=== PATIENT | male | born 1960 | race Caucasian/White ===

== ENCOUNTER → 2022-08-29 10:26 | Outpatient (BNVA) | payer BC, SELFPAY | PROVIDERS: Family Provider Family Medicine; PCP Family Medicine; Visit Provider Family Medicine | DX: R05.3 Chronic cough (principal) | CPT/HCPCS: 71046 ==

== ENCOUNTER → 2022-10-19 13:24 | Outpatient (BNVA) | payer BC, MEDICAID, SELFPAY | PROVIDERS: Family Provider Family Medicine; PCP Family Medicine; Visit Provider Internal Medicine | DX: R07.9 Chest pain, unspecified (principal) | CPT/HCPCS: 36415; 80048; 83880; 93005 ==

== ENCOUNTER 2022-11-07 12:11 | Outpatient (CLI) | payer BC, MEDICAID, SELFPAY ==
--- NOTE | 2022-11-07 12:30 | USCV_ITS ---
Syd Gibbs Age: 61 Gender: M : 1960 Exam Date: 11/07/2022 12:29 Ordering Phys: Jakob Foy M.D ([email or web address]) Technologist: Gilles Ball Exam Location: [facility] [place] Indication: sob BP: 180 / 90 HR: 96 Rhythm: Sinus Technical Quality: Adequate MEASUREMENTS (Male / Female) Normal Values 2D ECHO LV Diastolic Diameter PLAX 3.3 cm 4.2 - 5.9 / 3.9 - 5.3 cm LV Systolic Diameter PLAX 1.9 cm IVS Diastolic Thickness 1.1 cm 0.6 - 1.0 / 0.6 - 0.9 cm IVS Systolic Thickness 2.3 cm LVPW Diastolic Thickness 1.6 cm 0.6 - 1.0 / 0.6 - 0.9 cm LVPW Systolic Thickness 1.9 cm LVOT Diameter 2.1 cm LV Ejection Fraction 2D Teich 74.0 % LV Ejection Fraction MOD 2C 61.5 % LV Ejection Fraction 2C AL 61.3 % LA Diameter 4.2 cm Aorta at Sinotubular Diameter 2.9 cm M-MODE Aortic Annulus Diameter 3.3 cm LA Ao Ratio MM 1.4 MV E Point Septal Separation 0.6 cm DOPPLER AV Peak Velocity 147.0 cm/s LVOT Peak Velocity 105.0 cm/s AV Area Cont Eq vti 2.7 cm squared AV Area Cont Eq pk 2.5 cm squared MV E' Velocity 10.0 cm/s TR Peak Velocity 120.0 cm/s TR Peak Gradient 5.8 mmHg TV Peak E Velocity 74.0 cm/s Right Atrial Pressure 3.0 mmHg Pulmonary Artery Systolic Pressu 8.8 mmHg PV Peak Velocity 127.0 cm/s FINDINGS Left Ventricle Left ventricle is normal in size. LV systolic function is normal with EF of 55 to 60%. No regional wall motion abnormalities are seen. Right Ventricle Normal in size and function Right Atrium Normal in size Left Atrium Normal in size Mitral Valve Structurally normal mitral valve. Aortic Valve Structurally normal aortic valve. No significant stenosis or regurgitation. Tricuspid Valve Mild tricuspid regurgitation. Insufficient TR jet to calculate RVSP. Pulmonic Valve Not well visualized Pericardium Normal Aorta Normal in size IVC Appears to be normal CONCLUSIONS LV systolic function is normal with EF of 55 to 60%. Mild tricuspid regurgitation No comparison studies are available. Jakob Foy MD (Electronically Signed) Final Date: 07 November 2022 17:15 S
[2022-11-07] MEDS: perflutren protein-a microsphr 0.22 mg/mL SDV 3 mL IV (15:52)
== END 2022-11-07 12:12 | disposition home or self-care (01) ==
PROVIDERS: Visit Provider Internal Medicine
DX: R06.02 Shortness of breath (principal); I07.1 Rheumatic tricuspid insufficiency
CPT/HCPCS: 93306; C8929; Q9956

== ENCOUNTER 2022-11-18 15:19 | Outpatient (CLI) | payer BC, MEDICAID, SELFPAY ==
--- NOTE | 2022-11-18 15:38 | CTR_ITS ---
PROCEDURE INFORMATION: Exam: CT Chest Without and With Contrast; Diagnostic Exam date and time: 11/18/2022 3:48 PM Age: 62 years old Clinical indication: Cough; Prior surgery; Surgery date: 6+ months; Surgery type: Appy; Patient HX: Chronic bronchitis, bilateral legs and feet swelling. TECHNIQUE: Imaging protocol: Diagnostic computed tomography of the chest without and with contrast. Radiation optimization: All CT scans at this facility use at least one of these dose optimization techniques: automated exposure control; mA and/or kV adjustment per patient size (includes targeted exams where dose is matched to clinical indication); or iterative reconstruction. Contrast material: OMNI 350; Contrast volume: 100 ml; Contrast route: INTRAVENOUS (IV); REPORTING DATA: Count of CT and Cardiac NM exams in prior 12 months: This patient has received 0 known CTs and 0 known cardiac nuclear medicine studies in the 12 months prior to the current study. COMPARISON: CR XR chest 2V* [id number] 08/29/2022 10:40 AM RADIATION DOSE METRICS: Total DLP (mGy-cm): 1312.79 FINDINGS: Lungs: Small calcified granuloma is seen upper right lung. A large area of pulmonary parenchymal density or consolidation is seen within the posterior lateral lower right lung and lung base with pleural-based appearance. This measures approximally 8 x 5 cm in size. Some scattered air bronchograms are seen, though with significant component without air bronchograms. Given the rounded and lobular appearance mass is not excluded. No other infiltrate or focal abnormality. Pleural spaces: No pleural effusion or pneumothorax. Heart: Unremarkable. Mild cardiomegaly. No pericardial effusion. No coronary artery calcification. Lymph nodes: Several lymph nodes are seen within the anterior and mid mediastinum, though measuring 1.2 cm or less in size. This could indicate mild reactive lymph nodes. Vasculature: Unremarkable. No aortic aneurysm. Bones/joints: No acute findings. Soft tissues: Unremarkable. Other findings: Images through the upper-most abdomen show no significant abnormality. CT/CT chest wo/w con [id number] IMPRESSION: 1. Large area of pulmonary parenchymal density/consolidation within the posterolateral lower right lung and lung base with pleural-based appearance. Some scattered air bronchograms, though demonstrating significant portion without air bronchograms. Given the rounded and lobular appearance, mass not excluded. 2. Mildly reactive lymph nodes in the anterior and mid mediastinum.
[2022-11-18] MEDS: iohexol 350 mg/mL 500 mL Btl (per mL) IV (15:58)
[2022-11-18 16:06] LABS: Anion Gap 14.3 (5-19); Blood Urea Nitrogen 9 mg/dL (8-23); Calcium 8.4 mg/dL (8.5-10.5); Carbon Dioxide 27 mmol/L (22-29); Chloride 101 mmol/L (98-107); Glomerular Filtration Rate 86.1 mL/min (90-130); Glucose 126 mg/dL (65-115); NT Pro B Type Natriuretic Pept 273 pg/mL (0-125); Osmolality Calculated 288 mOsm/kg (285-295); Potassium 3.3 mmol/L (3.5-5.1); Sodium 139 mmol/L (136-145)
== END 2022-11-18 15:20 | disposition home or self-care (01) ==
LOC: RAD 15:22
PROVIDERS: Internal Medicine; Visit Provider Family Medicine
DX: J42 Unspecified chronic bronchitis (principal); I10 Essential (primary) hypertension; R06.09 Other forms of dyspnea; R59.0 Localized enlarged lymph nodes; J98.4 Other disorders of lung
CPT/HCPCS: 36415; 71270; 80048; 83880; Q9967

== ENCOUNTER → 2022-12-01 15:45 | Outpatient (BNVA) | payer BC, MEDICAID, SELFPAY | PROVIDERS: Visit Provider Internal Medicine | DX: I10 Essential (primary) hypertension (principal); R06.09 Other forms of dyspnea; E11.9 Type 2 diabetes mellitus without complications | CPT/HCPCS: 80048; 83880 ==

== ENCOUNTER → 2022-12-15 15:12 | Outpatient (BNVA) | payer BC, MEDICAID, SELFPAY | PROVIDERS: Visit Provider Internal Medicine Pulmonary Disease | DX: J30.2 Other seasonal allergic rhinitis (principal); R06.09 Other forms of dyspnea; R05.8 Other specified cough; R91.8 Other nonspecific abnormal finding of lung field | CPT/HCPCS: 36415; 82785; 85025; 86003; 87070; 87205 ==

== ENCOUNTER 2022-12-24 05:32 | Outpatient (CLI) | payer BC, MEDICAID, SELFPAY ==
--- NOTE | 2022-12-24 12:00 | PETR_ITS ---
PROCEDURE INFORMATION: Exam: PET/CT Skull Base to Mid-thigh Exam date and time: 12/24/2022 12:54 PM Age: 62 years old Clinical indication: Abnormal findings; Lung mass; Prior surgery; Surgery date: 6+ months; Surgery type: Appy LABS AND CLINICAL REPORTS: Glucose: 79 mg/dl Treatment strategy for malignancy (PET staging): Initial Staging (PI) TECHNIQUE: Imaging protocol: Following at least four-hour fasting and following the injection of radiopharmaceutical, low dose CT images were obtained. Then, PET images were obtained. Attenuation corrected images were constructed using the CT scan. Fused images of PET and CT were reviewed. The standardized uptake values (SUV) reported below are maximum values within a region of interest, expressed in gm/ml. Exam includes orbital meatal line to mid-thigh. Radiopharmaceutical: 11.76 mCi F-18 FDG (Fluorodeoxyglucose), IV. Time of imaging post radiopharmaceutical administration: 1 hour Injection site: Right hand COMPARISON: CT chest wo/w con [id number] 11/18/2022 3:48 PM FINDINGS: Brain: Visualized brain has normal physiologic uptake. Pharynx: No abnormal uptake. Larynx: No abnormal uptake. Thyroid: A non radiotracer avid low-density left thyroid nodule measures 7 mm on series 3, image 36 compatible with a benign finding. Lungs, pleura and trachea: A right upper lobe calcified granuloma is noted. A large region of pleural based masslike consolidation in the posterior right lower lobe is noted in a region measuring 8.9 x 5.8 cm in the axial plane (previously 8.0 x 5.6 cm), SUV max 7.6. Heart: Normal physiologic uptake. Mediastinal space: No abnormal uptake. Diaphragm: Small hiatal hernia. Liver: No abnormal uptake. Gallbladder and bile ducts: No abnormal uptake. Pancreas: No abnormal uptake. Spleen: No abnormal uptake. Adrenal glands: No abnormal uptake. Kidneys and ureters: Normal physiologic uptake. Stomach and bowel: An approximately 1 cm focus of abnormal uptake in the mid sigmoid colon is present, SUV max 8.4 on PET series 5, image 131 without a definite correlating lesion on the CT images. Assessment of the bowel wall is limited without intraluminal contrast. There are scattered colonic diverticula. Vasculature: No abnormal uptake. Lymph nodes: Mildly elevated uptake within right hilar lymph nodes is noted, SUV max 3.9 on series 3, image 53 and SUV max 3.4 on image 58. Assessment of the size of lymph nodes in these regions is limited without intravenous contrast. A subcarinal lymph node measuring 1.8 x 1.0 cm on series 3, image 55 is present, SUV max 3.9. Bones/joints: There is abnormal uptake in the anterior left 3rd rib, SUV max 4.4 without a well-defined lesion on the CT images. There is mild diffuse vertebral body spondylosis. Soft tissues: There is benign-appearing likely physiologic or inflammatory uptake in the right gluteus medius muscle, SUV max 4.6, without a definite correlating lesion on the CT images. Mild prominence of bilateral breast tissue is greatest on the left, without significant elevated uptake suggestive of gynecomastia. METRICS: Mediastinal blood pool: SUV max 3.3 [facility] [id number] IMPRESSION: 1. Masslike consolidation in the posteroinferior right lower lobe is slightly increased in size and demonstrates elevated uptake (SUV max 7.6) concerning for malignancy. Atypical infectious involvement cannot be entirely excluded. 2. Mild uptake within right hilar lymph nodes and a subcarinal lymph node is noted which may be inflammatory, infectious or neoplastic in etiology. 3. Focal abnormal uptake in the anterior left 3rd rib. Although no definitive correlating lesion is noted on the CT images, the asymmetric appearance and degree of uptake is concerning for possible underlying metastatic lesion and/or minimally displaced fracture. MRI of the chest with and without contrast may be useful for further evaluation. 4. A small focal region of elevated uptake in the sigmoid colon is noted which may be physiologic in nature. An inflammatory or malignant etiology cannot be excluded. Assessment of the bowel wall is limited without intraluminal contrast. 5. Additional nonurgent findings as detailed above.
== END 2022-12-24 05:33 | disposition home or self-care (01) ==
LOC: RAD 12-26 05:32
PROVIDERS: Visit Provider Internal Medicine Pulmonary Disease
DX: R91.8 Other nonspecific abnormal finding of lung field (principal)
CPT/HCPCS: 78815; A9552

== ENCOUNTER 2023-01-03 08:23 | Day surgery (SDC) | payer BC, MEDICAID, SELFPAY ==
[2022-12-30 12:33] VITALS: BMI 43.4
[2023-01-03] VITALS (11 sets, daily range): BP systolic 112–165; BP diastolic 64–105; PULSE 70–88; RESP 16–24; TEMP 36.2–36.6; O2SAT 92–99
--- NOTE | 2023-01-03 08:38 | CT_ITS ---
WS: [id number] CT CHEST TECHNIQUE: Noncontrast CT of the chest with coronal and sagittal reformatted images. CLINICAL INFORMATION: FOR ION ROBOTIC ASSISTED BIOPSIES COMPARISON: PET/CT 12/24/[address] chest 11/18/2022 DLP: [address] scans at [facility] use at least one of these dose optimization techniques: automated e xposure control; mA and/or kV adjustment per patient size (includes targeted exams where dose is matc hed to clinical indication); or iterative reconstruction. FINDINGS: No significant changes since the recent PET/CT. Stable masslike consolidation in the posterior inferi or RIGHT lower lobe with increased FDG activity on the recent PET/CT suspicious for neoplasm. Small esophageal hiatal hernia. Adrenal glands are normal. Cardiomegaly. IMPRESSION: Images obtained for preoperative planning and bronchoscopy purposes
--- NOTE | 2023-01-03 09:09 | P.HPUD_ITS ---
Surgery/Procedure H&P Update DATE OF PROCEDURE: January 03, 2023 DATE H&P PERFORMED: 01/03/23 H&P UPDATE INFORMATION: I have reviewed H&P completed within last 30 days, I have examined patient prior to procedure, No changes to prior documentation and Changes to prior documentation as noted here CHANGES TO PREVIOUS DOCUMENTATION: Patient sendy CT 12/24/2022-which showed masslike consolidation in posterior inferior right lower lobe slightly increased in size and demonstrates elevated uptake SUV 7.6. Concerning for malignancy. Mild uptake within right hilar lymph nodes and subcarinal lymph node is noted with may be inflammatory, infec tious or neoplastic in etiology. Focal abnormal uptake in anterior left third rib PREOP DIAGNOSIS: suspected malignancy PRIMARY INDICATION FOR PROCEDURE: PETactive posterior right lower lobe mass - rule out malignancy PLANNED PROCEDURE: Operation Date: 01/03/23 09:30 Proposed Procedures p ION robotic bronch with EBUS [id number],[id number],[id number],[id number],22102,71 250, R91.8(Not Applicable) - Jeff Nelson MD s Ebus(Not Applicable) - Jeff Nelson MD
[2023-01-03] MEDS: sodium chloride 0.9% 1,000 ML 30 ML IV (09:31)
[2023-01-03] MEDS: ipratropium 0.5 mg/2.5 mL Neb INHALATION (10:18)
--- NOTE | 2023-01-03 10:34 | SC_ITS ---
WS: [id number] EXAMINATION: C-arm FL for Bronchoscopy ORDER DATE: 01/03/2023 10:34 AM : FINDINGS/IMPRESSION: C ARM imaging and fluoroscopy assistance was provided for bronchoscopic biopsy. Bronchoscopy time 56 seconds
[2023-01-03] MEDS: lidocaine 1% INJ 10 mL (per mL) XX (10:41)
[2023-01-03 11:12] LABS: Anion Gap 11.9 (5-19); Blood Urea Nitrogen 11 mg/dL (8-23); Calcium 8.6 mg/dL (8.5-10.5); Carbon Dioxide 28 mmol/L (22-29); Chloride 104 mmol/L (98-107); Glucose 94 mg/dL (65-115); Osmolality Calculated 289 mOsm/kg (285-295); Potassium 3.9 mmol/L (3.5-5.1); Sodium 140 mmol/L (136-145)
[2023-01-03 11:49] LABS: Cyto Order Verification Order Verified
[2023-01-03 11:50] LABS: Apprearance, Bronch Wash Bloody (CLEAR); Bronch Source Right Lower Lobe; Color, Bronc Wash Red; PATH Referral Yes
--- NOTE | 2023-01-03 12:34 | XR_ITS ---
WS: [id number] CHEST XRAY TECHNIQUE: Portable chest. CLINICAL INFORMATION: post bronchoscopy biopsies of right lower lobe mass COMPARISON: CT earlier today FINDINGS: Status post ION robotic assisted biopsy Heart: Cardiomegaly. Lungs: Stable known wedge-shaped masslike consolidation in the RIGHT lower lobe laterally appears unc hanged. No pneumothorax. Bones: Normal visualized bony structures. IMPRESSION: Normal for postoperative purposes. No pneumothorax
--- NOTE | 2023-01-03 12:35 | P.OP_ITS ---
Operative Report Date of procedure: January 03, 2023 Pre-op diagnosis: Preop Diagnosis suspected malignancy Post-op diagnosis: same Surgeon: Jeff Nelson MD [facility] Brief History: Mr. Syd Gibbs is a 62-year-old male with past medical history of diabetes, hypertension referred for eval and treat SOB and chronic cough per Dr. Smith, pt states that he never smoked. He has significant second hand smoke exposure to parents and spouse smoking He complained of chronic productive cough X 11 months, brings up a lot of phlegm most of the time it is whitish sputum and sometimes green. Has been treated with several courses of antibiotics. Chest x-ray 08/29/2022 showed minimal bilateral lower lobe pulmonary opacities, no suspicious nodules or masses.? Due to ongoing chronic cough-a CT chest was performed on 11/18/2022 which showed large area of pulmonary parenchymal density/consolidation 8 x 5 cm in size within posterior lateral lower right lung and lung base with pleural-based appearance with some scattered air bronchograms-this looks suspicious for neoplasm.? There were mildly reactive lymph nodes in the anterior and mid mediastinum. Patient came to see me in clinic 12/15/2022-we went over all the CT scan images and I have expressed my concern about this mass is suspicious for being malignant and needs biopsies to either rule in or rule out biopsies. At that point patient and his were concerned about their insurance being but they said they will sorted out. I have briefly went about the plan of action to obtain PET CT scan and if there is increased activity-robotic bronchoscopic biopsies of right lower lobe mass as well as endobronchial ultrasound biopsies of hilar/mediastinal lymph nodes. Also explained about possible complications of bleeding as well as pneumothorax. They verbalized understanding and agreed to proceed with the procedure once the insurance situation is sorted out. Accordingly, he underwent PET/CT 12/24/2022-showed masslike consolidation posterior inferior right lower lobe slightly increased in size and demonstrated elevated uptake SUV 7.6 concerning for malignancy. Mild uptake within right hilar lymph nodes and subcarinal lymph node noted which may be inflammatory, in fectious or neoplastic in etiology. I have called patient and updated the PET/CT findings to the patient on phone. 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 Today comes for bronchoscopic evaluation and to obtain biopsies. Procedure: Procedure: 65361 Dx Bronchoscope w/Washings or airway inspection 00702 Dx Bronchoscope w/BAL 09807 Bronch with computer image guided Navigational Bronchoscopy 78001 Bronchoscopy w/Transbronchial lung biopsy(s), single lobe 04207 Bronchoscopy w/Transbronchial needle aspiration biopsy(s), tracheal, main stem, and/or lobar bronchus 42859 Bronchoscopy w/ therapeutic aspiration of the tracheobronchial tree (clearance of airway secretions, removal of mucus plugs) 72950 EBUS Sampling >=3 nodes 01449 EBUS Diag or Interven Peripheral lesion (radial EBUS) Indication: Description of the procedure: The procedure was explained to the patient and the consent was obtained.? The patient was brought to the OR. Anesthesia: The patient underwent endotracheal intubation for general anesthesia. Local anesthesia: The distal trachea-Rossana, right and left mainstem bronchi were anesthetized with 1% lidocaine, 3 mL. Following induction of general anesthesia, the flexible bronchoscope was advanced through the? ET tube.? The? lower trachea mucosa appeared normal, no endotracheal lesion was seen.? The rossana was sharp.? The rossana, the right and left mainstem bronchi are anesthetized with 1% lidocaine.? In a systematic manner bilateral bronchial tree was then examined. ? The bronchoscope was then introduced into the right mainstem bronchus.? The right upper lobe, right middle lobe and right lower lobe bronchi were examined up to the third subsegmental level and no abnormalities were identified.some of the subsegments of right lower lobe were narrow with possible extrinsic compression. Mucosa also appeared edematous in both lower lobe segments with no definite endobronchial lesion, or active bleeding or mucous plug.There were significant clear secretions which were suctioned right away.(27107). The bronchoscope was advanced into the left mainstem bronchus.? The mucosa appeared normal with no endobronchial lesions.? The left upper lobe, lingula and left lower lobe bronchi were examined up to the third subsegmental level and no abnormalities were identified.? Mucosa appeared normal with no endobronchial lesion, active bleeding or mucous plug.??There were significant clear secretions-which were suctioned right away.(12679) After initial inspection as well as airway clearance with flexible bronchoscope(27696),?ION robotic assisted navigational bronchoscope (32310)?was introduced-and right lower lobe lesion was accessed.? After?confirming the location with radial EBUS (19611), under the fluoroscopy guidance? -we were able to obtain biopsies using fine-needle, forceps.There was some evidence of grade 2 bleeding-cold saline was instilled.? Bronchoalveolar lavage was also taken from posterior segment of right lower lobe After making sure there is no active bleeding navigational bronchoscope was retracted and introduced?Endobronchial ultrasound EBUS (78611). ? With the help of EBUS, identified a lymph node at station 4L, station 11 L, station 4R and station 7.??Fine-needle aspiration biopsies? were taken from station 4L, station 11 L, station 4R and station 7.? (35330) After taking the biopsies EBUS retracted-diagnostic bronchoscope was introduced to check for any evidence of active bleeding. There was some evidence of bleeding-controlled with instillation of cold saline. After making sure there is no active bleeding bronchoscope was retracted and procedure terminated. ? Samples: A.? Left lower lobe lesion 1.? Total of 4 passes were made using?needle aspiration(98925); we do not have onsite pathology and hence all the material was placed in formalin and sent for histopathology 2.? Targeting the same area 5 passes were made using?forceps (10966);?we do not have onsite pathology and hence all the material was placed in formalin and sent for histopathology 3.?Bronchoscope was wedged at the entrance of the posterior segment of right lower lobe, 20 mL of saline was instilled and returned 14 mL of bronchoalveolar lavage (82883).? The fluid was mixed with blood and specks of tissue. Samples for cell count, cytology, microbiology cultures, fungal cultures B.?EBUS guided? Fine-needle aspiration biopsies? were taken from station 4L, station 11 L, station 4R and station 7.? (26374) 1.? Total of 3 passes were made using needle aspiration(73301) from station 4L; all the material was placed in formalin and sent for histopathology 2.? Total of 3 passes were made using needle aspiration(85445) from station 11 L; all the material was placed in formalin and sent for histopathology 3.? Total of 3 passes were made using needle aspiration(07137) from station 4R; all the material was placed in formalin and sent for histopathology 4.? Total of 3 passes were made using needle aspiration(54429) from station 7: all the material was placed in formalin and sent for histopathology ? Complications: None.The patient was extubated and brought to the PACU in stable condition. Postprocedure chest x-ray: There is no evidence of pneumothorax Disposition: Patient can be discharged home in stable condition. ? Pt?and aware that I am going to call him? to update final biopsy results once available.
[2023-01-03 13:02] LABS: Total Cells Counted Bronch 200
[2023-01-03 13:03] LABS: WBC Within 10% 11
[2023-01-03 13:05] LABS: Other Cells, Bronch Wash 13 %
[2023-01-03] MEDS: ondansetron 2 mg/ML SDV 2 mL 4 MG IVP (13:20)
--- NOTE | 2023-01-03 13:55 | ANE.PACU2 ---
Inpatient post-anesthesia follow up: Airway intact: Yes Vital signs: Temperature 97.2 F Pulse Rate 78 Respiratory Rate 16 Blood Pressure 161/83 Pulse Oximetry 95 Oxygen Delivery Me thod Room Air Oxygen Flow Rate 3 Fraction of Inspir ed Oxygen Hydration adequate: Yes Nausea and vomiting: No Pain level: 2 Mental status: Baseline
[2023-01-11 06:32] LABS: PD-L1 (Clone 22C3) by IHC BBPL See Report
== END 2023-01-03 14:05 | disposition home or self-care (01) ==
PROVIDERS: PCP Family Medicine; Visit Provider Internal Medicine Pulmonary Disease
PROC: 0BJ08ZZ Inspection of Tracheobronchial Tree, Via Natural or Artificial Opening Endoscopic (ICD-10-PCS; CPT 31622; principal; 2023-01-03 09:30)
PROC: BB4BZZZ Ultrasonography of Pleura (ICD-10-PCS; 2023-01-03 09:30)
DX: C34.31 Malignant neoplasm of lower lobe, right bronchus or lung (principal); E11.9 Type 2 diabetes mellitus without complications; I10 Essential (primary) hypertension; R06.02 Shortness of breath; R05.9 Cough, unspecified
CPT/HCPCS: 31623; 31624; 31627; 31628; 31629; 31645; 31653; 31654; 71045; 71250; 76000; 80048; 80503; 87070; 87102; 87205; 87206; 88112; 88305; 88341; 88342; 89050; 94640; J2405; J2704; J2710; J3010; J3490; J7030; J7644

== ENCOUNTER 2023-01-12 09:39 | Oncology outpatient (recurring) (ONCR) | payer BC, MEDICAID, SELFPAY | END 2023-01-12 23:59 | disposition home or self-care (01) | PROVIDERS: PCP Family Medicine; Visit Provider Internal Medicine Medical Oncology | DX: Z53.9 Procedure and treatment not carried out, unspecified reason (principal) ==

== ENCOUNTER 2023-01-27 08:08 | Outpatient (CLI) | payer BC, MEDICAID, SELFPAY ==
[2023-01-27 08:28] VITALS: PULSE 81; RESP 18; O2SAT 97
[2023-01-27] MEDS: albuterol 2.5 mg/3 mL Neb INHALATION (08:29)
== END 2023-01-27 08:09 | disposition home or self-care (01) ==
LOC: RT 08:10
PROVIDERS: PCP Family Medicine; Visit Provider Internal Medicine Medical Oncology
DX: C34.90 Malignant neoplasm of unspecified part of unspecified bronchus or lung (principal); R94.2 Abnormal results of pulmonary function studies
CPT/HCPCS: 94060; 94726; 94729; J7613

== ENCOUNTER 2023-02-01 06:40 | Day surgery (SDC) | payer BC, MEDICAID, SELFPAY ==
[2023-01-31 12:59] VITALS: BMI 41.5
[2023-02-01] VITALS (9 sets, daily range): BP systolic 140–178; BP diastolic 73–119; PULSE 70–101; RESP 16–20; TEMP 36.2–36.8; O2SAT 94–96; BMI 41.5
--- NOTE | 2023-02-01 06:00 | W.PM.OPSUD ---
Surgery/Procedure H&P Update DATE OF PROCEDURE: February 01, 2023 DATE H&P PERFORMED: 01/03/23 H&P UPDATE INFORMATION: I have reviewed H&P completed within last 30 days, I have examined patient prior to procedure, No changes to prior documentation and H&P is in [facility] on date indicated PLANNED PROCEDURE: Operation Date: 02/01/23 08:15 Proposed Procedures p [id number] port [id number](Not Applicable) - Ashutosh Mcintyre MD
--- NOTE | 2023-02-01 07:21 | SC_ITS ---
WS: [id number] C-arm FL for CVA [id number] REASON FOR EXAM: intraop FINDINGS: Chemotherapy infusion port placement over the right chest with trans right internal jugular infusion catheter the tip of the catheter appears to be at the cavoatrial junction. IMPRESSION: Right chemotherapy infusion port and transjugular catheter in proper position and without abnormality .
[2023-02-01] MEDS: ceFAZolin 2,000 MG in sodium chloride 0.9% (plus) 50 ML 100 MG IV (07:23)
[2023-02-01] MEDS: sodium chloride 0.9% 1,000 ML 30 ML IV (07:23)
[2023-02-01] MEDS: lidocaine-epi 2% 20 mL INJ INJECTION (08:16)
[2023-02-01] MEDS: heparin, porcine 1,000 unit/mL INJ 10 mL 6000 UNIT IRRIGATION (08:16)
--- NOTE | 2023-02-01 08:20 | ANES.PREANE2 ---
Pre-Anesthetic Assessment Height/Weight: Height 1.78 m Weight 131.542 kg Temp Pulse Resp BP Pulse Ox O2 Del Method 98.3 F 101 H 17 154/82 96 Room Air 02/01/23 07:06 02/01/23 07:06 02/01/23 07:06 02/01/23 07:10 02/01/23 07:06 02/01/23 07:06 Operation Date: 02/01/23 08:15 Proposed Procedures p [id number] port [id number](Not Applicable) - Ashutosh Mcintyre MD Was Beta Jenn taken within 24 hours: Yes Was Clonidine taken within 24 hours: N/A Last intake: Intake Last Liquid Date 01/31/23 Last Liquid Time 19:00 Last Solid Date 01/31/23 Last Solid Time 18:45 Exam alert, oriented x 3, clear to auscultation bilaterally and regular rate & rhythm Airway Submandibular: within normal limits Cervical ROM: within normal limits Mallampati: Class II Dentition: chipped Comments: Comments: Poor dentition History/ROS No significant history except as noted and No significant complaints Pulmonary Cough CV/HEM Hypertension Metabolic Diabetes Mellitus, Hyperlipidemia and Morbid Obesity Anesthetic Plan ASA status: 3 Anesthesia: Choice Risk of > 500 ml blood loss (7ml/kg in children): No Medications/Allergies Home Medications Medication Instructions Recorded Confirmed Last Taken Type metoprolol tartrate 50 mg tablet 50 mg PO BID 06/19/19 01/31/23 02/01/23 History potassium chloride 10 mEq 10 meq PO DAILY #90 tabs 11/23/22 01/31/23 01/31/23 Rx tablet,extended release telmisartan 80 mg tablet 80 mg PO DAILY #90 tabs 11/23/22 01/31/23 01/31/23 Rx cetirizine 10 mg capsule (Zyrtec) 10 mg PO TID 12/15/22 02/01/23 01/31/23 History furosemide 20 mg tablet (Lasix) 20 mg PO TID 12/15/22 01/31/23 01/31/23 History amlodipine 5 mg tablet 5 mg PO DAILY #90 tabs 12/16/22 02/01/23 02/01/23 Rx atorvastatin 10 mg tablet 20 mg PO DAILY 01/12/23 02/01/23 02/01/23 History codeine 6.3 mg-guaifenesin 100 8 ml PO PRN Cough 01/31/23 01/31/23 History mg/5 mL oral liquid (M-Clear WC) Allergies Allergy/AdvReac Type Severity Reaction Status Date / Time No Known Allergies Allergy Verified 02/01/23 07:00 Current Medications Generic Name Dose Route Start Last Admin Trade Name Freq PRN Reason Stop Dose Admin Sodium Chloride 1,000 mls @ 30 mls/hr 02/01/23 07:00 02/01/23 07:23 Sodium Chloride 0.9% IV 02/02/23 06:59 30 mls/hr .Q24H BABAK Administration PFSH Anesthesia Medical History Diabetes Hypertension Family History Mother Anesthesia complication Cancer Sister Anesthesia complication Cancer Father Cancer Hypertension Denies family history of Diabetes CAD (coronary artery disease) Clotting disorder Dementia Hyperlipidemia Psychiatric illness Chronic kidney disease (CKD) Suicide Bleeding disorder Family history of premature coronary artery disease Lung disease Stroke Social History Smoking and tobacco status: never smoked Second hand smoke exposure: No Alcohol intake: current Data Anesthesia Cardiac Studies: Echocardiogram 11/07/22
--- NOTE | 2023-02-01 08:28 | PM.OP ---
Operative Report Date of procedure: February 01, 2023 Pre-op diagnosis: Lung Cancer Procedure done: Insertion of right internal jugular port-a-cath Surgeon: Ashutosh Mcintyre MD Complications: none Findings: normal vascular anatomy, adequate catheter position at the end of the case. Brief History: 62 y/o M with history of lung cancer requiring chemotherapy, who presents for port-a-cath placement after discussion of risk and benefits as documented on my clinic note Procedure: Patient was brought into the OR, he was placed in the supine position. Moderate anesthesia sedation was given. The right neck was prepped and draped in the usual sterile fashion as well as the right chest. Timeout was conducted. The right internal jugular vein was identified with ultrasound, local anesthesia was infiltrated in the tissue. I then cannulated the right internal jugular vein under direct ultrasound guidance, watching the needle tip entered the vein. A wire was advanced, wire position was verified with ultrasound and fluoroscopy. The needle was removed. The wire was clamped to the drapes. I then made a 2.5 cm incision on the right upper chest and a 0.5 cm incision surrounding the wire in the neck. The chest incision was deepened to the subcutaneous tissue and a pocket was created for the Port-A-Cath. A hemostat was used to create a tunnel from the chest wound to the neck wound. The Port-A-Cath was placed into the created pocket and the catheter tunneled to the neck using the tunneler. The catheter was measure under fluoroscopic guidance and cut to length. A peel-off sheath and introducer was advanced over the wire under direct fluoroscopic guidance and the position was verified, with I subsequently remove the wire and then the introducer leaving just a peel-off sheath. The catheter was advanced through the peel-off sheath and the peel-away sheath was removed leaving the catheter in place. Fluoroscopy show adequate position of the catheter. The catheter was flushed and show evidence of blood return as well as for flushing. The neck wound was closed with 4-0 Monocryl and Dermabond was applied on top. The chest wound was closed with #3-0 Vicryl for the subcutaneous tissue and 4-0 Monocryl for the skin. I then accessed the Port-A-Cath using a straight needle and Hep-Lock with strong flush. Dermabond was applied. At the end of the procedure all counts were correct, patient tolerated well the procedure and was transferred to the PACU in stable condition.
--- NOTE | 2023-02-01 18:20 | ANE.PACU2 ---
Inpatient post-anesthesia follow up: Airway intact: Yes Vital signs: Temperature 97.2 F Pulse Rate 70 Respiratory Rate 16 Blood Pressure 148/89 Pulse Oximetry 94 Oxygen Delivery Me thod Room Air Oxygen Flow Rate Fraction of Inspir ed Oxygen Hydration adequate: Yes Nausea and vomiting: No Pain level: 1 Mental status: Baseline
== END 2023-02-01 09:37 | disposition home or self-care (01) ==
PROVIDERS: PCP Family Medicine; Visit Provider Surgery
PROC: (CPT 36561; principal; 2023-02-01 08:15)
DX: C34.90 Malignant neoplasm of unspecified part of unspecified bronchus or lung (principal); I10 Essential (primary) hypertension; E11.9 Type 2 diabetes mellitus without complications; E78.5 Hyperlipidemia, unspecified; E66.01 Morbid (severe) obesity due to excess calories; Z68.41 Body mass index [BMI] 40.0-44.9, adult
CPT/HCPCS: 36561; 76000; 77001; C1788; J0690; J1100; J1644; J2250; J2371; J2405; J2704; J3010; J7030

== ENCOUNTER 2023-02-10 09:18 | Oncology outpatient (recurring) (ONCR) | payer BC, MEDICAID, SELFPAY ==
--- NOTE | 2023-01-20 12:57 | N.ONRAD NP_ITS ---
Radiation Oncology New Patient Visit Patient: Syd Gibbs MR#: [id number] : 1960> Age: 62> Sex: Male> Dictated by: Leandro Parkinson Date of Service: 01/20/2023 Referring Physician(s) : Gerald Montoya MD; Jeff Nelson MD Diagnosis: Lung, right, lower lobe, moderately differentiated adenocarcinoma, Stage T4 N0 M0 Radiotherapy to date: Summary > No prior radiation therapy. Chief Complaint / History of Present Illness: Mr. Gibbs is a 62-year-old man who developed a cough in January of last year which never resolved. It was productive of mucus without purulence or hemoptysis. The cough continued through the winter and in August he had a chest x-ray which did not show any major abnormality of concern. The cough continued with minimal other symptoms and a CT scan was obtained in November 2022. This study revealed an approximately 8 x 5 cm area of consolidation in the lateral, posterior right lower lobe. The findings were consistent with either a mass or infection. A PET scan was performed 12/24/2022. The study showed the mass to measure approximately 9 x 6 cm. The max SUV was 7.6. The finding was of concern for malignancy with an atypical infectious process not entirely excluded. Mild uptake was noted in right hilar nodes and a subcarinal lymph node, inflammatory versus infectious versus neoplastic. Other findings were focal area of uptake in the anterior left third rib and a focal region of uptake in the sigmoid colon. Mr. Gibbs underwent a navigational bronchoscopy on 01/03/2023. Tissue obtained by both forceps and needle biopsy from the right lower lobe showed moderately differentiated adenocarcinoma. Ultrasound-guided biopsies of station 4R, 4L, 7, and 11 R were negative for malignancy. Mr. Gibbs recently saw Dr. Montoya who offered referral to a thoracic surgeon, as imaging does not conclusively rule out surgery as an option. A referral was not made. Mr. Gibbs comes in to discuss radiation as a component of concomitant chemoradiation therapy for cure. He and his are questioning whether the chemotherapy and radiation can be used in conjunction with surgery. He still has the cough productive of clear to white frothy sputum. No purulent sputum. No hemoptysis other than a small amount after his bronchoscopy and biopsies. He does have shortness of breath with exertion. It a very varies according to the heat and humidity. He has had not had pulmonary function studies. He has been evaluated by Dr. Foy for his heart. He had an echocardiogram which was normal. Medications have been adjusted. At this time the patient still has dyspnea with exertion and has 1-2+ lower extremity edema. Current Medications: Medications listed 1 week ago were amlodipine 5 mg daily, atorvastatin 10 mg daily, benzonatate 200 mg twice daily Zyrtec 10 mg, codeine-guaifenesin 6.3-100 mg per 5 cc, furosemide 20 mg 3 times daily, metoprolol 50 mg twice daily potassium chloride ER 10 mEq daily, telmisartan 80 mg daily and Anoro Ellipta 1 inhalation daily. He says the inhaler does not help. Allergies: Lisinopril-cough Medical History: No history of collagen vascular disease. No previous radiation therapy. 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 He has been sedentary since that time. In his medical history diabetes and hypertension are listed. He did not mention anything about diabetes and it does not appear that he is on any medication for blood sugar. Surgical History: He did not mention any past surgery and none is listed in his chart. Family History: Father, mother, and sister had cancer. Social History: , present. He is a never smoker though he has been exposed to fumes in his occupation and to secondhand smoke with family. No excessive alcohol intake. Current Complaints / Review of Systems: . No headaches, blackouts, vision disturbance, lightheadedness, loss of strength in extremities. No chest pain, though he has had dyspnea with exertion and peripheral edema over the past year. Cough related to the present illness with clear and white frothy sputum production. No purulent sputum, hemoptysis, or wheezing. No digestion disturbance or change in bowel habits. He has stiffness and aches in his hips and knees. No other joint or bone complaints. Vital Signs: Performed on 01/20/2023 9:23 AM BMI - 42.013 kg/m2 (high), Height - 70 in, Weight - 292.8 lbs, Temperature - 97.8 f, Pulse - 72 /min, Respiration - 18 /min, O2 Sat - 95 % (low), Pain - 0, Fatigue - 0 and BP - 126/ 74 mm(hg). Physical Exam: Alert, oriented, no acute distress. No cervical or supraclavicular lymphadenopathy. Lungs clear to percussion. On auscultation no wheezes or rhonchi. He does have localized rales over most of the right lower lobe. Heart rhythm regular. No murmur or gallop or rub. Abdomen - no distention. No organomegaly or mass or tenderness. Musculoskeletal - He has notable noticeable stiffness in his knees and hips when he arises from a sitting position. The stiffness improves with ambulation. He has no bone tenderness. Neuro exam is intact with no cranial nerve deficits. Strength is excellent and symmetrical in all 4 extremities. Finger-nose exam and rnqr-tn-[id number] exam are normal. Gait is normal without assistance. Performance Status: ECOG 1 Pathology: Moderately differentiated adenocarcinoma Lab: Pulse ox 95% on room air at rest. PFTs were ordered today. Imaging: See HPI. Large area of right lower lobe consolidation that is located posterior and lateral adjacent to the chest wall. Impression: Adenocarcinoma confirmed by biopsy. In reviewing his studies, we are uncertain if his cancer is resectable. I spoke with [facility] about Mr. Gibbs seeing Dr. Martinez. It is requested that we send a disc of his chest x-ray, chest CT, PET scan, and PFTs. The disc of his imaging will be sent. I ordered PFTs today and those results will be sent as soon as they are available. and Mrs. Gibbs are understandably concerned about the length of time it has taken to diagnose the malignancy and get the appropriate work-up done for treatment. Even if he has resectable disease, I think the resection could be aided by preoperative chemotherapy and radiation. I discussed that with and Mrs. Gibbs. I discussed a typical course of radiation given for approximately 5-1/2 weeks with weekly chemotherapy. I discussed the side effects and the possible complications. If he is judged not to have resectable disease or is inoperable, then a boost would be given in conjunction with chemotherapy to finish out a course of curative treatment. Plan: Simulation performed today. We will get radiation and chemotherapy arranged. We will send the above-mentioned documentation to [facility] to have him seen by Dr. Martinez or one of the other thoracic surgeons. Signed by: 01/20/2023 12:56:29 PM <<Signature on File>> Time spent with patient: CPT Code: CPT Code:
[2023-02-07 08:31] VITALS: BP 125/85; PULSE 81; RESP 16; TEMP 36.9; O2SAT 98
[2023-02-07 08:44] LABS: Basophils # 0.1 10^3/uL (0.0-0.1); Basophils % 0.4 %; Eosinophils # 0.3 10^3/uL (0.0-0.8); Hematocrit 42.4 % (37-53); Lymphocytes # 1.5 10^3/uL (0.8-4.8); Lymphocytes % 11.6 %; Mean Corpuscular HGB Conc 31.1 g/dL (30-55); Mean Corpuscular Hemoglobin 26.3 pg (27-33); Mean Corpuscular Volume 84.5 fl (82-101); Mean Platelet Volume 8.5 fL (7.4-10.4); Monocytes # 1.3 10^3/uL (0.2-0.9); Neutrophils # 9.88 10^3/uL (1.8-7.7); Neutrophils % 75.6 %; Nucleated Red Blood Cells % 0 %; Platelet Count 458 10^3/cmm (157-399); Red Blood Count 5.02 10^6/uL (3.85-5.65); Red Cell Distribution Width 13.8 % (12.1-15.1); White Blood Count 13.06 10^3/uL (3.29-11.43)
[2023-02-07 09:33] LABS: Alanine Aminotransferase 14 U/L (0-41); Albumin Level 3.4 g/dL (3.5-5.2); Alkaline Phosphatase 130 U/L (40-130); Anion Gap 11.4 (5-19); Aspartate Amino Transferase 15 U/L (0-40); Blood Urea Nitrogen 12 mg/dL (8-23); Calcium 8.4 mg/dL (8.5-10.5); Carbon Dioxide 30 mmol/L (22-29); Chloride 100 mmol/L (98-107); Globulin 3.9 g/dL (1.3-4.6); Glomerular Filtration Rate 86.1 mL/min (90-130); Glucose 130 mg/dL (65-115); Osmolality Calculated 288 mOsm/kg (285-295); Potassium 3.4 mmol/L (3.5-5.1); Sodium 138 mmol/L (136-145); Total Protein 7.3 g/dL (6.6-8.7)
[2023-02-07] MEDS: sodium chloride 0.9% 250 ML 75 ML IV (11:59)
[2023-02-07] MEDS: acetaminophen 325 mg Tablet 650 MG PO (11:59)
[2023-02-07] MEDS: diphenhydrAMINE 50 mg/mL SDV 1mL 25 MG IVP (12:00)
[2023-02-07] MEDS: famotidine 20 mg/2 mL INJ IVP (12:02)
[2023-02-07] MEDS: palonosetron 0.25 mg/5 mL SDV IVP (12:04)
[2023-02-07] MEDS: dexamethasone 20 MG in sodium chloride 0.9% 50 ML 188 MG IV (12:07)
--- NOTE | 2023-02-07 13:50 | ONCRAD TMN_ITS ---
Radiation Oncology Weekly Treatment Management Patient: Sai Mendoza MR#: [id number] : 1960> Attending Physician: Carlton Serra Date of Service: 02/07/2023 Referring Physician(s) : Diagnosis: C34.90 - Malignant neoplasm of unspecified part of unspecified bronchus or lung, Diagnosed 01/03/2023 (Active) Radiotherapy to date: Course: Lung 2022, Treatment Site: RT Lung50.4Gy, Ref. ID: [id number], Energy: 6X, Dose/Fx (cGy): 180, #Fx: , Dose Correction (cGy): 0, Total Dose (cGy): 180, Start Date: 02/07/2023, End Date: 02/07/2023, Elapsed Days: 0 Reason for visit: The patient is being seen today as part of their regularly scheduled weekly on treatment visits to assess for acute toxicities from radiotherapy. Review of Systems: Just began combined treatment today. Eating less with some weight loss. Lifelong non-smoker. Some cough which did improve after bronch when mucous plug was removed. Vital Signs: Performed on 02/07/2023 9:12 AM BMI - 41.037 kg/m2 (high), Height - 70 in, Weight - 286 lbs, Temperature - 98.5 f, Pulse - 81 /min, Respiration - 16 /min, O2 Sat - 99 %, Pain - 0, Fatigue - 0 and BP - 125/ 85 mm(hg). Physical Exam: Imaging: Radiation therapy imaging related to accurate target localization (i.e. KV, MV and CBCT) was reviewed. Appropriate changes, if any, were made to ensure treatment accuracy. Plan: Good tolerance of treatment. Continue as planned. Telemedicine Consent Patient seen today via Telemedicine by agreement and consent of patient. Telemedicine technology used during the visit include audio and, as available, review of images. This patient encounter is appropriate and reasonable under the circumstances given the patient???s particular presentation at this time. The patient has been advised of the potential risks and limitations of this mode of treatment (including but not limited to the absence of in-person examination) and has agreed to be treated in a remote fashion in spite of them. Any and all of the patient???s/patient???s family???s questions on this issue have been answered and I have made no promises or guarantees to the patient. The patient has also been advised to contact this office for worsening conditions or problems, and seek emergency medical treatment and/or call 911 if the patient deems either necessary. Signed by: Carlton Serra 02/07/2023 1:49:49 PM
[2023-02-07] MEDS: CARBOplatin 300 MG in sodium chloride 0.9% 500 ML 530 MG IV (13:57)
[2023-02-07 15:20] VITALS: BP 127/85; PULSE 78; RESP 18; TEMP 36.6; O2SAT 98
== END 2023-02-11 23:59 | disposition home or self-care (01) ==
PROVIDERS: Internal Medicine Medical Oncology; PCP Family Medicine; Visit Provider Radiology Radiation Oncology
DX: Z51.0 Encounter for antineoplastic radiation therapy (principal); C34.31 Malignant neoplasm of lower lobe, right bronchus or lung
CPT/HCPCS: 77300; 77301; 77334; 77338; 77386; 80053; 85025; 96367; 96375; 96413; 96417; J1100; J1200; J1642; J2469; J3490; J7040; J7050; J9045; J9267

== ENCOUNTER 2023-02-28 10:00 | Oncology outpatient (recurring) (ONCR) | payer BC, MEDICAID, SELFPAY ==
[2023-02-14 07:40] VITALS: BP 118/75; PULSE 96; RESP 16; TEMP 37.3; O2SAT 95
[2023-02-14 08:02] LABS: Basophils % 0.4 %; Eosinophils # 0.1 10^3/uL (0.0-0.8); Eosinophils % 1.2 %; Hematocrit 38.2 % (37-53); Lymphocytes # 1.1 10^3/uL (0.8-4.8); Lymphocytes % 9.8 %; Mean Corpuscular HGB Conc 31.4 g/dL (30-55); Mean Corpuscular Hemoglobin 26.8 pg (27-33); Mean Corpuscular Volume 85.3 fl (82-101); Mean Platelet Volume 8.7 fL (7.4-10.4); Monocytes % 8.9 %; Neutrophils # 8.82 10^3/uL (1.8-7.7); Neutrophils % 79.2 %; Nucleated Red Blood Cells % 0 %; Platelet Count 386 10^3/cmm (157-399); Red Blood Count 4.48 10^6/uL (3.85-5.65); Red Cell Distribution Width 14.3 % (12.1-15.1); White Blood Count 11.13 10^3/uL (3.29-11.43)
[2023-02-14 08:20] LABS: Alanine Aminotransferase 11 U/L (0-41); Albumin Level 3.1 g/dL (3.5-5.2); Alkaline Phosphatase 122 U/L (40-130); Anion Gap 13.5 (5-19); Aspartate Amino Transferase 13 U/L (0-40); Blood Urea Nitrogen 9 mg/dL (8-23); Calcium 8.3 mg/dL (8.5-10.5); Carbon Dioxide 28 mmol/L (22-29); Chloride 97 mmol/L (98-107); Creatinine Clr Calc Pharmacy 151.3143; Globulin 3.4 g/dL (1.3-4.6); Glucose 156 mg/dL (65-115); Osmolality Calculated 282 mOsm/kg (285-295); Potassium 3.5 mmol/L (3.5-5.1); Sodium 135 mmol/L (136-145); Total Bilirubin 1.4 mg/dL (0.15-1.2); Total Protein 6.5 g/dL (6.6-8.7)
[2023-02-14] MEDS: sodium chloride 0.9% 250 ML 75 ML IV (09:47)
[2023-02-14] MEDS: acetaminophen 325 mg Tablet 650 MG PO (09:48)
[2023-02-14] MEDS: diphenhydrAMINE 50 mg/mL SDV 1mL 25 MG IVP (09:49)
[2023-02-14] MEDS: famotidine 20 mg/2 mL INJ IVP (09:54)
[2023-02-14] MEDS: palonosetron 0.25 mg/5 mL SDV IVP (09:56)
[2023-02-14] MEDS: dexamethasone 20 MG in sodium chloride 0.9% 50 ML 210 MG IV (10:01)
[2023-02-14] MEDS: CARBOplatin 300 MG in sodium chloride 0.9% 500 ML 530 MG IV (12:26)
[2023-02-14 13:56] VITALS: BP 127/69; PULSE 85; RESP 18; TEMP 36.7; O2SAT 96
--- NOTE | 2023-02-14 14:12 | ONCRAD TMN_ITS ---
Radiation Oncology Weekly Treatment Management Patient: Sai Velarde MR#: [id number] : 1960 Attending Physician: Carlton Serra Date of Service: 02/14/2023 Referring Physician(s) : Diagnosis: C34.90 - Malignant neoplasm of unspecified part of unspecified bronchus or lung, Diagnosed 01/03/2023 (Active) Radiotherapy to date: Course: Lung 2022, Treatment Site: RT Lung50.4Gy, Ref. ID: [id number], Energy: 6X, Dose/Fx (cGy): 180, #Fx: , Dose Correction (cGy): 0, Total Dose (cGy): 1,080, Start Date: 02/07/2023, Elapsed Days: 7 Reason for visit: The patient is being seen today as part of their regularly scheduled weekly on treatment visits to assess for acute toxicities from radiotherapy. Review of Systems: Ongoing unrelenting cough. No improvement with any therapies. No sore throat. Some loss of appetite but eating ok. He has retained fluids and on Lasix. Fluid seems to be most apparent and tight around knees. Vital Signs: Performed on 02/14/2023 9:40 AM BMI - 40.75 kg/m2 (high), Height - 70 in, Weight - 284 lbs, Temperature - 99.1 f, Pulse - 96 /min, Respiration - 16 /min, O2 Sat - 95 % (low), Pain - 0, Fatigue - 0 and BP - 118/ 75 mm(hg). Physical Exam: Imaging: Radiation therapy imaging related to accurate target localization (i.e. KV, MV and CBCT) was reviewed. Appropriate changes, if any, were made to ensure treatment accuracy. Plan: Good tolerance of treatment. Continue as planned. Signed by: Carlton Serra 02/14/2023 2:11:16 PM
[2023-02-21 07:36] VITALS: BP 101/69; PULSE 97; RESP 16; TEMP 36.6; O2SAT 96
[2023-02-21 07:53] LABS: Basophils % 0.4 %; Eosinophils # 0.1 10^3/uL (0.0-0.8); Eosinophils % 1.3 %; Lymphocytes # 1.3 10^3/uL (0.8-4.8); Mean Corpuscular HGB Conc 31.7 g/dL (30-55); Mean Corpuscular Hemoglobin 26.8 pg (27-33); Mean Corpuscular Volume 84.5 fl (82-101); Mean Platelet Volume 8.8 fL (7.4-10.4); Monocytes # 0.6 10^3/uL (0.2-0.9); Monocytes % 7.1 %; Neutrophils # 6.94 10^3/uL (1.8-7.7); Neutrophils % 76.5 %; Nucleated Red Blood Cells % 0 %; Platelet Count 255 10^3/cmm (157-399); Red Blood Count 4.85 10^6/uL (3.85-5.65); Red Cell Distribution Width 15.6 % (12.1-15.1); White Blood Count 9.07 10^3/uL (3.29-11.43)
[2023-02-21 08:10] LABS: Alanine Aminotransferase 10 U/L (0-41); Albumin Level 3.3 g/dL (3.5-5.2); Alkaline Phosphatase 119 U/L (40-130); Anion Gap 14.2 (5-19); Aspartate Amino Transferase 17 U/L (0-40); Blood Urea Nitrogen 15 mg/dL (8-23); Calcium 7.9 mg/dL (8.5-10.5); Carbon Dioxide 28 mmol/L (22-29); Chloride 99 mmol/L (98-107); Globulin 3.1 g/dL (1.3-4.6); Glomerular Filtration Rate 86.1 mL/min (90-130); Glucose 131 mg/dL (65-115); Osmolality Calculated 289 mOsm/kg (285-295); Potassium 3.2 mmol/L (3.5-5.1); Sodium 138 mmol/L (136-145); Total Bilirubin 1.1 mg/dL (0.15-1.2); Total Protein 6.4 g/dL (6.6-8.7)
[2023-02-21] MEDS: sodium chloride 0.9% 250 ML 75 ML IV (09:49)
[2023-02-21] MEDS: acetaminophen 325 mg Tablet 650 MG PO (09:51)
[2023-02-21] MEDS: diphenhydrAMINE 50 mg/mL SDV 1mL 25 MG IVP (09:52)
[2023-02-21] MEDS: famotidine 20 mg/2 mL INJ IVP (09:56)
[2023-02-21] MEDS: palonosetron 0.25 mg/5 mL SDV IVP (10:00)
[2023-02-21] MEDS: dexamethasone 20 MG in sodium chloride 0.9% 50 ML 188 MG IV (10:06)
[2023-02-21] MEDS: CARBOplatin 300 MG in sodium chloride 0.9% 500 ML 530 MG IV (11:40)
--- NOTE | 2023-02-21 12:31 | ONCRAD TMN_ITS ---
Radiation Oncology Weekly Treatment Management Patient: Syd Gibbs> MR#: [id number] : 1960> Attending Physician: Carlton Serra Date of Service: 02/21/2023 Referring Physician(s) : Diagnosis: C34.90 - Malignant neoplasm of unspecified part of unspecified bronchus or lung, Diagnosed 01/03/2023 (Active) Radiotherapy to date: Course: Lung 2022, Treatment Site: RT Lung50.4Gy, Ref. ID: [id number], Energy: 6X, Dose/Fx (cGy): 180, #Fx: , Dose Correction (cGy): 0, Total Dose (cGy): 1,800, Start Date: 02/07/2023, Elapsed Days: 14 Reason for visit: The patient is being seen today as part of their regularly scheduled weekly on treatment visits to assess for acute toxicities from radiotherapy. Review of Systems: Persistent unproductive cough now present for 13 months. No sore throat. Not eating as much as usual. Some stable exertional SOB. Vital Signs: Performed on 02/21/2023 9:25 AM BMI - 40.75 kg/m2 (high), Height - 70 in, Weight - 284 lbs, Temperature - 97.9 f, Pulse - 97 /min, Respiration - 16 /min, O2 Sat - 96 %, Pain - 3, Fatigue - 0 and BP - 101/ 69 mm(hg). Physical Exam: Imaging: Radiation therapy imaging related to accurate target localization (i.e. KV, MV and CBCT) was reviewed. Appropriate changes, if any, were made to ensure treatment accuracy. Plan: Good tolerance of treatment. Continue as planned. Signed by: Carlton Serra 02/21/2023 12:30:50 PM Telemedicine Consent Patient seen today via Telemedicine by agreement and consent of patient. Telemedicine technology used during the visit include audio and, as available, review of images. This patient encounter is appropriate and reasonable under the circumstances given the patient???s particular presentation at this time. The patient has been advised of the potential risks and limitations of this mode of treatment (including but not limited to the absence of in-person examination) and has agreed to be treated in a remote fashion in spite of them. Any and all of the patient???s/patient???s family???s questions on this issue have been answered and I have made no promises or guarantees to the patient. The patient has also been advised to contact this office for worsening conditions or problems, and seek emergency medical treatment and/or call 911 if the patient deems either necessary.
[2023-02-21 13:05] VITALS: BP 107/69; PULSE 81; RESP 17; TEMP 36.8; O2SAT 94
[2023-02-28 07:33] VITALS: BP 126/82; PULSE 96; RESP 16; TEMP 36.8; O2SAT 97
[2023-02-28 07:48] LABS: Basophils % 0.4 %; Eosinophils % 0.7 %; Hematocrit 39.3 % (37-53); Lymphocytes # 0.7 10^3/uL (0.8-4.8); Lymphocytes % 13.4 %; Mean Corpuscular HGB Conc 31.8 g/dL (30-55); Mean Corpuscular Hemoglobin 27.1 pg (27-33); Mean Corpuscular Volume 85.1 fl (82-101); Mean Platelet Volume 8.5 fL (7.4-10.4); Monocytes # 0.6 10^3/uL (0.2-0.9); Monocytes % 11.3 %; Neutrophils # 3.98 10^3/uL (1.8-7.7); Neutrophils % 73.8 %; Nucleated Red Blood Cells % 0 %; Platelet Count 194 10^3/cmm (157-399); Red Blood Count 4.62 10^6/uL (3.85-5.65); Red Cell Distribution Width 16.8 % (12.1-15.1); White Blood Count 5.39 10^3/uL (3.29-11.43)
[2023-02-28 09:11] LABS: Alanine Aminotransferase 13 U/L (0-41); Albumin Level 3.1 g/dL (3.5-5.2); Alkaline Phosphatase 103 U/L (40-130); Anion Gap 12.5 (5-19); Aspartate Amino Transferase 20 U/L (0-40); Blood Urea Nitrogen 7 mg/dL (8-23); Calcium 8.2 mg/dL (8.5-10.5); Carbon Dioxide 28 mmol/L (22-29); Chloride 99 mmol/L (98-107); Creatinine Clr Calc Pharmacy 149.5867; Globulin 3.4 g/dL (1.3-4.6); Glucose 161 mg/dL (65-115); Osmolality Calculated 283 mOsm/kg (285-295); Potassium 3.5 mmol/L (3.5-5.1); Sodium 136 mmol/L (136-145); Total Bilirubin 0.8 mg/dL (0.15-1.2); Total Protein 6.5 g/dL (6.6-8.7)
[2023-02-28] MEDS: sodium chloride 0.9% 250 ML 75 ML IV (11:32)
[2023-02-28] MEDS: palonosetron 0.25 mg/5 mL SDV IVP (11:32)
[2023-02-28] MEDS: famotidine 20 mg/2 mL INJ IVP (11:33)
[2023-02-28] MEDS: diphenhydrAMINE 50 mg/mL SDV 1mL 25 MG IVP (11:34)
[2023-02-28] MEDS: acetaminophen 325 mg Tablet 650 MG PO (11:36)
[2023-02-28] MEDS: dexamethasone 20 MG in sodium chloride 0.9% 50 ML 188 MG IV (12:12)
[2023-02-28] MEDS: CARBOplatin 300 MG in sodium chloride 0.9% 500 ML 530 MG IV (13:41)
[2023-02-28 14:59] VITALS: BP 132/79; PULSE 92; RESP 16; TEMP 36.6; O2SAT 95
--- NOTE | 2023-03-01 09:15 | ONCRAD TMN_ITS ---
Radiation Oncology Weekly Treatment Management Patient: Syd Gibbs#: [id number] : 1960 Attending Physician: Carlton Serra Date of Service: 02/28/2023 Referring Physician(s) : Diagnosis: C34.90 - Malignant neoplasm of unspecified part of unspecified bronchus or lung, Diagnosed 01/03/2023 (Active) Radiotherapy to date: Course: Lung 2022, Treatment Site: RT Lung50.4Gy, Ref. ID: [id number], Energy: 6X, Dose/Fx (cGy): 180, #Fx: , Dose Correction (cGy): 0,, Total Dose (cGy): 2,700, Start Date: 02/07/2023, Elapsed Days: Reason for visit: The patient is being seen today as part of their regularly scheduled weekly on treatment visits to assess for acute toxicities from radiotherapy. Review of Systems: Some cough. Cough and fever began last week. Now on antibiotics ( levofloxacin) Now back to baseline. Some sinus drainage. Swallowing ok. Eating ok. Energy improved. Vital Signs: Performed on 02/28/2023 8:03 AM BMI - 42.902 kg/m2 (high), Height - 70 in, Weight - 299 lbs, Temperature - 98.3 f, Pulse - 96 /min, Respiration - 16 /min, O2 Sat - 97 %, Pain - 0, Fatigue - 4 and BP - 126/ 82 mm(hg). Physical Exam: Imaging: Radiation therapy imaging related to accurate target localization (i.e. KV, MV and CBCT) was reviewed. Appropriate changes, if any, were made to ensure treatment accuracy. Plan: Good tolerance of treatment. Continue as planned. Signed by: Carlton Serra 03/01/2023 9:13:59 AM Telemedicine Consent Patient seen today via Telemedicine by agreement and consent of patient. Telemedicine technology used during the visit include audio and, as available, review of images. This patient encounter is appropriate and reasonable under the circumstances given the patient???s particular presentation at this time. The patient has been advised of the potential risks and limitations of this mode of treatment (including but not limited to the absence of in-person examination) and has agreed to be treated in a remote fashion in spite of them. Any and all of the patient???s/patient???s family???s questions on this issue have been answered and I have made no promises or guarantees to the patient. The patient has also been advised to contact this office for worsening conditions or problems, and seek emergency medical treatment and/or call 911 if the patient deems either necessary.
== END 2023-02-28 23:59 | disposition home or self-care (01) ==
PROVIDERS: Internal Medicine Medical Oncology; Nurse Practitioner Family; PCP Family Medicine; Visit Provider Radiology Radiation Oncology
DX: Z51.0 Encounter for antineoplastic radiation therapy (principal); Z51.11 Encounter for antineoplastic chemotherapy; C34.31 Malignant neoplasm of lower lobe, right bronchus or lung; Z79.899 Other long term (current) drug therapy; Z79.52 Long term (current) use of systemic steroids
CPT/HCPCS: 77336; 77386; 80053; 85025; 96367; 96368; 96374; 96375; 96413; 96417; 99024; J1100; J1200; J1642; J2469; J3490; J7040; J7050; J9045; J9267

== ENCOUNTER 2023-03-14 08:30 | Oncology outpatient (recurring) (ONCR) | payer BC, MEDICAID, SELFPAY ==
[2023-03-06 09:30] VITALS: BP 130/85; PULSE 106; RESP 16; TEMP 36.9; O2SAT 98
[2023-03-06 09:42] LABS: Basophils % 0.2 %; Eosinophils % 0.6 %; Hematocrit 38.6 % (37-53); Lymphocytes # 0.4 10^3/uL (0.8-4.8); Mean Corpuscular HGB Conc 31.9 g/dL (30-55); Mean Corpuscular Hemoglobin 26.8 pg (27-33); Mean Corpuscular Volume 84.1 fl (82-101); Mean Platelet Volume 8.6 fL (7.4-10.4); Monocytes # 0.5 10^3/uL (0.2-0.9); Monocytes % 8.6 %; Neutrophils # 5.13 10^3/uL (1.8-7.7); Neutrophils % 83.1 %; Nucleated Red Blood Cells % 0 %; Platelet Count 146 10^3/cmm (157-399); Red Blood Count 4.59 10^6/uL (3.85-5.65); Red Cell Distribution Width 17.2 % (12.1-15.1); White Blood Count 6.17 10^3/uL (3.29-11.43)
[2023-03-06 10:04] LABS: Alanine Aminotransferase 11 U/L (0-41); Albumin Level 3.5 g/dL (3.5-5.2); Alkaline Phosphatase 105 U/L (40-130); Anion Gap 11.6 (5-19); Aspartate Amino Transferase 19 U/L (0-40); Blood Urea Nitrogen 10 mg/dL (8-23); Calcium 8.6 mg/dL (8.5-10.5); Carbon Dioxide 29 mmol/L (22-29); Chloride 97 mmol/L (98-107); Creatinine Clr Calc Pharmacy 149.1543; Globulin 3.1 g/dL (1.3-4.6); Glucose 139 mg/dL (65-115); Osmolality Calculated 279 mOsm/kg (285-295); Potassium 3.6 mmol/L (3.5-5.1); Sodium 134 mmol/L (136-145); Total Bilirubin 0.7 mg/dL (0.15-1.2); Total Protein 6.6 g/dL (6.6-8.7)
[2023-03-06] MEDS: sodium chloride 0.9% 250 ML 75 ML IV (12:07)
[2023-03-06] MEDS: acetaminophen 325 mg Tablet 650 MG PO (12:09)
[2023-03-06] MEDS: diphenhydrAMINE 50 mg/mL SDV 1mL 25 MG IVP (12:10)
[2023-03-06] MEDS: famotidine 20 mg/2 mL INJ IVP (12:13)
[2023-03-06] MEDS: dexamethasone 20 MG in sodium chloride 0.9% 50 ML 188 MG IV (12:17)
[2023-03-06] MEDS: CARBOplatin 300 MG in sodium chloride 0.9% 500 ML 530 MG IV (13:54)
[2023-03-06 15:00] VITALS: BP 134/84; PULSE 84; RESP 16; TEMP 36.7; O2SAT 96
[2023-03-06] MEDS: palonosetron 0.25 mg/5 mL SDV IVP (15:14)
--- NOTE | 2023-03-08 12:11 | ONCRAD TMN_ITS ---
Radiation Oncology Weekly Treatment Management Patient: Syd Gibbs MR#: [id number] : 1960 Attending Physician: Kimo Philip Date of Service: 03/08/2023 Referring Physician(s) : Diagnosis: C34.90 - Malignant neoplasm of unspecified part of unspecified bronchus or lung, Diagnosed 01/03/2023 (Active) Radiotherapy to date: Course: Lung 2022, Treatment Site: RT Lung50.4Gy, Ref. ID: [id number], Energy: 6X, Dose/Fx (cGy): 180, #Fx: , Dose Correction (cGy): 0, Total Dose (cGy): 3,600, Start Date: 02/07/2023, Elapsed Days: Reason for visit: The patient is being seen today as part of their regularly scheduled weekly on treatment visits to assess for acute toxicities from radiotherapy. Review of Systems: Patient is present today with his . He has been seen by Dr. Martinez, the thoracic surgeon at [facility] in [place] and is being considered for possible surgery. He and his had questions regarding the surgical options versus continuing radiation therapy. Patient indicates that his breathing symptoms have improved slightly with the radiation given thus far. He denies hemoptysis, fever or chills. He denies any difficulty with swallowing and reports that his appetite remains good. Vital Signs: Performed on 03/08/2023 9:22 AM BMI - 39.746 kg/m2 (high), Height - 70 in, Weight - 277 lbs, Temperature - 97.7 f, Pulse - 97 /min, Respiration - 18 /min, O2 Sat - 98 %, Pain - 0, Fatigue - 2 and BP - 119/ 80 mm(hg). Physical Exam: Alert and oriented male appearing his stated age. He has slight inspiratory wheezes however there are no rales or rhonchi. Patient ambulatory without assistance. Imaging: Radiation therapy imaging related to accurate target localization (i.e. KV, MV and CBCT) was reviewed. Appropriate changes, if any, were made to ensure treatment accuracy. Plan: I have encouraged Mr. Gbibs to contact Dr. Martinez's office and request that the PET/CT and cardiac stress test be obtained as soon as possible in order that they have the most current information available to make the decision regarding radiation therapy boost versus surgery. Plan to continue the initial prescribed radiation therapy. Continuation of the boost will depend upon the decision regarding surgery. Signed by: Kimo Phiilp 03/08/2023 12:09:18 PM
[2023-03-14 08:43] LABS: Basophils % 0.4 %; Eosinophils % 0.4 %; Hematocrit 37.3 % (37-53); Lymphocytes # 0.4 10^3/uL (0.8-4.8); Lymphocytes % 13.6 %; Mean Corpuscular HGB Conc 32.2 g/dL (30-55); Mean Corpuscular Hemoglobin 27.1 pg (27-33); Mean Corpuscular Volume 84.2 fl (82-101); Mean Platelet Volume 8.5 fL (7.4-10.4); Monocytes # 0.4 10^3/uL (0.2-0.9); Neutrophils # 1.88 10^3/uL (1.8-7.7); Neutrophils % 70.8 %; Nucleated Red Blood Cells % 0 %; Platelet Count 236 10^3/cmm (157-399); Red Blood Count 4.43 10^6/uL (3.85-5.65); Red Cell Distribution Width 18.6 % (12.1-15.1); White Blood Count 2.65 10^3/uL (3.29-11.43)
[2023-03-14 09:12] LABS: Alanine Aminotransferase 16 U/L (0-41); Albumin Level 3.5 g/dL (3.5-5.2); Alkaline Phosphatase 114 U/L (40-130); Anion Gap 12.7 (5-19); Aspartate Amino Transferase 19 U/L (0-40); Blood Urea Nitrogen 10 mg/dL (8-23); Calcium 8.8 mg/dL (8.5-10.5); Carbon Dioxide 29 mmol/L (22-29); Chloride 95 mmol/L (98-107); Creatinine Clr Calc Pharmacy 149.1543; Globulin 3.4 g/dL (1.3-4.6); Glucose 160 mg/dL (65-115); Osmolality Calculated 278 mOsm/kg (285-295); Potassium 3.7 mmol/L (3.5-5.1); Sodium 133 mmol/L (136-145); Total Bilirubin 0.7 mg/dL (0.15-1.2); Total Protein 6.9 g/dL (6.6-8.7)
--- NOTE | 2023-03-14 09:46 | ONCRAD TMN_ITS ---
Radiation Oncology Weekly Treatment Management Patient: Sai Velarde> MR#: [id number] : 1960> Attending Physician: Dr. Collette Sung Date of Service: 03/14/2023 Fractions: 24 out of 28 Referring Physician(s) : Diagnosis: C34.90 - Malignant neoplasm of unspecified part of unspecified bronchus or lung, Diagnosed 01/03/2023 (Active) Radiotherapy to date: Course: Lung 2022, Treatment Site: RT Lung50.4Gy, Ref. ID: [id number], Energy: 6X, Dose/Fx (cGy): 180, #Fx: , Dose Correction (cGy): 0, Total Dose (cGy): 4,320, Start Date: 02/07/2023, Elapsed Days: 35 Reason for visit: The patient is being seen today as part of their regularly scheduled weekly on treatment visits to assess for acute toxicities from radiotherapy. Review of Systems: Patient continues to have a cough which has had for 14 months. He uses Robitussin with codeine for this. He has also developed a rash over his arms legs and back from the chemotherapy. His respiratory status is remained stable. He has difficulty walking across the yard secondary to shortness of breath and cough. Vital Signs: Performed on 03/14/2023 9:15 AM BMI - 39.631 kg/m2 (high), Height - 70 in, Weight - 276.2 lbs, Temperature - 98.5 f, Pulse - 106 /min (high), Respiration - 18 /min, O2 Sat - 98 %, Pain - 0, Fatigue - 7 and BP - 120/ 85 mm(hg). Physical Exam: On examination he has a erythematous rash that extends across his arms and upper back. His color is otherwise pink without evidence of cyanosis. He does cough during our encounter. His respiratory status is regular and nonlabored. Gait and speech intact, alert and oriented x3. Imaging: Radiation therapy imaging related to accurate target localization (i.e. KV, MV and CBCT) was reviewed. Appropriate changes, if any, were made to ensure treatment accuracy. Plan: Patient has 4 treatments remaining. He is waiting to hear from Dr. Martinez in [place] about surgery. He was told he needed a stress test and a PET scan prior to surgery. At this point it did not appear that there is anything for us to do here other than to wait to hear from them if he should not be a candidate for surgery. We will otherwise complete his treatments by next Monday. Signed by: Dr. Collette Sung 03/14/2023 9:45:18 AM
[2023-03-14] MEDS: sodium chloride 0.9% 250 ML 75 ML IV (11:19)
[2023-03-14] MEDS: diphenhydrAMINE 50 mg/mL SDV 1mL IVP (11:19)
[2023-03-14] MEDS: acetaminophen 325 mg Tablet 650 MG PO (11:23)
[2023-03-14] MEDS: famotidine 20 mg/2 mL INJ IVP (11:23)
[2023-03-14] MEDS: palonosetron 0.25 mg/5 mL SDV IVP (11:27)
[2023-03-14] MEDS: dexamethasone 20 MG in sodium chloride 0.9% 50 ML 188 MG IV (11:32)
[2023-03-14] MEDS: PACLitaxeL 80 MG in sodium chloride 0.9%(non-DEHP) 250 ML 263.33 MG IV (11:57)
[2023-03-14] MEDS: CARBOplatin 300 MG in sodium chloride 0.9% 500 ML 530 MG IV (13:07)
[2023-03-14] MEDS: dexamethasone 4 mg/mL INJ IVP (13:29)
[2023-03-14 14:40] VITALS: BP 134/78; PULSE 96; O2SAT 97
== END 2023-03-14 23:59 | disposition home or self-care (01) ==
PROVIDERS: Internal Medicine Medical Oncology; PCP Family Medicine; Visit Provider Radiology Radiation Oncology
DX: Z51.0 Encounter for antineoplastic radiation therapy (principal); C34.31 Malignant neoplasm of lower lobe, right bronchus or lung; Z51.11 Encounter for antineoplastic chemotherapy; R21 Rash and other nonspecific skin eruption; Z79.899 Other long term (current) drug therapy
CPT/HCPCS: 77014; 77336; 77386; 80053; 85025; 96367; 96375; 96413; 96417; 99024; J1100; J1200; J1642; J2469; J3490; J7040; J7050; J9045; J9267

== ENCOUNTER 2023-03-20 08:30 | Oncology outpatient (recurring) (ONCR) | payer BC, MEDICAID, SELFPAY ==
[2023-03-20 09:13] VITALS: BP 128/93; PULSE 103; RESP 16; TEMP 36.2; O2SAT 96
[2023-03-20 09:51] LABS: Basophils % 0.2 %; Eosinophils % 0.7 %; Hematocrit 38.9 % (37-53); Lymphocytes % 23.7 %; Mean Corpuscular HGB Conc 31.6 g/dL (30-55); Mean Corpuscular Hemoglobin 27.2 pg (27-33); Mean Corpuscular Volume 86.1 fl (82-101); Mean Platelet Volume 8.5 fL (7.4-10.4); Monocytes # 0.8 10^3/uL (0.2-0.9); Monocytes % 18.7 %; Neutrophils # 2.32 10^3/uL (1.8-7.7); Neutrophils % 55.5 %; Nucleated Red Blood Cells % 0 %; Platelet Count 258 10^3/cmm (157-399); Red Blood Count 4.52 10^6/uL (3.85-5.65); Red Cell Distribution Width 20.7 % (12.1-15.1); White Blood Count 4.18 10^3/uL (3.29-11.43)
[2023-03-20 10:44] LABS: Alanine Aminotransferase 19 U/L (0-41); Albumin Level 3.6 g/dL (3.5-5.2); Alkaline Phosphatase 106 U/L (40-130); Anion Gap 13.9 (5-19); Aspartate Amino Transferase 30 U/L (0-40); Blood Urea Nitrogen 11 mg/dL (8-23); Calcium 8.6 mg/dL (8.5-10.5); Carbon Dioxide 28 mmol/L (22-29); Chloride 99 mmol/L (98-107); Glucose 140 mg/dL (65-115); Osmolality Calculated 286 mOsm/kg (285-295); Potassium 3.9 mmol/L (3.5-5.1); Sodium 137 mmol/L (136-145); Total Bilirubin 0.6 mg/dL (0.15-1.2); Total Protein 6.6 g/dL (6.6-8.7)
--- NOTE | 2023-03-20 10:51 | N.ONRD TS_ITS ---
Radiation Oncology Treatment Summary Patient: Syd Gibbs MR#: [id number] : 1960 Age: 62 Sex: Male Dictated by: Dr. Collette Sung Date of Service: 03/20/2023 Referring Physician(s) : Diagnosis: C34.90 - Malignant neoplasm of unspecified part of unspecified bronchus or lung, Diagnosed 01/03/2023 (Active) Radiotherapy to Date: Course: Lung 2022, Treatment Site: RT Lung50.4Gy, Ref. ID: [id number], Energy: 6X, Dose/Fx (cGy): 180, #Fx: 28 / 28, Dose Correction (cGy): 0, Total Dose (cGy): 5,040, Start Date: 02/07/2023, End Date: 03/20/2023, Elapsed Days: 41 Clinical Summary: The patient tolerated RT well. Plan: End of treatment today. Continue on the above medication until the skin reaction resolves. Follow up in one month. Signed by: Dr. Collette Sung>03/20/2023 10:51:13 AM <<Signature on File>>
== END 2023-04-13 23:59 | disposition home or self-care (01) ==
PROVIDERS: Internal Medicine; PCP Family Medicine; Visit Provider Radiology Radiation Oncology
DX: Z51.0 Encounter for antineoplastic radiation therapy (principal); C34.31 Malignant neoplasm of lower lobe, right bronchus or lung; Z51.11 Encounter for antineoplastic chemotherapy; Z95.828 Presence of other vascular implants and grafts; Z79.899 Other long term (current) drug therapy; Z51.81 Encounter for therapeutic drug level monitoring; Z79.52 Long term (current) use of systemic steroids
CPT/HCPCS: 36591; 77014; 77336; 77386; 77427; 80053; 85025; 99024; J1642

== ENCOUNTER 2023-04-25 05:51 | Day surgery (SDC) | payer BC, MEDICAID, SELFPAY ==
[2023-04-25] VITALS (10 sets, daily range): BP systolic 108–177; BP diastolic 62–129; PULSE 64–88; RESP 14–18; TEMP 36.3–36.4; O2SAT 93–100; BMI 40.0
[2023-04-25] MEDS: sodium chloride 0.9% 1,000 ML 30 ML IV ×2 (06:17→08:08)
--- NOTE | 2023-04-25 07:04 | P.HP_ITS ---
Providers/Chief Complaint Admitting Physician: Jeff Nelson MD, [facility] Referring Physican: Dr. 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 He had presented with persistent cough. Chest CT on 11/18/2022 showed a large area of pulmonary parenchymal density/consolidation within the posterior lateral lower right lung, mass not excluded. Several mediastinal lymph nodes were borderline enlarged, likely reactive. PET/CT on 12/24/2022 showed masslike consolidation in the posterior inferior right lower lobe, SUV max 7.6, concerning for malignancy. Uptake within right hilar lymph nodes and a subcarinal lymph node were felt to be consistent with inflammatory, infectious, or neoplastic etiology. Focal uptake was noted in the anterior left third rib. On 01/03/2023 he underwent navigational bronchoscopy/EBUS. Biopsies of the right lower lobe lesion showed moderately differentiated adenocarcinoma. FNA biopsies of station 4R, station 4L, station 7, and station 11R were negative for malignancy. The tumor was reported to be P-L1 negative, TPS <1%. With those findings, he was recommended to undergo chemoradiation utilizing weekly carboplatin/paclitaxel for chemosensitization. He began chemoradiation on 02/07/2023. He completed radiation on 03/20/2023 to a total dose of 5040 cGy administered in 28 fractions. During that time he completed a total of 6 and regions of carboplatin/paclitaxel at the weekly dosing. Overall, he tolerated treatment well. Patient was following up with thoracic surgery for possible resection given stage IIIA. However restaging PET/CT on 03/28/2023 showed an area of abnormal activity in the posterior lateral right lower lobe with maximum SUV 9.71. Activity was noted to be relatively diffuse throughout the area, with no focal nodule identified. There was increased uptake involving right hilar lymph nodes with SUV max 7.49 and in right paratracheal lymph node, both of which appeared larger compared to the prior study. It was noted that at least some of the activity in the lung was likely to be radiation related. Increasing activity in the hilar and paratracheal lymph nodes was felt to be consistent with either neoplastic involvement or reactive lymph nodes due to chemoradiation. With those findings, he was deemed to be ineligible for surgical resection. He followed up with oncology. Dr. Lewis recommended endobronchial ultrasound- guided biopsy of lymph nodes to rule out neoplastic involvement. Accordingly, today scheduled for endobronchial ultrasound-guided biopsy of hilar/paratracheal lymph nodes. I have seen patient and his in preop today. He reported for last 2 weeks he was able to have conversations without having to cough. Overall he said he is doing good. Review of Systems General: Reports: 10 or more systems reviewed and unremarkable except in HPI and below Medications/Allergies Home Medications Medication Instructions Recorded Confirmed Last Taken Type metoprolol tartrate 50 mg tablet 50 mg PO BID 06/19/19 04/25/23 04/25/23 History telmisartan 80 mg tablet 80 mg PO DAILY #90 tabs 11/23/22 04/25/23 04/24/23 Rx furosemide 20 mg tablet (Lasix) 20 mg PO BID 12/15/22 04/25/23 04/24/23 History amlodipine 5 mg tablet 5 mg PO DAILY #90 tabs 12/16/22 04/25/23 04/25/23 Rx atorvastatin 10 mg tablet 10 mg PO DAILY 01/12/23 04/25/23 04/24/23 History lorazepam 1 mg tablet 0.5 - 1 mg (0.5 - 1 x 1 mg) PO Q6H 02/08/23 04/25/23 04/24/23 Rx PRN Severe Nausea #30 tabs multivitamin 1 tab PO DAILY 02/14/23 04/25/23 04/24/23 History cetirizine 10 mg capsule (Zyrtec) 10 mg PO TID PRN allergy symptoms 02/21/23 04/25/23 04/24/23 History triamcinolone acetonide 0.1 % 1 applic topical BID #15 grams 03/14/23 04/25/23 Unknown Rx topical cream potassium chloride 10 mEq 10 meq PO BID 04/20/23 04/25/23 04/24/23 History tablet,extended release prochlorperazine maleate 10 mg 10 mg PO Q6H PRN nausea and 04/25/23 04/25/23 Unknown History tablet (Compazine) vomiting Allergies Allergy/AdvReac Type Severity Reaction Status Date / Time paclitaxel Allergy Severe ALGY-Hives Verified 04/25/23 06:09 PFSH PFSH: Medical History (Updated 04/25/23 @ 07:15 by Jeff Nelson MD) GERD (gastroesophageal reflux disease) Non-small cell lung cancer Diabetes Hypertension Surgical History (Updated 04/14/23 @ 12:41 by Dalton Lewis MD) Port-A-Cath in place History of bronchoscopy (01/03/23) History of appendectomy Family History Mother Anesthesia complication Cancer Sister Anesthesia complication Cancer Father Cancer Hypertension Denies family history of Diabetes CAD (coronary artery disease) Clotting disorder Dementia Hyperlipidemia Psychiatric illness Chronic kidney disease (CKD) Suicide Bleeding disorder Family history of premature coronary artery disease Lung disease Stroke Social History Smoking and tobacco/nicotine status: tobacco/nicotine user, details unknown smokeless tobacco Smokeless tobacco user: chewing tobacco Smokeless tobacco details: quit 10 years prior Second hand smoke exposure: No Alcohol intake: current Dietary Habits: Caffeine: Yes Vital Signs Vitals Signs: Last Vital Signs Temp 97.3 F L 04/25/23 06:11 Pulse 85 04/25/23 06:11 Resp 18 04/25/23 06:11 BP 177/129 04/25/23 06:11 Pulse Ox 97 04/25/23 06:11 O2 Del Method Room Air 04/25/23 06:11 Weight: Weight last 48 hrs Weight 279 lb Physical Exam Narrative: EXAM NARRATIVE: General: alert, NAD HEENT: conj clear, EOMI, PERRL, mmm, Neck: supple, no meningismus Heme: no cervical LAP Respiratory: Inspection: No visible deformity of the chest wall Palpation: Trachea is mildly deviated to the right, bilateral symmetric expansion Percussion: Bilateral tympanic percussion note both anterior and posteriorly Auscultation: Bilateral clear to auscultation both anterior and posteriorly, no crackles wheezing or rhonchi Cardiovascular: rrr, nl s1s2, no mrg Abdomen: soft, nt, nd, no r/g, bs+ Extremities: pulses +, no edema, no c/c : no CVA tenderness Skin: intact, no rash MSK: no back or neck pain Neurologic: grossly intact A&P Assessment and plan (1) Non-small cell lung cancer: This is a 62-year-old man with 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 He completed radiation on 03/20/2023. Overall, he tolerated treatment well. -Patient was following up with thoracic surgery for possible resection given stage IIIA. -Restaging PET/CT on 03/28/2023 showed an area of abnormal activity in the posterior lateral right lower lobe with maximum SUV 9.71. Activity was noted to be relatively diffuse throughout the area, with no focal nodule identified. There was increased uptake involving right hilar lymph nodes with SUV max 7.49 and in right paratracheal lymph node, both of which appeared larger compared to the prior study. It was noted that at least some of the activity in the lung was likely to be radiation related. Increasing activity in the hilar and paratracheal lymph nodes was felt to be consistent with either neoplastic involvement or reactive lymph nodes due to chemoradiation. With those findings, he was deemed to be ineligible for surgical resection. -He followed up with oncology. Dr. Lewis recommended endobronchial ultrasound- guided biopsy of lymph nodes to rule out neoplastic involvement. Accordingly, today scheduled for endobronchial ultrasound-guided biopsy of hilar/paratracheal lymph nodes. I have discussed with patient and his about the complications like pneumothorax given her significant background emphysema which may require chest tube placement. Bleeding is another possibility, majority of times the bleeding is controlled with instillation of cold saline or diluted epinephrine but extremely rarely to bleeding may not be well controlled, which may result in prolonged intubation and possibly bronchial ness placement to protect nonbleeding airway, convalescence in ICU, may even need IR embolization. There is also a very small chance of missing the lesion due to technical factors which may result in repeating the procedure. These are rare possibilities with current software combined with using live radial ultrasound. Patient verbalized understanding for the indication of the procedure, nature of the procedure, alternatives, complications, benefits and wishes to proceed. Qualifiers: Laterality: right Qualified Code(s): C34.91 - Malignant neoplasm of unspecified part of right bronchus or lung (2) Hilar lymphadenopathy: Coding Level of Care Code Acute Code for [facility] Fwd Diagnoses Non-small cell cancer of right lung C34.91 Laterality: right Hilar lymphadenopathy R59.0 Time Spent (min) 21
--- NOTE | 2023-04-25 07:30 | P.ANESASSM_ITS ---
Pre-Anesthetic Assessment Height/Weight: Height 1.78 m Weight 126.552 kg Temp Pulse Resp BP Pulse Ox O2 Del Method 97.3 F L 85 18 177/129 97 Room Air 04/25/23 06:11 04/25/23 06:11 04/25/23 06:11 04/25/23 06:11 04/25/23 06:11 04/25/23 06:11 Preop Diagnosis: lung CA Operation Date: 04/25/23 07:00 Proposed Procedures p EBUS, 43565, 41817, 06128, 92954, 36440 R91.8(Not Applicable) - Jeff Hagan DatarMD Was Beta Jenn taken within 24 hours: Yes Was Clonidine taken within 24 hours: N/A Last intake: Intake Last Liquid Date 04/25/23 Last Liquid Time 05:30 Last Solid Date 04/24/23 Last Solid Time 15:00 Last Intake: 05:30 Social No alcohol and No tobacco Exam alert, oriented x 3, clear to auscultation bilaterally and regular rate & rhythm Airway Submandibular: within normal limits Cervical ROM: within normal limits Mallampati: Class I Comments: Comments: very poor dentition. patient understands risk History/ROS No significant history except as noted and No significant complaints Pulmonary lung CA - active treatment CV/HEM Hypertension echo 10/2022 reviewed None reported Hepatic None reported GI Gastroesophageal Reflux Disease Metabolic Diabetes Mellitus and Morbid Obesity [facility] [place] Lower Back Pain Neuropsych Anxiety Anesthetic Plan ASA status: 3 Anesthesia: Anesthesia Evaluation and General Risk of > 500 ml blood loss (7ml/kg in children): Yes, adequate IV access and fluids planned Medications/Allergies Home Medications Medication Instructions Recorded Confirmed Last Taken Type metoprolol tartrate 50 mg tablet 50 mg PO BID 06/19/19 04/25/23 04/25/23 History telmisartan 80 mg tablet 80 mg PO DAILY #90 tabs 11/23/22 04/25/23 04/24/23 Rx furosemide 20 mg tablet (Lasix) 20 mg PO BID 12/15/22 04/25/23 04/24/23 History amlodipine 5 mg tablet 5 mg PO DAILY #90 tabs 12/16/22 04/25/23 04/25/23 Rx atorvastatin 10 mg tablet 10 mg PO DAILY 01/12/23 04/25/23 04/24/23 History lorazepam 1 mg tablet 0.5 - 1 mg (0.5 - 1 x 1 mg) PO Q6H 02/08/23 04/25/23 04/24/23 Rx PRN Severe Nausea #30 tabs multivitamin 1 tab PO DAILY 02/14/23 04/25/23 04/24/23 History cetirizine 10 mg capsule (Zyrtec) 10 mg PO TID PRN allergy symptoms 02/21/23 04/25/23 04/24/23 History triamcinolone acetonide 0.1 % 1 applic topical BID #15 grams 03/14/23 04/25/23 Unknown Rx topical cream potassium chloride 10 mEq 10 meq PO BID 04/20/23 04/25/23 04/24/23 History tablet,extended release prochlorperazine maleate 10 mg 10 mg PO Q6H PRN nausea and 04/25/23 04/25/23 Unknown History tablet (Compazine) vomiting Allergies Allergy/AdvReac Type Severity Reaction Status Date / Time paclitaxel Allergy Severe ALGY-Hives Verified 04/25/23 06:09 Current Medications Generic Name Dose Route Start Last Admin Trade Name Freq PRN Reason Stop Dose Admin Sodium Chloride 1,000 mls @ 30 mls/hr 04/25/23 06:00 04/25/23 06:17 Sodium Chloride 0.9% IV 04/26/23 05:59 30 mls/hr .Q24H BABAK Administration PFSH Anesthesia Medical History (Updated 04/25/23 @ 07:15 by Jeff Nelson MD) GERD (gastroesophageal reflux disease) Non-small cell lung cancer Diabetes Hypertension Surgical History (Updated 04/14/23 @ 12:41 by Dalton Lewis MD) Port-A-Cath in place History of bronchoscopy (01/03/23) History of appendectomy Family History Mother Anesthesia complication Cancer Sister Anesthesia complication Cancer Father Cancer Hypertension Denies family history of Diabetes CAD (coronary artery disease) Clotting disorder Dementia Hyperlipidemia Psychiatric illness Chronic kidney disease (CKD) Suicide Bleeding disorder Family history of premature coronary artery disease Lung disease Stroke Social History Smoking and tobacco/nicotine status: tobacco/nicotine user, details unknown smokeless tobacco Smokeless tobacco user: chewing tobacco Smokeless tobacco details: quit 10 years prior Second hand smoke exposure: No Alcohol intake: current Data Anesthesia Cardiac Studies: Echocardiogram 11/07/22
[2023-04-25] MEDS: lidocaine 1% INJ 10 mL (per mL) XX (08:29)
[2023-04-25 09:16] LABS: Apprearance, Bronch Wash Cloudy (CLEAR); Bronch Source Right Lower Lobe; Color, Bronc Wash Red; PATH Referral Yes
--- NOTE | 2023-04-25 09:30 | P.OP_ITS ---
Operative Report Date of procedure: April 25, 2023 Pre-op diagnosis: PET active hilar/perihilar lymph node suspicious for malignancy Procedure done: Dx Bronchoscope w/BAL Bronchoscopy w/ therapeutic aspiration of the tracheobronchial tree (clearance of airway secretions, removal of mucus plugs) EBUS Sampling >=3 nodes Surgeon: Jeff Nelson MD Brief History: Mr. 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 He completed radiation on 03/20/2023. Overall, he tolerated treatment well. -Patient was following up with thoracic surgery for possible resection given stage IIIA. -Restaging PET/CT on 03/28/2023 showed an area of abnormal activity in the posterior lateral right lower lobe with maximum SUV 9.71. Activity was noted to be relatively diffuse throughout the area, with no focal nodule identified. There was increased uptake involving right hilar lymph nodes with SUV max 7.49 and in right paratracheal lymph node, both of which appeared larger compared to the prior study. It was noted that at least some of the activity in the lung was likely to be radiation related. Increasing activity in the hilar and paratracheal lymph nodes was felt to be consistent with either neoplastic involvement or reactive lymph nodes due to chemoradiation. With those findings, he was deemed to be ineligible for surgical resection. -He followed up with oncology. Dr. Lewis recommended endobronchial ultrasound- guided biopsy of lymph nodes to rule out neoplastic involvement. Accordingly, today scheduled for endobronchial ultrasound-guided biopsy of hilar/paratracheal lymph nodes. I have discussed with patient and his about the complications like pneumothorax and bleeding.Majority of times the bleeding is controlled with instillation of cold saline or diluted epinephrine but extremely rarely to bleeding may not be well controlled, which may result in prolonged intubation and possibly bronchial ness placement to protect nonbleeding airway, convalescence in ICU, may even need IR embolization. There is also a very small chance of missing the lesion due to technical factors which may result in repeating the procedure. These are rare possibilities with current software combined with using live ultrasound. Patient verbalized understanding for the indication of the procedure, nature of the procedure, alternatives, complications, benefits and wishes to proceed. Procedure: Dx Bronchoscope w/BAL Bronchoscopy w/ therapeutic aspiration of the tracheobronchial tree (clearance of airway secretions, removal of mucus plugs) EBUS Sampling >=3 nodes Indication: PET active mediastinal/hilar lymph nodes-rule out Malignancy Anesthesia: General anesthesia was used. Please see anesthesiology documentation for full details. Time-Out: Prior to the start of the procedure, the patient's identification, proposed procedure, accurate signed consent, correctly labeled images and records, and need for prophylactic antibiotics were verified by the physician, the nurse, the anesthesiologist and the addiction social worker in the procedure room. Procedural Details: After obtaining informed consent, The procedure was accomplished without difficulty. The patient tolerated the procedure well. Patient preparation: Patient was placed under general anesthesia. An 8.5 ETT was placed for bronchoscopy. Local anesthesia: The stacey in the right and left mainstem bronchi were anesthetized with 1% lidocaine, 3 mL. The larynx and vocal cords were not visualized. The trachea was anatomically normal. The right sided airway was anatomically normal without endobronchial lesions. Copious clear secretions, particularly in right lower lobe, noted which were suctioned right away. The left sided airway was anatomically normal without endobronchial lesions. Scant clear secretions. Therapeutic aspiration of the airways, initial encounter, was performed at the right lower lobe subsegments. The therapeutic bronchoscope was then removed. We communicated with the anesthesia team to ensure proper ventilator settings for endobronchial ultrasound bronchoscope. Next, we turned our attention to linear EBUS staging. An EBUS exam was performed: Station 4R, station 7, station 11 R were enlarged > 5mm and sampled in that order. Other stations were also scanned but there are no > 5 mm visible lymph nodes and thus did not meet criteria for sampling. Level 4R station was identified with the EBUS scope at the lateral RMSB and 3 passes were made using a 19 G Olympus TBNA needle. Level 7 station was identified with the EBUS scope at the medial LMSB/RMSB and 3 passes were made using a 19 G Olympus TBNA needle. Level 11R station was identified with the EBUS scope at the RBI/R hilum and 3 passes were made using a 19 G Olympus TBNA needle Additional samples were taken from lymph node station 7 and collected into RPMI media as ?mediastinal lymph nodes? for consideration of sarcoidosis and lymphoma. Bronchoalveolar lavage was performed after wedging the bronchoscope at the entrance of posterior subsegment of right lower lobe. 30 mL of saline was instilled, fluid return was 10 mL blood-tinged. Bronchoalveolar lavage specimen was sent for cell count and differential, gram stain and culture, cytology. Rapid onsite path evaluation (EDWIN) was not utilized for this case. Following completion of all diagnostic and therapeutic procedures, hemostasis was verified. The scope was removed and procedure concluded. Complications: None.The patient was extubated and brought to the PACU in stable condition. Disposition: Patient can be discharged home in stable condition. Pt and his are aware that I am going to call them to update final biopsy results once available. Related Problem List Diagnoses (1) Hilar lymphadenopathy: (2) Non-small cell lung cancer:
[2023-04-25 10:10] LABS: Total Cells Counted Bronch 200
[2023-04-25 10:12] LABS: Cyto Order Verification Order Verified
--- NOTE | 2023-04-25 10:28 | P.ANESPOST_ITS ---
Inpatient post-anesthesia follow up: Airway intact: Yes Vital signs: Temperature 97.6 F Pulse Rate 64 Respiratory Rate 16 Blood Pressure 148/81 Pulse Oximetry 95 Oxygen Delivery Me thod Room Air Oxygen Flow Rate 0.5 Fraction of Inspir ed Oxygen Hydration adequate: Yes Nausea and vomiting: No Pain level: 0 Mental status: Baseline Additional Comments: Patient reported small area of midline numbness to the top of the tongue. Full motor movement and range of motion in tact. Patient states he is not having difficulty with unintentionally biting the tongue like he has in the past after receiving numbing injections at the dentist. Examined by PROPERTY FIELD ADJUSTER and MDA. Patient advised of likely resolution with time, and to followup with anesthesia if not resolved.
--- NOTE | 2023-04-26 08:49 | ANE.PACU2 ---
Inpatient post-anesthesia follow up: Vital signs: Temperature 97.6 F Pulse Rate 64 Respiratory Rate 16 Blood Pressure 148/81 Pulse Oximetry 95 Oxygen Delivery Me thod Room Air Oxygen Flow Rate 0.5 Fraction of Inspir ed Oxygen Additional Comments: Spoke with patient by phone who states that the numbness in his tongue has resolved and he is feeling well.
[2023-04-26 12:25] LABS: Lymphoma Profile (BBPL) See Report
== END 2023-04-25 10:04 | disposition home or self-care (01) ==
PROVIDERS: Absent Provider Internal Medicine Medical Oncology; Family Provider Surgery; PCP Family Medicine; Visit Provider Internal Medicine Pulmonary Disease
PROC: BB4BZZZ Ultrasonography of Pleura (ICD-10-PCS; principal; 2023-04-25 07:00)
DX: C34.31 Malignant neoplasm of lower lobe, right bronchus or lung (principal); R59.0 Localized enlarged lymph nodes; K21.9 Gastro-esophageal reflux disease without esophagitis; E11.9 Type 2 diabetes mellitus without complications; I10 Essential (primary) hypertension; F17.220 Nicotine dependence, chewing tobacco, uncomplicated; E66.01 Morbid (severe) obesity due to excess calories; Z68.41 Body mass index [BMI] 40.0-44.9, adult
CPT/HCPCS: 31624; 31645; 31653; 80503; 87070; 87205; 88112; 88184; 88185; 88305; 88342; 89050; J1100; J2405; J2704; J2710; J3010; J3490; J7030

== ENCOUNTER 2023-05-11 10:10 | Emergency (ER) | payer BC, MEDICAID, SELFPAY ==
[2023-05-11 10:16] VITALS: BP 157/104; PULSE 90; TEMP 36.9; O2SAT 97; BMI 41.5
--- NOTE | 2023-05-11 10:44 | XRR_ITS ---
PROCEDURE INFORMATION: Exam: XR Chest Exam date and time: 05/11/2023 10:50 AM Age: 62 years old Clinical indication: Other: Dysarthria; Additional info: Dysarthria, worsening lisp, cancer TECHNIQUE: Imaging protocol: Radiologic exam of the chest. Views: 1 view. COMPARISON: CT chest w con* [id number] 03/28/2023 1:52 PM FINDINGS: Tubes, catheters and devices: A Port-A-Cath is noted on the right with the catheter tip projected over the superior vena cava. Lungs: Unremarkable. No consolidation. Pleural spaces: Unremarkable. No pleural effusion. No pneumothorax. Heart/Mediastinum: Unremarkable. No cardiomegaly. Bones/joints: Unremarkable. XR/XR chest 1V portable [id number] IMPRESSION: No acute cardiopulmonary disease.
--- NOTE | 2023-05-11 10:45 | CTR_ITS ---
PROCEDURE INFORMATION: Exam: CT Head Without And With Contrast Exam date and time: 05/11/2023 11:14 AM Age: 62 years old Clinical indication: Altered mental status/memory loss; Patient HX: HX of lung cancer with mets; Additional info: Symptoms of acute stroke, per Dr francisco and randy ulloa TECHNIQUE: Imaging protocol: Computed tomography of the head without and with contrast. Radiation optimization: All CT scans at this facility use at least one of these dose optimization techniques: automated exposure control; mA and/or kV adjustment per patient size (includes targeted exams where dose is matched to clinical indication); or iterative reconstruction. Contrast material: OMNI 350; Contrast volume: 95 ml; Contrast route: INTRAVENOUS (IV); REPORTING DATA: Count of CT and Cardiac NM exams in prior 12 months: This patient has received 7 known CTs and 0 known cardiac nuclear medicine studies in the 12 months prior to the current study. COMPARISON: No relevant prior studies available. RADIATION DOSE METRICS: Total DLP (mGy-cm): 2327 FINDINGS: Brain: There is a tiny enhancing focus in the subcortical region of the right superior frontal gyrus. Suggest MRI of the brain with and without intravenous contrast to further assess. There is no mass effect, midline shift, acute hemorrhage, extra-axial fluid collection or acute lobar infarct. A small area of deep white matter hypodensity in the left frontal lobe is noted, most likely representing chronic ischemia. In the medial aspect of the right middle cranial fossa there is a 25 x 24 x 37 mm extra-axial fluid density collection likely representing an arachnoid cyst. Along the posterior left tentorium there is a 3 x 5 x 5 mm apparent enhancing nodule. Cerebral ventricles: No ventriculomegaly. Paranasal sinuses: Visualized sinuses are unremarkable. No fluid levels. Mastoid air cells: Visualized mastoid air cells are well aerated. Bones/joints: Unremarkable. No acute fracture. Soft tissues: Unremarkable. Other findings: There is frontal volume loss for age, more on the right than on the left. CT/CT head wo/w con [id number] IMPRESSION: Tiny enhancing foci within the right frontal lobe and along the left tentorium. Recommend MRI of the brain with and without intravenous contrast to further assess.
--- NOTE | 2023-05-11 10:47 | ED_ITS ---
HPI - Neuro Symptoms/Deficit 2 General: Chief Complaint: Neuro Symptoms/Deficit Stated Complaint: stroke symptoms Time Seen by Provider: 05/11/23 10:23 History of Present Illness: Patient sober from oncology for worsening lisp. Upon talking the patient last night before he went to bed he noticed possible some left facial droop and a worsening of his list. When he woke up this morning he still had it. When he went to radiation therapy the left facial droop was gone but the worsening lisp was still there. Patient is never had a history of CVA but does have cancer. At the current time patient has no obvious facial droop. And no other complaints. Review of Systems 2 General: Reports: 10 or more systems reviewed and unremarkable except in HPI and below PFSH ED 2 PFSH: Medical History GERD (gastroesophageal reflux disease) Non-small cell lung cancer Diabetes Hypertension Surgical History Port-A-Cath in place History of bronchoscopy (01/03/23) History of appendectomy Family History Mother Anesthesia complication Cancer Sister Anesthesia complication Cancer Father Cancer Hypertension Denies family history of Diabetes CAD (coronary artery disease) Clotting disorder Dementia Hyperlipidemia Psychiatric illness Chronic kidney disease (CKD) Suicide Bleeding disorder Family history of premature coronary artery disease Lung disease Stroke Social History Smoking and tobacco/nicotine status: tobacco/nicotine user, details unknown smokeless tobacco Smokeless tobacco user: chewing tobacco Smokeless tobacco details: quit 10 years prior Second hand smoke exposure: No Alcohol intake: current Physical Exam 2 Const: COMMON NORMALS: no acute distress, average body habitus, patient oriented x3, no limitations, healthy appearing, alert and well nourished HENMT: COMMON NORMALS: normocephalic, atraumatic, hearing grossly normal bilaterally, external ears normal, Normal external nose present, moist oral mucous membranes and oropharynx normal HEAD & SCALP: normocephalic and atraumatic NOSE: Normal external nose present EXTERNAL EAR: Yes external ears normal Eye: COMMON NORMALS: Equal, round and reactive pupils present, EOMs intact bilaterally, conjunctivae normal and no scleral icterus CONJUNCTIVA: Yes conjunctivae normal PUPIL: Yes Equal, round and reactive pupils present Neck/C-Spine: COMMON NORMALS: full ROM, no lymphadenopathy, supple, no meningeal signs, no JVD and Thyroid normal THYROID: Thyroid normal Chest: COMMONS NORMALS: normal inspection of the chest and normal palpation of entire chest wall Resp: COMMON NORMALS: normal respiratory effort, No retractions, No use of accessory muscles and clear to auscultation bilaterally AUSCULTATION: clear to auscultation bilaterally Cardio: COMMON NORMALS: no JVD, regular rate, regular rhythm, S1 normal heart sound present, S2 normal heart sound present, No gallops present (Cardio), No clicks present (Cardio), No murmurs present (Cardio) and No rub (Cardio) R ATE: regular rate RHYTHM: regular rhythm HEART SOUNDS: S1 normal heart sound present and S2 normal heart sound present GI: COMMON NORMALS: Normal to inspection, nondistended, normoactive bowel sounds present, Soft to palpation, non-tender, No hepatosplenomegaly present and no masses PALPATION: Yes Soft to palpation and Yes No hepatosplenomegaly present Neuro: COMMON NORMALS: patient oriented x3 SENSORIUM/ORIENTATION: Yes alert MENINGEAL SIGNS: Yes no meningeal signs OTHER: No focal localizing lateralizing neurodeficits. Course 2 Vital Signs: Vital signs: Vital Signs Temperature 98.4 F 05/11/23 10:16 Pulse Rate 90 05/11/23 10:16 Respiratory Rate 18 05/11/23 11:00 Blood Pressure 157/104 05/11/23 10:16 Pulse Oximetry 98 05/11/23 11:00 Oxygen Delivery Me thod Room Air 05/11/23 10:16 MDM - Neuro Symptoms/Deficit Medical Decision Making Patient presents to the ER because of intermittent left facial droop and slurring of his words. Patient is a cance patient. The patient's facial droop is not there anymore but him and his do say that he is still slurring his words a little more normal. Patient was worked up with CT scans of his head with and without contrast, chest x-ray, and lab work, lab work was essentially benign as well as chest x-ray. CT scan did show possible foci within the right frontal lobe along the left tentorium they did recommend an MRI with and without IV contrast. Patient will be discharged from the ER we will try to arrange this on an outpatient basis through case management. Differential Diagnosis Unlikely carpal tunnel syndrome, convulsions, delirium, subarachnoid hemorrhage, peripheral neuropathy, cerebrovascular accident, multiple sclerosis or transient cerebral ischemia Medical Records I reviewed the patient's medical records. Lab Data I reviewed the patient's lab results. 05/11/23 11:00 05/11/23 11:00 Radiology Impressions Chest X-Ray 05/11/23 10:44 IMPRESSION: No acute cardiopulmonary disease. Head CT 05/11/23 10:45 IMPRESSION: Tiny enhancing foci within the right frontal lobe and along the left tentorium. Recommend MRI of the brain with and without intravenous contrast to further assess. Laboratory Results WBC 10.57 10^3/uL (3.29-11.43) 05/11/23 11:00 RBC 4.70 10^6/uL (3.85-5.65) 05/11/23 11:00 Hgb 14.00 g/dL (11.27-16.99) 05/11/23 11:00 Hct 43.5 % (37-53) 05/11/23 11:00 MCV 92.6 fl (82-101) 05/11/23 11:00 MCH 29.8 pg (27-33) 05/11/23 11:00 MCHC 32.2 g/dL (30-55) 05/11/23 11:00 RDW 16.2 % (12.1-15.1) H 05/11/23 11:00 Plt Count 201 10^3/cmm (157-399) 05/11/23 11:00 MPV 8.2 fL (7.4-10.4) 05/11/23 11:00 Neut % (Auto) 70.2 % 05/11/23 11:00 Lymph % (Auto) 16.7 % 05/11/23 11:00 [place] % (Auto) 11.7 % 05/11/23 11:00 Eos % (Auto) 0.9 % 05/11/23 11:00 Baso % (Auto) 0.3 % 05/11/23 11:00 Neut # (Auto) 7.43 10^3/uL (1.8-7.7) 05/11/23 11:00 Lymph # (Auto) 1.8 10^3/uL (0.8-4.8) 05/11/23 11:00 [place] # (Auto) 1.2 10^3/uL (0.2-0.9) H 05/11/23 11:00 Eos # (Auto) 0.1 10^3/uL (0.0-0.8) 05/11/23 11:00 Baso # (Auto) 0.0 10^3/uL (0.0-0.1) 05/11/23 11:00 Nucleated RBC % (auto) 0 % 05/11/23 11:00 Nucleated RBCs # 0.0 /100WBC 05/11/23 11:00 PT 14.60 SECONDS (12.1-14.9) 05/11/23 11:00 INR 1.10 (0.8-1.2) 05/11/23 11:00 Sodium 139 mmol/L (136-145) 05/11/23 11:00 Potassium 3.6 mmol/L (3.5-5.1) 05/11/23 11:00 Chloride 97 mmol/L (98-107) L 05/11/23 11:00 Carbon Dioxide 25 mmol/L (22-29) 05/11/23 11:00 Anion Gap 20.6 (5-19) H 05/11/23 11:00 BUN 10 mg/dL (8-23) 05/11/23 11:00 Creatinine 0.7 mg/dL (0.7-1.2) 05/11/23 11:00 GFR Calculation 115.0 mL/min (90-130) 05/11/23 11:00 Glucose 104 mg/dL (65-115) 05/11/23 11:00 Calculated Osmolality 287 mOsm/kg (285-295) 05/11/23 11:00 Calcium 9.5 mg/dL (8.5-10.5) 05/11/23 11:00 Magnesium 2.0 mg/dL (1.7-2.3) 05/11/23 11:00 Total Bilirubin 0.9 mg/dL (0.15-1.2) 05/11/23 11:00 AST 22 U/L (0-40) 05/11/23 11:00 ALT 14 U/L (0-41) 05/11/23 11:00 Alkaline Phosphatase 127 U/L (40-130) 05/11/23 11:00 C-Reactive Protein 59.7 mg/L (0.0-4.9) H 05/11/23 11:00 Total Protein 8.0 g/dL (6.6-8.7) 05/11/23 11:00 Albumin 4.2 g/dL (3.5-5.2) 05/11/23 11:00 Globulin 3.8 g/dL (1.3-4.6) 05/11/23 11:00 Urine Color Straw (Yellow) 05/11/23 10:58 Urine Appearance Clear (CLEAR) 05/11/23 10:58 Urine pH 7 (5-7) 05/11/23 10:58 Ur Specific [place] 1.000 (1.005-1.030) L 05/11/23 10:58 Urine Protein Neg (Negative) 05/11/23 10:58 Urine Glucose (UA) Norm (Normal) 05/11/23 10:58 Urine Ketones Negative (Negative) 05/11/23 10:58 Urine Blood Neg (Negative) 05/11/23 10:58 Urine Nitrate Negative (Negative) 05/11/23 10:58 Urine Bilirubin Neg (Negative) 05/11/23 10:58 Urine Urobilinogen Neg mg/dL (Negative) 05/11/23 10:58 Ur Leukocyte Esterase Negative (Negative) 05/11/23 10:58 All radiology interpretation(s) finalized by discharge EKG Data EKG 1: I personally reviewed and interpreted this EKG as follows: EKG interpretation date: 05/11/23 EKG interpretation time: 10:58 Prior EKG tracings: not available for review Interpretation: EKG showed ventricular rate 96 bpm, MI interval 194, QRS duration 107, QTc of 407, sinus rhythm, Discharge Plan Discharge Patient Disposition: Home Clinical Impression: Abnormal computed tomography of head, Slurring of speech Condition: Stable Prescriptions: No Action metoprolol tartrate 50 mg tablet 50 mg PO BID atorvastatin 10 mg tablet 10 mg PO DAILY lorazepam 1 mg tablet 0.5 - 1 mg PO Q6H PRN (Reason: Severe Nausea) Qty: 30 3RF multivitamin Tablet 1 tab PO DAILY furosemide [Lasix] 20 mg tablet See Rx Instructions .ROUTE .COMPLEX Rx Instructions: 20 mg orally ;two tablets q am, one tablet in afternoon Zyrtec 10 mg capsule 10 mg PO BID telmisartan 80 mg tablet 80 mg PO DAILY Qty: 90 3RF amlodipine 5 mg tablet 5 mg PO DAILY Qty: 90 1RF potassium chloride 10 mEq tablet extended release 10 meq PO BID Qty: 60 2RF prochlorperazine maleate [Compazine] 10 mg tablet 10 mg PO Q6H PRN (Reason: nausea and vomiting) acetaminophen 325 mg Capsule 325 mg PO QID Discharge Orders: Discharge ED (Routine); Ordered 05/11/23 Ordered By: Manjit Borges Referrals: Solomon Smith MD [Primary Care Provider] - 1 week Activity Restrictions/Additional Instructions: Your workup was essentially normal except for the CT scan which was mildly abnormal and may have showed some abnormal spots in your brain. They recommend an MRI. We did consult case management to try to arrange this on an outpatient basis. That should be calling you today or tomorrow. Please follow-up with Dr. Lewis and/or your family practice doctor to arrange further evaluation and treatment. Coding Level of Care Code ED Board Attendant for Marcella Romero
--- NOTE | 2023-05-11 10:58 | ECG_ITS ---
[facility] Test Date: 2023-05-11 Pat Name: Syd Gibbs Department: Room: Gender: Male [employer]: : 1960 Requested By: Manjit Borges Order Number: [id number] Ezequiel MD: Jakob Foy M.D. Measurements Intervals [place] Rate: 96 P: 23 TN: 194 QRS: -61 QRSD: 107 T: 11 QT: 353 QTc: 447 Interpretive Statements SINUS RHYTHM POSSIBLE LEFT ATRIAL ENLARGEMENT [-0.1mV P-WAVE IN V1/V2] LEFT ANTERIOR FASCICULAR BLOCK [QRS AXIS <= -45, QR IN I, RS IN II] POSSIBLE ANTERIOR MYOCARDIAL INFARCTION , PROBABLY OLD [30 ms Q WAVE IN V3/V4, OR R < 0.2 mV IN V4] Compared to ECG 10/19/2022 13:32:58 Left anterior fascicular block now present Myocardial infarct finding now present Indeterminate axis no longer present Electronically Signed On 05-11-2023 12:36:54 [employer] TEAM LEADER by Jakob Foy M.D. [id number]
[2023-05-11 11:00] VITALS: RESP 18; O2SAT 98
[2023-05-11 11:02] LABS: Add Urine Microscopic? NO; Charge for UA Resulting for Rev
[2023-05-11 11:07] LABS: Bilirubin Urine Neg (Negative); Blood Urine Neg (Negative); Glucose Urine UA Norm (Normal); Ketones Urine Negative (Negative); Leukocyte Esterase Urine Negative (Negative); Nitrate Urine Negative (Negative); Protein Urine Neg (Negative); Urine Appearance Clear (CLEAR); Urine Color Straw (Yellow); Urobilinogen Urine Neg (Negative); pH Urine 7 (5-7)
[2023-05-11 11:10] LABS: Basophils % 0.3 %; Eosinophils # 0.1 10^3/uL (0.0-0.8); Eosinophils % 0.9 %; Hematocrit 43.5 % (37-53); Lymphocytes # 1.8 10^3/uL (0.8-4.8); Lymphocytes % 16.7 %; Mean Corpuscular HGB Conc 32.2 g/dL (30-55); Mean Corpuscular Hemoglobin 29.8 pg (27-33); Mean Corpuscular Volume 92.6 fl (82-101); Mean Platelet Volume 8.2 fL (7.4-10.4); Monocytes # 1.2 10^3/uL (0.2-0.9); Monocytes % 11.7 %; Neutrophils # 7.43 10^3/uL (1.8-7.7); Neutrophils % 70.2 %; Nucleated Red Blood Cells % 0 %; Platelet Count 201 10^3/cmm (157-399); Red Cell Distribution Width 16.2 % (12.1-15.1); White Blood Count 10.57 10^3/uL (3.29-11.43)
[2023-05-11] MEDS: iohexol 350 mg/mL 500 mL Btl (per mL) IV (11:22)
[2023-05-11 11:35] LABS: Alanine Aminotransferase 14 U/L (0-41); Albumin Level 4.2 g/dL (3.5-5.2); Alkaline Phosphatase 127 U/L (40-130); Anion Gap 20.6 (5-19); Aspartate Amino Transferase 22 U/L (0-40); Blood Urea Nitrogen 10 mg/dL (8-23); C Reactive Protein 59.7 mg/L (0.0-4.9); Calcium 9.5 mg/dL (8.5-10.5); Carbon Dioxide 25 mmol/L (22-29); Chloride 97 mmol/L (98-107); Globulin 3.8 g/dL (1.3-4.6); Glucose 104 mg/dL (65-115); Osmolality Calculated 287 mOsm/kg (285-295); Potassium 3.6 mmol/L (3.5-5.1); Sodium 139 mmol/L (136-145); Total Bilirubin 0.9 mg/dL (0.15-1.2)
[2023-05-11 13:25] VITALS: RESP 16; O2SAT 97
== END 2023-05-11 13:29 | disposition home or self-care (01) ==
PROVIDERS: Emergency Provider Emergency Medicine; PCP Family Medicine
DX: R47.81 Slurred speech (principal); R93.0 Abnormal findings on diagnostic imaging of skull and head, not elsewhere classified; F17.220 Nicotine dependence, chewing tobacco, uncomplicated; Z85.118 Personal history of other malignant neoplasm of bronchus and lung; I10 Essential (primary) hypertension; E11.9 Type 2 diabetes mellitus without complications
CPT/HCPCS: 70470; 71045; 80053; 81003; 83735; 85025; 85610; 86140; 93005; 99285; Q9967

== ENCOUNTER 2023-05-12 11:41 | Oncology outpatient (recurring) (ONCR) | payer BC, MEDICAID, SELFPAY ==
[2023-04-14 08:54] LABS: Basophils % 0.3 %; Eosinophils # 0.3 10^3/uL (0.0-0.8); Eosinophils % 3.5 %; Mean Corpuscular HGB Conc 31.7 g/dL (30-55); Mean Corpuscular Hemoglobin 28.9 pg (27-33); Mean Corpuscular Volume 91.3 fl (82-101); Mean Platelet Volume 8.2 fL (7.4-10.4); Monocytes % 12.5 %; Neutrophils # 4.49 10^3/uL (1.8-7.7); Neutrophils % 57.6 %; Nucleated Red Blood Cells % 0 %; Platelet Count 240 10^3/cmm (157-399); Red Cell Distribution Width 22.3 % (12.1-15.1); White Blood Count 7.78 10^3/uL (3.29-11.43)
[2023-04-14 09:36] LABS: Alanine Aminotransferase 18 U/L (0-41); Albumin Level 3.9 g/dL (3.5-5.2); Alkaline Phosphatase 123 U/L (40-130); Anion Gap 11.9 (5-19); Aspartate Amino Transferase 25 U/L (0-40); Blood Urea Nitrogen 12 mg/dL (8-23); Calcium 9.1 mg/dL (8.5-10.5); Carbon Dioxide 30 mmol/L (22-29); Chloride 100 mmol/L (98-107); Globulin 3.7 g/dL (1.3-4.6); Glucose 85 mg/dL (65-115); Osmolality Calculated 285 mOsm/kg (285-295); Potassium 3.9 mmol/L (3.5-5.1); Sodium 138 mmol/L (136-145); Thyroid Stimulating Hormone 2.31 uIU/mL (0.27-4.20); Total Bilirubin 0.7 mg/dL (0.15-1.2); Total Protein 7.6 g/dL (6.6-8.7)
--- NOTE | 2023-05-04 13:33 | ONCRAD EPV_ITS ---
Radiation Oncology Established Patient Visit Patient: Syd Gibbs [id number] : 1960 Age: 62 Sex: Male Dictated by: Carlton Serra Date of Service: 05/03/2023 Referring Physician(s) : Kimo Philip Diagnosis: st IIIA (T4 N0 M0) adenocarcinoma of right lower lobe C34.90 - Malignant neoplasm of unspecified part of unspecified bronchus or lung, Diagnosed 01/03/2023 (Active) S/P 50 Gy to primary lesion completed 03/20/2023. Now with biopsy proven persistent local disease as well as biopsy proven right hilar and mediastinal sinai progression. He underwent bronch and bx 04/25/2023. Radiotherapy to Date: Course: Lung 2022, Treatment Site: RT Lung50.4Gy, Ref. ID: [id number] [employer]: 6X, Dose/Fx (cGy): 180, #Fx: 28 / 28, Dose Correction (cGy): 0, Total Dose (cGy): 5,040, Start Date: 02/07/2023, End Date: 03/20/2023, Elapsed Days: 41 Current History: See previous consult for initial evaluation. He received preoperative radiation to 50 Gy with chemo and was seen for possible surgical resection of his primary lesion. PET/CT 03/28/2023 Diffuse uptake in RLL with SUV 9.71. New abnormal uptake in right hilar LN, Right para tracheal LN and subcarinal LNs. No distant metastatic disease. Navigational bronchoscopy and biopsy 04/25/2023 metastatic adenocarcinoma at 4R, 7 and 11R sinai stations. Bronch wedged into entrance of posterior segment of RLL and broncho-alveolar lavage performed. This revealed malignant cell groups with features c/w mad diff non-small carcinoma favoring adenocarcinoma. His cough is much better. He is now off of antitussive medications. Some DIA with walking. Low level of energy and not active at home. Transient hemoptysis after bronch which has cleared. Appetite is good. Weight has increased. Vital Signs: Performed on 05/03/2023 2:51 PM BMI - 40.98 kg/m2 (high), Height - 70 in, Weight - 285.6 lbs, Temperature - 98.1 f, Pulse - 85 /min, Respiration - 16 /min, O2 Sat - 99 %, Pain - 0, Fatigue - 0 and BP - 154/ 101 mm(hg)(high). Physical Exam: Pleasant obese in NAD. No adenopathy. Lungs clear. Minimal pedal edema. Performance Status: 1 Lab: None pending. Pathology: Primary, c34.90 - malignant neoplasm of unspecified part of unspecified bronchus or lung, Diagnosed 01/03/2023 (active). Imaging: See HPI Impression: St IIIA(T4 N0 M0) adenocarcinoma of RLL s/p 50 Gy and chemo to primary disease. He now has persistent local disease and new progression in right hilar and mediastinal LNS. I favor additional treatment to primary site limited to 40 to 45 Gy and 60 to 66 Gy to the right hilar and mediastinal sites of sinai involvement over 6 to 6 ??? weeks of treatment. Final dose choices will be dependent on DVH analysis. Plan on using IMRT with ???dose painting??? to relevant target doses with some form of concurrent chemo as directed by Dr. Lewis. He was noted to be intolerant of Taxol during his first course of treatment. Signed by: 05/04/2023 1:32:46 PM <<Signature on File>> Time spent with patient: CPT Code: CPT Code:
[2023-05-11 09:34] VITALS: BP 142/100; PULSE 92; RESP 18; TEMP 37; O2SAT 97
[2023-05-11 09:52] LABS: Basophils % 0.2 %; Eosinophils # 0.1 10^3/uL (0.0-0.8); Eosinophils % 0.9 %; Lymphocytes # 1.1 10^3/uL (0.8-4.8); Mean Corpuscular HGB Conc 32.7 g/dL (30-55); Mean Corpuscular Hemoglobin 29.8 pg (27-33); Mean Corpuscular Volume 91.3 fl (82-101); Mean Platelet Volume 8.6 fL (7.4-10.4); Monocytes # 1.2 10^3/uL (0.2-0.9); Monocytes % 12.1 %; Neutrophils # 7.07 10^3/uL (1.8-7.7); Neutrophils % 74.5 %; Nucleated Red Blood Cells % 0 %; Platelet Count 199 10^3/cmm (157-399); Red Blood Count 4.49 10^6/uL (3.85-5.65); Red Cell Distribution Width 16.1 % (12.1-15.1)
[2023-05-11 10:14] LABS: Alanine Aminotransferase 14 U/L (0-41); Albumin Level 4.1 g/dL (3.5-5.2); Alkaline Phosphatase 121 U/L (40-130); Anion Gap 15.8 (5-19); Aspartate Amino Transferase 24 U/L (0-40); Blood Urea Nitrogen 10 mg/dL (8-23); Calcium 9.6 mg/dL (8.5-10.5); Carbon Dioxide 28 mmol/L (22-29); Chloride 96 mmol/L (98-107); Creatinine Clr Calc Pharmacy 150.4502; Globulin 3.5 g/dL (1.3-4.6); Glucose 103 mg/dL (65-115); Osmolality Calculated 281 mOsm/kg (285-295); Potassium 3.8 mmol/L (3.5-5.1); Sodium 136 mmol/L (136-145); Total Bilirubin 0.7 mg/dL (0.15-1.2); Total Protein 7.6 g/dL (6.6-8.7)
== END 2023-05-14 23:59 | disposition home or self-care (01) ==
PROVIDERS: Internal Medicine Medical Oncology; PCP Family Medicine; Visit Provider Specialist
DX: Z51.0 Encounter for antineoplastic radiation therapy (principal); C34.31 Malignant neoplasm of lower lobe, right bronchus or lung; Z53.9 Procedure and treatment not carried out, unspecified reason
CPT/HCPCS: 36591; 77300; 77301; 77334; 77338; 77386; 77470; 80053; 84443; 85025; 99024; J1642

== ENCOUNTER 2023-05-12 11:45 | Outpatient (CLI) | payer BC, MEDICAID, SELFPAY ==
--- NOTE | 2023-05-12 12:30 | MR_ITS ---
WS: [id number] MRI HEAD WITH CONTRAST TECHNIQUE: Sagittal T1, T2 axial, T2 axial FLAIR, axial susceptibility weighted imaging, axial diffus ion weighted images, and coronal T2 images were obtained. Pre and post-T1 axial and post T1 coronal i mages. ADC and FSPGR images. CLINICAL INFORMATION: lung cancer; abnormal CT of head COMPARISON: CT 05/11/2023 FINDINGS: Multiple scattered punctate foci of restricted diffusion involving both cerebral hemispheres and LEFT cerebellum. Largest areas of restricted diffusion involving the LEFT frontoparietal junction and RIG HT posterior frontal lobe measuring 6 to 7 mm. Findings suspicious for multiple small acute to subacu te infarcts. A few of these demonstrate a tiny amount of enhancement. Metastatic disease not entirely excluded and recommend interval follow-up to assess evolution. Mild cortical edema associated with t he larger areas of suspected ischemia. No significant mass effect or midline shift. RIGHT middle cranial fossa arachnoid cyst measuring 3.7 x 2.2 cm. Mild small vessel changes. Moderate parenchymal volume loss. Normal posterior fossa. Normal vascular flow voids at the skull base. Paran keshav sinuses and mastoid air cells are well aerated. Normal posterior nasopharynx. No hemosiderin on susceptibly weighted images. Normal optic chiasm and pituitary infundibulum. Normal dural venous sinu ses. IMPRESSION: 1. Multiple scattered punctate foci of restricted diffusion involving both hemispheres and LEFT cere bellum most compatible with tiny punctate foci of acute to subacute ischemia. A few of these areas de monstrate tiny amount of enhancement and metastatic disease not entirely excluded. Recommend 6 to 8-w [place] interval follow-up to assess evolution 2. Consider central embolic etiology considering multiple vascular territories and posterior fossa i nvolvement. 3. Mild small vessel changes. Mild to moderate parenchymal volume loss. 4. Benign RIGHT middle cranial fossa arachnoid cyst. 5. No significant mass effect or midline shift. 6. Minimal edema associated with the larger suspected areas of ischemia.
[2023-05-12] MEDS: gadobenate dimeglumine 20 mL vial IV (13:03)
== END 2023-05-12 11:46 | disposition home or self-care (01) ==
LOC: RAD 11:45
PROVIDERS: PCP Family Medicine; Visit Provider Internal Medicine Medical Oncology
DX: C34.91 Malignant neoplasm of unspecified part of right bronchus or lung (principal); R94.02 Abnormal brain scan; R93.0 Abnormal findings on diagnostic imaging of skull and head, not elsewhere classified; I67.89 Other cerebrovascular disease; G93.0 Cerebral cysts
CPT/HCPCS: 70553; A9577

== ENCOUNTER 2023-05-25 08:48 | Oncology outpatient (recurring) (ONCR) | payer BC, MEDICAID, SELFPAY ==
[2023-05-16 11:50] VITALS: BP 156/99; PULSE 80; RESP 16; TEMP 37.1
[2023-05-16 12:01] LABS: Basophils % 0.3 %; Eosinophils % 0.5 %; Hematocrit 40.5 % (37-53); Lymphocytes # 0.9 10^3/uL (0.8-4.8); Lymphocytes % 14.9 %; Mean Corpuscular HGB Conc 32.8 g/dL (30-55); Mean Corpuscular Volume 91.4 fl (82-101); Mean Platelet Volume 8.6 fL (7.4-10.4); Monocytes # 1.3 10^3/uL (0.2-0.9); Monocytes % 21.5 %; Neutrophils % 62.5 %; Nucleated Red Blood Cells % 0 %; Platelet Count 161 10^3/cmm (157-399); Red Blood Count 4.43 10^6/uL (3.85-5.65); Red Cell Distribution Width 15.1 % (12.1-15.1); White Blood Count 5.92 10^3/uL (3.29-11.43)
[2023-05-16 12:22] LABS: Alanine Aminotransferase 16 U/L (0-41); Albumin Level 3.7 g/dL (3.5-5.2); Alkaline Phosphatase 105 U/L (40-130); Anion Gap 16.4 (5-19); Aspartate Amino Transferase 32 U/L (0-40); Blood Urea Nitrogen 7 mg/dL (8-23); Calcium 8.6 mg/dL (8.5-10.5); Carbon Dioxide 27 mmol/L (22-29); Chloride 97 mmol/L (98-107); Globulin 3.8 g/dL (1.3-4.6); Glucose 88 mg/dL (65-115); Osmolality Calculated 281 mOsm/kg (285-295); Potassium 3.4 mmol/L (3.5-5.1); Sodium 137 mmol/L (136-145); Total Bilirubin 0.7 mg/dL (0.15-1.2); Total Protein 7.5 g/dL (6.6-8.7)
--- NOTE | 2023-05-16 13:17 | ONCRAD TMN_ITS ---
Radiation Oncology Weekly Treatment Management Patient: Sai Mendoza MR#: [id number] : 1960> Attending Physician: Carlton Serra Date of Service: 05/16/2023 Referring Physician(s) : Kimo Philip Diagnosis: C34.90 - Malignant neoplasm of unspecified part of unspecified bronchus or lung, Diagnosed 01/03/2023 (Active) Radiotherapy to date: Course: [id number], Treatment Site: RT Lung after, Ref. ID: [id number], Energy: 6X, Dose/Fx (cGy): 200, #Fx: , Dose Correction (cGy): 0, Total Dose (cGy): 600, Start Date: 05/11/2023, Elapsed Days: 5 Reason for visit: The patient is being seen today as part of their regularly scheduled weekly on treatment visits to assess for acute toxicities from radiotherapy. Review of Systems: Chemo began last week. Now with some nausea and gassiness. Peristent non-productive cough. He had a lisp and MRI brain just done. Eating ok. Some SOB when gassy. Vital Signs: Performed on 05/16/2023 10:33 AM BMI - 39.545 kg/m2 (high), Height - 70 in, Weight - 275.6 lbs, Temperature - 98 f, Pulse - 89 /min, Respiration - 18 /min, O2 Sat - 95 % (low), Pain - 0, Fatigue - 0 and BP - 146/ 94 mm(hg)(high). Physical Exam: Imaging: Radiation therapy imaging related to accurate target localization (i.e. KV, MV and CBCT) was reviewed. Appropriate changes, if any, were made to ensure treatment accuracy. Plan: Add simethicone containing AA. Add anti emetic from med onc. Add OTC cough suppression. Signed by: Carlton Serra 05/16/2023 1:16:07 PM Telemedicine Consent Patient seen today via Telemedicine by agreement and consent of patient. Telemedicine technology used during the visit include audio and, as available, review of images. This patient encounter is appropriate and reasonable under the circumstances given the patient???s particular presentation at this time. The patient has been advised of the potential risks and limitations of this mode of treatment (including but not limited to the absence of in-person examination) and has agreed to be treated in a remote fashion in spite of them. Any and all of the patient???s/patient???s family???s questions on this issue have been answered and I have made no promises or guarantees to the patient. The patient has also been advised to contact this office for worsening conditions or problems, and seek emergency medical treatment and/or call 911 if the patient deems either necessary.
--- NOTE | 2023-05-23 09:38 | ONCRAD TMN_ITS ---
Radiation Oncology Weekly Treatment Management Patient: Syd Gibbs MR#: [id number] : 1960> Attending Physician: Dr. Collette Sung Date of Service: 05/23/2023 Fractions: 8 of 30 radiation only Referring Physician(s) : Kimo Philip Diagnosis: C34.90 - Malignant neoplasm of unspecified part of unspecified bronchus or lung, Diagnosed 01/03/2023 (Active) Radiotherapy to date: Course: [id number], Treatment Site: RT Lung after, Ref. ID: [id number], Energy: 6X, Dose/Fx (cGy): 200, #Fx: , Dose Correction (cGy): 0, Total Dose (cGy): 1,600, Start Date: 05/11/2023, Elapsed Days: 12 Reason for visit: The patient is being seen today as part of their regularly scheduled weekly on treatment visits to assess for acute toxicities from radiotherapy. Review of Systems: Patient has had some nausea this morning. He has not eaten any breakfast. He is also quite fatigued this morning. Vital Signs: Performed on 05/23/2023 8:58 AM BMI - 38.454 kg/m2 (high), Height - 70 in, Weight - 268 lbs, Temperature - 97.8 f, Pulse - 102 /min (high), Respiration - 16 /min, O2 Sat - 97 %, Pain - 0, Fatigue - 4 and BP - 135/ 82 mm(hg). Physical Exam: On examination cardiovascular was regular in rate and rhythm without murmurs. No skin changes noted Imaging: Radiation therapy imaging related to accurate target localization (i.e. KV, MV and CBCT) was reviewed. Appropriate changes, if any, were made to ensure treatment accuracy. Plan: Will continue with his treatments as planned. I recommend he continue to take his nausea medicine. He will go ahead and get something to eat this morning which she had not done yet this morning. They are going to move to a different hotel as he did not sleep well last night. Signed by: Dr. Collette Sung 05/23/2023 9:37:08 AM
== END 2023-06-05 23:59 | disposition home or self-care (01) ==
PROVIDERS: Internal Medicine; PCP Family Medicine; Visit Provider Radiology Radiation Oncology
DX: Z51.0 Encounter for antineoplastic radiation therapy (principal); C34.31 Malignant neoplasm of lower lobe, right bronchus or lung
CPT/HCPCS: 77336; 77386; 80053; 85025; 99024; J1642

== ENCOUNTER 2023-05-26 14:15 | Inpatient (IN) | payer BC, MEDICAID, SELFPAY ==
[2023-05-26] VITALS (36 sets, daily range): BP systolic 115–177; BP diastolic 78–120; PULSE 95–118; RESP 18–36; TEMP 36.6; O2SAT 87–98
--- NOTE | 2023-05-26 14:44 | PM.HP ---
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 As per the who is at bedside since last Monday which was 9 days ago patient has had slurred speech, drooping of the left side of the face, increasing weakness of left half of his body with episodes of choking on and off while having his meals. As per his meals have gotten slower and usually she has been trying to give him more liquid diet for last 9 days. Patient has been getting slightly more confused and less responsive with less communication for last few days. Patient was able to walk with slower gait while being unsteady on his feet daily yesterday. Today he was not able to get up at all, was not responding hence she called the EMS and patient was taken to [facility] Patient has been transferred from [place] to [facility] as per patient's 's request. Blood work done at [facility] shows a white count 16.6, hemoglobin of 14.1, predominantly left shift, INR 1.3, sodium 140, potassium of 3, creatinine of 1.24, BUN of 13, calcium of 8.8, TSH of 0.54 with T4 of 12.5, ABG showing a pH of 7.5, pCO2 31 with pO2 of 58, negative for alcohol or urine drug screen only positive for opiates, UA negative for nitrite and leukoesterase with CTA head and neck showing low-density consistent with subacute infarctions of lateral frontal lobe and left parietal lobe Review of Systems General: Reports: ROS unobtainable due to medical condition and ROS unobtainable due to mental status Medications/Allergies Home Medications Medication Instructions Recorded Confirmed Last Taken Type metoprolol tartrate 50 mg tablet 50 mg PO BID 06/19/19 05/16/23 05/11/23 History telmisartan 80 mg tablet 80 mg PO DAILY #90 tabs 11/23/22 05/16/23 05/11/23 Rx furosemide 20 mg tablet (Lasix) See Rx Instructions .Route .COMPLEX 12/15/22 05/16/23 05/11/23 History amlodipine 5 mg tablet 5 mg PO DAILY #90 tabs 12/16/22 05/16/23 05/11/23 Rx atorvastatin 10 mg tablet 10 mg PO DAILY 01/12/23 05/16/23 05/11/23 History multivitamin 1 tab PO DAILY 02/14/23 05/16/23 05/11/23 History cetirizine 10 mg capsule (Zyrtec) 10 mg PO BID 02/21/23 05/16/23 05/11/23 History prochlorperazine maleate 10 mg 10 mg PO Q6H PRN nausea and 04/25/23 05/16/23 Unknown History tablet (Compazine) vomiting acetaminophen 325 mg capsule 325 mg PO QID 05/11/23 05/16/23 05/11/23 History apixaban 5 mg (74 tabs) tablets in See Rx Instructions PO PER PKG DIR 05/16/23 05/16/23 Unknown Rx a dose pack (Eliqu72xuan DVT-PE Treat #74 ea 30D Start) benzonatate 200 mg capsule 200 mg PO TID #90 caps 05/16/23 05/16/23 Unknown Rx lorazepam 1 mg tablet 0.5 - 1 mg (0.5 - 1 x 1 mg) PO Q6H 05/17/23 Unknown Rx PRN Severe Nausea #30 tabs potassium chloride 10 mEq 10 meq PO BID #60 tabs 05/17/23 Unknown Rx tablet,extended release codeine 7.5 mg-guaifenesin 225 5 ml PO Q6H PRN allergy symptoms 05/26/23 Unknown Rx mg/5 mL oral liquid #473 mL Allergies Allergy/AdvReac Type Severity Reaction Status Date / Time paclitaxel Allergy Severe ALGY-Hives Verified 05/11/23 10:21 PFSH Acute PFSH: Medical History (Updated 05/26/23 @ 15:41 by Tung Mcbride MD) Acute thromboembolic cerebrovascular accident GERD (gastroesophageal reflux disease) Non-small cell lung cancer Diabetes Hypertension Surgical History Port-A-Cath in place History of bronchoscopy (08/22/23) History of appendectomy Family History Mother Anesthesia complication Cancer Sister Anesthesia complication Cancer Father Cancer Hypertension Denies family history of Diabetes CAD (coronary artery disease) Clotting disorder Dementia Hyperlipidemia Psychiatric illness Chronic kidney disease (CKD) Suicide Bleeding disorder Family history of premature coronary artery disease Lung disease Stroke Social History (Updated 05/16/23 @ 12:45 by Holden Oneil) Smoking and tobacco/nicotine status: former use of tobacco/nicotine Quit status (tobacco/nicotine): has quit using Year quit tobacco: 2007 Former quit date comment: tobaccco use overall 30 years Second hand smoke exposure: No Alcohol intake: current Physical Exam Narrative: General: No acute distress, right preferential gaze, not able to follow commands though it seems he is able to understand words on and off HEENT: PERRLA, pupils bilaterally equal and reactive Chest: Normal vesicular breath sounds, no added sounds, equal good air entry bilaterally CVS: S1-S2 regular, no murmurs, no tachycardia, no gallops, no rubs Abdomen: Soft, nontender, no organomegaly, bowel sounds present Neuro: Facial droop to the left side, left upper limb 1/5, right side upper limb and lower limb along with left lower limb 3/5, plantars bilaterally upgoing A&P Assessment and plan (1) Sepsis: Ruled out on admission because of tachycardia, leukocytosis, end-organ damage with SUDEEP. Source of infection most likely pneumonia though further workup is needed. Check blood culture, MRSA swab, urinalysis, urine culture. Will plan for CT chest. Empirically for now start patient on IV vancomycin, IV Zosyn, IV azithromycin. Keep mean artery pressure 65. Start on D5 NS at 75 cc/h. (2) Acute thromboembolic cerebrovascular accident: As per MRI done on 05/12. Appreciate CTA head and neck done in [place]. Check echocardiogram with bubble study. Keep NPO. Speech therapy/PT/OT evaluation. Advance diet accordingly. Check A1c, lipid panel. Check troponin cycle Switch to full dose Lovenox 1 mg/kg body weight every 12 hourly. (3) Adenocarcinoma of lower lobe of right lung: Follows up with oncology as an outpatient. On radiation therapy. (4) Hypertension: Patient has had a stroke for over 9 days ago. Goal blood pressure less than 140/90 mmHg. IV hydralazine 10 mg every 6 hours as needed for systolic blood pressure of more than 160 mmHg, IV metoprolol 5 mg every 4 hours as needed for heart rate of more than 110 bpm. Withheld with systolic blood pressure of less than 100 mmHg. (5) Diabetes: Check A1c. Not on any antidiabetic medication as an outpatient. Will start on insulin sliding scale as per A1c. Plan CODE STATUS: Discussed in detail with patient's at bedside. is the DPOA. Full code. If needed she will be okay with feeding tube. Full dose Lovenox will suffice for DVT prophylaxis N.p.o. Protonix for PUD prophylaxis Attestations Medical Necessity Statement*: Admission for more than 2 midnights for management of sepsis most likely in setting of aspiration pneumonitis in a patient with thromboembolic stroke, lung cancer on radiation therapy Diagnoses Sepsis A41.9 Acute thromboembolic cerebrovascular accident I63.9 Adenocarcinoma of lower lobe of right lung C34.31 Hypertension I10 Diabetes E11.9
--- NOTE | 2023-05-26 14:50 | ECG_ITS ---
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 Measurements Intervals [place] Rate: 109 P: 15 [place]: 180 QRS: -46 QRSD: 105 T: 1 QT: 370 QTc: 499 Interpretive Statements SINUS TACHYCARDIA POSSIBLE LEFT ATRIAL ENLARGEMENT [-0.1mV P-WAVE IN V1/V2] LOW QRS VOLTAGE IN PRECORDIAL LEADS [QRS DEFLECTION < 1.0 mV IN CHEST LEADS] LEFT ANTERIOR FASCICULAR BLOCK [QRS AXIS <= -45, QR IN I, RS IN II] POSSIBLE ANTERIOR MYOCARDIAL INFARCTION , OF INDETERMINATE AGE [30 ms Q WAVE IN V3/V4, OR R < 0.2 mV IN V4] Compared to ECG 05/11/2023 10:58:09 Low QRS voltage now present Sinus rhythm no longer present Myocardial infarct finding still present Electronically Signed On 05-26-2023 18:13:16 RIDES ATTENDANT by Lizzie Heard M.D. [id number]
--- NOTE | 2023-05-26 15:27 | PC.NURSE ---
Arrived from [place], non verbal left side flaccid, at bedside
[2023-05-26] MEDS: dextrose 5%-sod chloride 0.9% 1,000 ML 75 ML IV (16:09)
[2023-05-26] MEDS: enoxaparin 120 mg/0.8 mL Syringe SUBCUT (16:09)
[2023-05-26] MEDS: pantoprazole 40 mg SDV IVP (16:09)
[2023-05-26 16:12] LABS: Basophils % 0.1 %; Lymphocytes # 0.5 10^3/uL (0.8-4.8); Mean Corpuscular HGB Conc 32.4 g/dL (30-55); Mean Corpuscular Hemoglobin 29.9 pg (27-33); Mean Corpuscular Volume 92.1 fl (82-101); Mean Platelet Volume 9.1 fL (7.4-10.4); Monocytes % 11.9 %; Neutrophils # 14.37 10^3/uL (1.8-7.7); Neutrophils % 84.5 %; Nucleated Red Blood Cells % 0 %; Platelet Count 133 10^3/cmm (157-399); Red Blood Count 4.45 10^6/uL (3.85-5.65); Red Cell Distribution Width 14.6 % (12.1-15.1)
[2023-05-26 16:28] LABS: Lactic Sepsis W/Reflex 1.6 mmol/L (0.5-2.2)
[2023-05-26 16:46] LABS: Troponin(5th) Baseline 410 ng/L (0-15)
[2023-05-26 16:50] LABS: Procalcitonin 0.23 ng/mL (0-0.5); Thyroid Stimulating Hormone 0.34 uIU/mL (0.27-4.20); Vitamin B12 1083 pg/mL (232-1245)
[2023-05-26 17:02] LABS: Alanine Aminotransferase 22 U/L (0-41); Albumin Level 3.6 g/dL (3.5-5.2); Alkaline Phosphatase 89 U/L (40-130); Anion Gap 18.9 (5-19); Aspartate Amino Transferase 51 U/L (0-40); Blood Urea Nitrogen 17 mg/dL (8-23); Calcium 8.5 mg/dL (8.5-10.5); Carbon Dioxide 23 mmol/L (22-29); Chloride 102 mmol/L (98-107); Globulin 3.4 g/dL (1.3-4.6); Glomerular Filtration Rate 61.8 mL/min (90-130); Glucose 106 mg/dL (65-115); Iron 15 ug/dL (59-158); Osmolality Calculated 294 mOsm/kg (285-295); Percent Saturation 8.6 % (20-50); Sodium 141 mmol/L (136-145); Total Bilirubin 1.2 mg/dL (0.15-1.2); Total Iron Binding Capacity 174 mcg/dl; Unsaturated Iron Binding 159 ug/dL (112-347)
[2023-05-26 17:04] LABS: Potassium 2.9 mmol/L (3.5-5.1)
--- NOTE | 2023-05-26 17:27 | CTR_ITS ---
PROCEDURE INFORMATION: Exam: CT Chest Without Contrast; Diagnostic Exam date and time: 05/26/2023 8:16 PM Age: 62 years old Clinical indication: Prior surgery; Surgery date: 6+ months; Surgery type: Chest port; Patient HX: Cough with wbc of 17k and base trop of 410. Patient inpt transfer for acute CVA. Patient has left side deficit with loss of swallowing. Unable to follow breathing instructions. ; Additional info: Pna TECHNIQUE: Imaging protocol: Diagnostic computed tomography of the chest without contrast. Radiation optimization: All CT scans at this facility use at least one of these dose optimization techniques: automated exposure control; mA and/or kV adjustment per patient size (includes targeted exams where dose is matched to clinical indication); or iterative reconstruction. COMPARISON: CT chest w con* [id number] 28/03/2023 13:52 RADIATION DOSE METRICS: Total DLP (mGy-cm): 424.11 FINDINGS: Limitations: Significant streak artifact in the lower chest and upper abdomen due to the patient's arms which were left at the side. Lungs: Right upper lobe calcified granuloma. Mild scattered centrilobular opacities in the peripheral upper and lower lobes. Linear and airspace opacities in the right lung base. Mild dependent atelectasis in both lungs. Pleural spaces: Unremarkable. No pneumothorax. No pleural effusion. Heart: No coronary artery calcifications. No cardiomegaly. No pericardial effusion. Lymph nodes: Prominent mediastinal and hilar lymph nodes are most likely reactive. Vasculature: Right Infusaport with tip in the distal SVC. Bones/joints: Degenerative changes of the thoracic spine. No acute fracture. Soft tissues: Unremarkable. CT/CT chest wo con [id number] IMPRESSION: 1. Mild centrilobular opacities in the peripheral lungs is most likely infectious bronchiolitis. 2. Opacity in the right lung base could represent atelectasis and scarring from previous pneumonia. Active pneumonia is not entirely excluded.
[2023-05-26] MEDS: lidocaine 1% 5 ML in potassium chloride premix 100 ML 26.25 ML IV ×2 (17:53→21:44)
[2023-05-26] MEDS: vancomycin 1,250 MG/250 ML PIGGYBACK 250 MG IV (17:57)
[2023-05-26] MEDS: piperacillin-tazobactam 3.375 GM in sodium chloride 0.9% (plus) 50 ML IV (17:58)
--- NOTE | 2023-05-26 18:01 | ECG_ITS ---
[facility] Test Date: 2023-05-26 Pat Name: Syd Gibbs Department: Room: ICU12 Gender: Male Lathmaker: : 1960 Requested By: Tung Mcbride Order Number: [id number] Ezequiel MD: Lizzie Heard M.D. Measurements Intervals [place] Rate: 110 P: 10 NC: 187 QRS: -49 QRSD: 103 T: 6 QT: 427 QTc: 578 Interpretive Statements SINUS TACHYCARDIA WITH OCCASIONAL SUPRAVENTRICULAR PREMATURE COMPLEXES LOW QRS VOLTAGE IN PRECORDIAL LEADS [QRS DEFLECTION < 1.0 mV IN CHEST LEADS] LEFT ANTERIOR FASCICULAR BLOCK [QRS AXIS <= -45, QR IN I, RS IN II] POSSIBLE ANTERIOR MYOCARDIAL INFARCTION , PROBABLY OLD [30 ms Q WAVE IN V3/V4, OR R < 0.2 mV IN V4] Compared to ECG 05/26/2023 16:50:28 No significant changes Electronically Signed On 05-26-2023 18:14:05 BUILDING WRECKER by Lizzie Heard M.D. [id number]
[2023-05-26 19:25] LABS: Troponin 5 2HR Delta 15.4 ABS# (0-10)
[2023-05-26 19:26] LABS: Troponin 5 2HR 425.4 ng/L (0-15)
[2023-05-26 19:55] LABS: Urine Color Yellow (Yellow)
[2023-05-26 19:56] LABS: Add Urine Microscopic? YES; Bilirubin Urine 1+ (Negative); Blood Urine 3+ (Negative); Glucose Urine UA Norm (Normal); Ketones Urine 1+ (Negative); Leukocyte Esterase Urine Trace (Negative); Nitrate Urine Negative (Negative); Protein Urine 3+ (Negative); RBC Urine 25-40 /hpf (0-2); Specific Gravity, Urine 1.015 (1.005-1.030); Urine Appearance Turbid (CLEAR); Urobilinogen Urine 1 mg/dL (Negative); WBC Urine 55-80 /hpf (0-5); pH Urine 5 (5-7)
[2023-05-26 19:57] LABS: Add Urine Culture? Yes; Amorphous Sediment Urine 1+ /hpf; Bacteria Urine 1+ /hpf; Fine Granular Casts Urine 0-4 /lpf; Hyaline Casts Urine 0-4 /lpf; Mucus Urine 1+ /hpf
[2023-05-26 21:20] LABS: Adenovirus Not Detected (NOT DETECT); Chlamydia Pneumoniae Not Detected (NOT DETECT); Coronavirus 229E,HKU1,NL63,OC4 Not Detected (NOT DETECT); Human Metapneumovirus Not Detected (NOT DETECT); Human Rhinovirus/Enterovirus Not Detected (NOT DETECT); Influenza A Not Detected (NOT DETECT); Influenza A H1 Not Detected (NOT DETECT); Influenza A H1-2009 Not Detected (NOT DETECT); Influenza A H3 Not Detected (NOT DETECT); Influenza B Not Detected (NOT DETECT); Mycoplasma Pneumoniae Not Detected (NOT DETECT); Parainfluenza Virus Type 1 Not Detected (NOT DETECT); Parainfluenza Virus Type 2 Not Detected (NOT DETECT); Parainfluenza Virus Type 3 Not Detected (NOT DETECT); Parainfluenza Virus Type 4 Not Detected (NOT DETECT); Respiratory Syncytial Virus A Not Detected (NOT DETECT); Respiratory Syncytial Virus B Not Detected (NOT DETECT); SARS-COV-2 Not Detected (NOT DETECT)
[2023-05-26 22:32] LABS: Troponin 5 6HR 571.8 ng/L (0-15); Troponin 5 6HR Delta 161.8 ng/L (0-12)
[2023-05-27] VITALS (35 sets, daily range): BP systolic 122–178; BP diastolic 79–121; PULSE 93–113; RESP 20–36; TEMP 36.6–38.4; O2SAT 92–100; BMI 38.1
[2023-05-27] MEDS: piperacillin-tazobactam 3.375 GM in sodium chloride 0.9% (plus) 50 ML IV ×3 (01:34→22:59)
[2023-05-27 04:35] LABS: Basophils % 0.2 %; Hematocrit 37.3 % (37-53); Lymphocytes # 0.4 10^3/uL (0.8-4.8); Lymphocytes % 2.9 %; Mean Corpuscular HGB Conc 32.7 g/dL (30-55); Mean Corpuscular Hemoglobin 29.9 pg (27-33); Mean Corpuscular Volume 91.4 fl (82-101); Monocytes # 1.7 10^3/uL (0.2-0.9); Neutrophils # 10.85 10^3/uL (1.8-7.7); Neutrophils % 83.5 %; Nucleated Red Blood Cells % 0 %; Platelet Count 100 10^3/cmm (157-399); Red Blood Count 4.08 10^6/uL (3.85-5.65); Red Cell Distribution Width 14.4 % (12.1-15.1); White Blood Count 12.99 10^3/uL (3.29-11.43)
[2023-05-27] MEDS: enoxaparin 120 mg/0.8 mL Syringe SUBCUT ×2 (04:49→17:24)
[2023-05-27 04:59] LABS: Estmated Average Glucose 97
[2023-05-27 05:01] LABS: Chol HDL Ratio 3.29 mg/dL (1.0-5.00); Cholesterol 135 mg/dL (0-200); HDL Cholesterol 41 mg/dL (60-100); LDL Cholesterol Calculated 73 mg/dL (50-129); LDL HDL Ratio 1.78 RATIO (0.00-3.22); Triglycerides 104 mg/dL (0-150)
[2023-05-27 05:05] LABS: Alanine Aminotransferase 25 U/L (0-41); Albumin Level 3.2 g/dL (3.5-5.2); Alkaline Phosphatase 79 U/L (40-130); Anion Gap 14.2 (5-19); Aspartate Amino Transferase 59 U/L (0-40); Blood Urea Nitrogen 17 mg/dL (8-23); Calcium 8.5 mg/dL (8.5-10.5); Carbon Dioxide 25 mmol/L (22-29); Chloride 108 mmol/L (98-107); Globulin 3.5 g/dL (1.3-4.6); Glomerular Filtration Rate 76.2 mL/min (90-130); Glucose 120 mg/dL (65-115); Magnesium 1.9 mg/dL (1.7-2.3); Osmolality Calculated 301 mOsm/kg (285-295); Potassium 3.2 mmol/L (3.5-5.1); Sodium 144 mmol/L (136-145); Total Bilirubin 1.1 mg/dL (0.15-1.2); Total Protein 6.7 g/dL (6.6-8.7)
[2023-05-27] MEDS: dextrose 5%-sod chloride 0.9% 1,000 ML 75 ML IV ×2 (05:21→20:41)
--- NOTE | 2023-05-27 06:00 | USCV_ITS ---
Syd Gibbs Age: 62 Gender: M : 1960 Exam Date: 05/27/2023 11:30 Ordering Phys: Tung Mcbride MD Technologist: Jordon Mullen [place] [facility] [place]: stroke BP: 147 / 107 HR: 104 Rhythm: Sinus Technical Quality: Adequate MEASUREMENTS (Male / Female) Normal Values 2D ECHO LVOT Diameter 2.1 cm LV Ejection Fraction MOD 2C 51.0 % LV Ejection Fraction 2C AL 52.2 % LA Diameter 4.0 cm LA Width 4.1 cm LA Height 4.4 cm RA Width 3.7 cm RA Height 4.7 cm Aorta at Sinotubular Diameter 3.0 cm M-MODE Aortic Annulus Diameter 2.4 cm LA Ao Ratio MM 1.8 DOPPLER AV Peak Velocity 150.0 cm/s LVOT Peak Velocity 105.0 cm/s AV Area Cont Eq vti 2.9 cm squared AV Area Cont Eq pk 2.5 cm squared MV Peak Velocity 122.0 cm/s MV Area PHT 13.8 cm squared Mitral E to A Ratio 0.5 MV E' Velocity 33.0 cm/s Mitral E to MV E' Ratio 4.9 Mitral E to LV E' Lateral Ratio 4.2 Mitral E to LV E' Septal Ratio 6.0 Right Atrial Pressure 8.0 mmHg PV Peak Velocity 125.7 cm/s RV Acceleration Time 0.1 s RV Ejection Time 0.2 s RV AcT/ET 0.6 FINDINGS Left Ventricle Normal left ventricular size, systolic function and wall thickness, with no regional wall motion abnormalities. Normal left ventricular wall thickness. grade I diastolic dysfunction filling pattern. Right Ventricle The right ventricle is normal in size and function. Right Atrium The right atrium is normal in size. Left Atrium The left atrium is normal in size. negative bubble study. Mitral Valve Structurally normal mitral valve without significant stenosis or prolapse. There is mild mitral regurgitation. Aortic Valve Structurally normal aortic valve without significant sclerosis or stenosis. There is no aortic regurgitation. Tricuspid Valve Structurally normal tricuspid valve without significant stenosis . there is mild regurgitation. Pulmonary artery systolic pressure is normal. Pulmonic Valve Structurally normal pulmonic valve without significant stenosis. There is no pulmonic regurgitation. Pericardium Normal pericardium without effusion. Aorta Normal ascending aorta dimension. IVC The inferior vena cava appears normal. CONCLUSIONS Татьяна Alfredo MD (Electronically Signed) Final Date: 27 May 2023 12:32 S
[2023-05-27 06:10] LABS: Folate Level > 20.0 ng/mL (4.5-32.2)
[2023-05-27] MEDS: vancomycin 1,250 MG/250 ML PIGGYBACK 250 MG IV ×2 (06:14→17:50)
[2023-05-27] MEDS: azithromycin 500 MG in sodium chloride 0.9% 250 ML 250 MG IV (08:34)
[2023-05-27] MEDS: aspirin 300 mg Supp PR (12:33)
--- NOTE | 2023-05-27 13:00 | MRR_ITS ---
PROCEDURE INFORMATION: Exam: MR Head Without Contrast Exam date and time: 05/27/2023 2:53 PM Age: 62 years old Clinical indication: Altered mental status/memory loss and speech disturbance; Confusion or disorientation; Aphasia; Patient HX: HX lung cancer; Additional info: Stroke TECHNIQUE: Imaging protocol: Magnetic resonance imaging of the head without contrast. COMPARISON: CT angio headneck* [id number] 05/26/2023 9:22 AM FINDINGS: Brain: Multifocal areas of diffusion restriction with correlating low ADC signal. These are most prominent around the sylvian fissures bilaterally and left parieto-occipital region. There also multiple punctate foci in the cerebellum. Right middle cranial fossa arachnoid cyst. Cerebral ventricles: No ventriculomegaly. Bones/joints: No acute findings. Paranasal sinuses: No acute sinusitis. Mastoid air cells: No mastoid effusion. Orbital cavities: Unremarkable. Soft tissues: Unremarkable. MR/MR head wo con* [id number] IMPRESSION: Extensive multifocal bilateral cerebral and cerebellar acute/subacute infarcts. Noncontrast technique precludes further evaluation for underlying neoplastic component given provided history.
--- NOTE | 2023-05-27 13:11 | PC.SLP ---
Pt at high risk for aspiration; Recommend continued NPO diet.
[2023-05-27] MEDS: potassium chloride premix 100 ML 25 MEQ IV ×2 (13:28→20:41)
[2023-05-27] MEDS: morphine 4 mg/mL SDV 1 mL 2 MG IVP (14:00)
[2023-05-27] MEDS: pantoprazole 40 mg SDV IVP (14:01)
--- NOTE | 2023-05-27 15:48 | P.PN_ITS ---
Subjective 2 Subjective: No acute events overnight. Patient has remained hemodynamically stable. Febrile up to 101.1 Fahrenheit. Remains on room air. Patient remains at the same mentation. Patient is awake with eyes open, not following simple commands currently other than squeezing hands with right hand. Patient remains aphasic. Seen with at bedside. Vitals/I&O/Wt Last Vital Signs Temp 101.1 F H 05/27/23 13:00 Pulse 107 H 05/27/23 14:00 Resp 35 H 05/27/23 14:00 BP 172/95 05/27/23 13:00 Pulse Ox 95 05/27/23 14:00 O2 Del Method Room Air 05/27/23 13:00 05/27/23 05/27/23 05/27/23 06:59 14:59 22:59 Intake Total 1145 / 1550 550 / 550 Output Total 200 / 550 Balance 945 / 1000 550 / 550 Weight last 48 hrs Weight 120.656 kg Weight 120.656 kg Weight 120.656 kg Physical Exam 2 Narrative: General: No acute distress, right preferential gaze, not able to follow commands though it seems he is able to understand words on and off HEENT: PERRLA, pupils bilaterally equal and reactive Chest: Normal vesicular breath sounds, no added sounds, equal good air entry bilaterally CVS: S1-S2 regular, no murmurs, no tachycardia, no gallops, no rubs Abdomen: Soft, nontender, no organomegaly, bowel sounds present Neuro: Facial droop to the left side, left upper limb 1/5, right side upper limb and lower limb along with left lower limb 3/5, plantars bilaterally upgoing Data 05/27/23 04:16 05/27/23 04:16 Micro: Microbiology 05/26/23 15:57 Blood Culture - Preliminary Blood 05/26/23 15:50 Blood Culture - Preliminary Blood 05/26/23 18:15 Bacterial Antigens - Final Urine Kidney 05/26/23 18:15 Legionella Urinary Antigen - Final Unknown Source A&P Assessment and plan (1) Sepsis: Ruled in on admission because of tachycardia, leukocytosis, end-organ damage with SUDEEP. Source of infection most likely pneumonia though further workup is needed. Appreciate CT chest results. Follow-up blood cultures, respiratory viral panel negative, MRSA swab pending, urinalysis negative for nitrite but trace leuk esterase. Follow-up urine culture. Urine Legionella, bacterial antigen negative. Continue with D5 NS at 75 cc/h. (2) Acute thromboembolic cerebrovascular accident: As per MRI done on 05/12. Appreciate CTA head and neck done in [place]. Echocardiogram seems to have normal EF without regional wall motion abnormality and grade 1 diastolic dysfunction, normal RV functions. Keep NPO. Speech therapy/PT/OT evaluation. Advance diet accordingly. Appreciate A1c, lipid panel. Continue with full dose Lovenox 1 mg/kg body weight every 12 hourly. (3) Non-ST elevation MT (NSTEMI): Baseline troponin elevated with a positive delta troponin. Continue with full dose Lovenox. Appreciate echocardiogram for normal EF without regional wall motion normality. Rectal aspirin. Will switch to IV metoprolol 5 mg every 4 hours scheduled. If patient's mentation improves might benefit from stress test. (4) Pneumonia: High likelihood of aspiration pneumonia. Does have lung cancer. DuoNebs every 6 hour, Pulmicort twice daily. Antibiotics as above. (5) Adenocarcinoma of lower lobe of right lung: Follows up with oncology as an outpatient. On radiation therapy. (6) Hypertension: Patient has had a stroke for over 9 days ago. Goal blood pressure less than 140/90 mmHg. Start on clonidine 0.1 mg patch. IV metoprolol 5 mg every 4 scheduled. To be held for heart rate of less than 70 bpm. IV hydralazine 10 mg every 6 hours as needed for systolic blood pressure of more than 160 mmHg. (7) Diabetes: A1c normal. Hypoglycemia protocol. Not on any antidiabetic medication as an outpatient. Will start on insulin sliding scale as per A1c. Plan CODE STATUS: Discussed in detail with patient's at bedside. is the DPOA. Full code. If needed she will be okay with feeding tube. Full dose Lovenox will suffice for DVT prophylaxis N.p.o. Protonix for PUD [facility] Attestations 2 Medical Necessity Statement*: Requires further hospitalization for management of non-ST elevation MT, sepsis secondary to aspiration pneumonia in a patient with thromboembolic stroke Diagnoses Sepsis A41.9 Acute thromboembolic cerebrovascular accident I63.9 Non-ST elevation MT (NSTEMI) I21.4 Pneumonia J18.9 Adenocarcinoma of lower lobe of right lung C34.31 Hypertension I10 Diabetes E11.9
[2023-05-27] MEDS: metoprolol tartrate 1 mg/1 mL SDV 5 mL 5 MG IVP ×2 (17:08→20:51)
[2023-05-27] MEDS: ipratropium-albuterol 3 mL Neb INHALATION (20:24)
[2023-05-28] VITALS (11 sets, daily range): BP systolic 156–188; BP diastolic 84–111; PULSE 92–108; RESP 20–42; TEMP 36.8–38.9; O2SAT 93–95; BMI 38.5
[2023-05-28] MEDS: metoprolol tartrate 1 mg/1 mL SDV 5 mL 5 MG IVP ×6 (01:08→21:28)
[2023-05-28] MEDS: enoxaparin 120 mg/0.8 mL Syringe SUBCUT ×2 (04:24→16:50)
[2023-05-28 04:48] LABS: Basophils % 0.1 %; Eosinophils % 0.1 %; Hematocrit 38.4 % (37-53); Lymphocytes # 0.4 10^3/uL (0.8-4.8); Lymphocytes % 2.6 %; Mean Corpuscular Hemoglobin 29.6 pg (27-33); Mean Corpuscular Volume 95.5 fl (82-101); Monocytes # 1.4 10^3/uL (0.2-0.9); Monocytes % 10.2 %; Neutrophils # 12.16 10^3/uL (1.8-7.7); Neutrophils % 86.4 %; Nucleated Red Blood Cells % 0 %; Platelet Count 125 10^3/cmm (157-399); Red Blood Count 4.02 10^6/uL (3.85-5.65); Red Cell Distribution Width 14.4 % (12.1-15.1); White Blood Count 14.05 10^3/uL (3.29-11.43)
[2023-05-28 05:00] LABS: Vancomycin Trough 14.7 ug/mL (10-15)
[2023-05-28 05:04] LABS: Alanine Aminotransferase 21 U/L (0-41); Alkaline Phosphatase 82 U/L (40-130); Anion Gap 13.4 (5-19); Aspartate Amino Transferase 43 U/L (0-40); Blood Urea Nitrogen 14 mg/dL (8-23); Calcium 8.4 mg/dL (8.5-10.5); Carbon Dioxide 23 mmol/L (22-29); Chloride 115 mmol/L (98-107); Globulin 3.6 g/dL (1.3-4.6); Glomerular Filtration Rate 76.2 mL/min (90-130); Glucose 98 mg/dL (65-115); Osmolality Calculated 306 mOsm/kg (285-295); Potassium 3.4 mmol/L (3.5-5.1); Sodium 148 mmol/L (136-145); Total Protein 6.6 g/dL (6.6-8.7)
[2023-05-28] MEDS: vancomycin 1,250 MG/250 ML PIGGYBACK 250 MG IV ×2 (05:16→17:56)
[2023-05-28] MEDS: piperacillin-tazobactam 3.375 GM in sodium chloride 0.9% (plus) 50 ML IV ×2 (08:23→16:51)
[2023-05-28] MEDS: hyDRALAzine 20 mg/mL INJ 1 mL 10 MG IVP ×2 (08:46→22:35)
[2023-05-28] MEDS: acetaminophen 1,000 MG/100 ML PIGGYBACK 400 MG IV (09:22)
[2023-05-28] MEDS: azithromycin 500 MG in sodium chloride 0.9% 250 ML 250 MG IV (09:57)
[2023-05-28] MEDS: aspirin 300 mg Supp PR (12:07)
[2023-05-28] MEDS: dextrose 5%-sod chloride 0.9% 1,000 ML 75 ML IV (12:08)
--- NOTE | 2023-05-28 13:56 | PC.OT ---
Hold OT daily treatment for 05/28/2023 due to patient's current status. Will attempt treatment at later time.
--- NOTE | 2023-05-28 16:51 | PM.PN ---
Subjective Subjective: Nursing reports patient has been breathing faster today and currently has a fever of 101. Nursing says that he still having trouble swallowing, and is requesting order for IV tylenol. Patient is nonverbal at this time, but he is able to answer yes and no questions. He denies having any pain at this time. says that his breathing has been fast for several days, but is slightly faster today. Vitals/I&O/Wt Last Vital Signs Temp 101.7 F H 05/28/23 12:00 Pulse 95 05/28/23 12:00 Resp 35 H 05/28/23 12:00 BP 165/96 05/28/23 12:00 Pulse Ox 93 05/28/23 11:07 O2 Del Method Room Air 05/28/23 11:07 05/28/23 05/28/23 05/28/23 06:59 14:59 22:59 Intake Total 400 / 2300 1400.000 / 1400.000 Output Total 300 / 650 750 / 750 Balance 100 / 1650 1400.000 / 1400.000 -750 / 650.000 Weight last 48 hrs Weight 268 lb 9 oz Weight 268 lb 9 oz Weight 266 lb Weight 266 lb Physical Exam Narrative: General: Patient appears resting comfortably, but is tachypneic. Is able to answer yes and no questions, able to follow some instructions. HEENT: PERRLA. EOMI appear intact. Chest: Very mild bibasilar crackles, tachypneic. Breathing is not otherwise labored. CVS: RRR. Abdomen: Soft, nontender, no organomegaly, bowel sounds present. Neuro: Facial asymmetry with droop to the side. Bilateral weakness to UE/LE's. Data 05/28/23 03:58 05/28/23 03:58 Micro: Microbiology 05/26/23 18:48 Urine Culture - Final Urine,Clean Catch 05/26/23 15:57 Blood Culture - Preliminary Blood 05/26/23 15:50 Blood Culture - Preliminary Blood A&P Assessment and plan (1) Sepsis: Ruled in on admission because of tachycardia, leukocytosis, end-organ damage with SUDEEP. Source of infection most likely pneumonia though further workup is needed. Appreciate CT chest results. Follow-up blood cultures, respiratory viral panel negative, MRSA swab pending, urinalysis negative for nitrite but trace leuk esterase. Follow-up urine culture. Urine Legionella, bacterial antigen negative. Continue with D5 NS at 75 cc/h. (2) Acute thromboembolic cerebrovascular accident: As per MRI done on 05/12. Appreciate CTA head and neck done in [place]. Echocardiogram seems to have normal EF without regional wall motion abnormality and grade 1 diastolic dysfunction, normal RV functions. Continue with full dose Lovenox 1 mg/kg body weight every 12 hourly. (3) Non-ST elevation MO (NSTEMI): Baseline troponin elevated with a positive delta troponin. Continue with full dose Lovenox. Appreciate echocardiogram for normal EF without regional wall motion normality. Rectal aspirin. Will switch to IV metoprolol 5 mg every 4 hours scheduled. If patient's mentation improves might benefit from stress test. (4) Pneumonia: High likelihood of aspiration pneumonia. Does have lung cancer. DuoNebs every 6 hour, Pulmicort twice daily. Antibiotics as above. (5) Adenocarcinoma of lower lobe of right lung: Follows up with oncology as an outpatient. On radiation therapy. (6) Hypertension: Patient has had a stroke for over 9 days ago. Goal blood pressure less than 140/90 mmHg. Start on clonidine 0.1 mg patch. IV metoprolol 5 mg every 4 scheduled. To be held for heart rate of less than 70 bpm. IV hydralazine 10 mg every 6 hours as needed for systolic blood pressure of more than 160 mmHg. (7) Diabetes: A1c normal. Hypoglycemia protocol. Not on any antidiabetic medication as an outpatient. Will start on insulin sliding scale as per A1c. Plan PLAN FOR TODAY: Continues to have tachypnea. Will reorder lab panel and check CRP, procalcitonin, viral panel. Repeat CXR today. Recheck blood cultures and lactic acid. Check blood gas. Will continue with broad-spectrum antibiotics at this time. Platelets have been low since admission. Baseline is well within normal range. Check HIT panel today. RAAT, O2 protocol. Dysphagia diet per NUMERICAL CONTROL PROGRAMMER. Discussion with spouse regarding his CODE STATUS. Patient is at high risk for sudden clinical deterioration, and his prognosis is guarded. Code Status: Full IVF: D5NS at 75 DVT PPx: Lovenox GI PPx: Protonix ABx: Azithromycin, Zosyn, vancomycin Diet: Dysphagia diet. Discharge plan: SNF when appropriate. Attestations Medical Necessity Statement*: Requires further hospitalization for management of non-ST elevation MO, sepsis secondary to aspiration pneumonia in a patient with thromboembolic stroke Coding Level of Care Code Acute Code for Chg Fwd High MDM includes number and complexity of problems actively addressed during encounter, amount and/or complexity of data reviewed/ordered and described risk of complication, morbidity or mortality of management as documented Diagnoses Sepsis A41.9 Acute thromboembolic cerebrovascular accident I63.9 Non-ST elevation MO (NSTEMI) I21.4 Pneumonia J18.9 Adenocarcinoma of lower lobe of right lung C34.31 Hypertension I10 Diabetes E11.9
--- NOTE | 2023-05-28 17:02 | XRR_ITS ---
PROCEDURE INFORMATION: Exam: XR Chest Exam date and time: 05/28/2023 7:43 PM Age: 62 years old Clinical indication: Fever and tachypnea; Patient HX: Tachypnea; Fever; Post stroke TECHNIQUE: Imaging protocol: Radiologic exam of the chest. Views: 1 view. COMPARISON: CT chest con [id number] 04/14/2024 20:16 FINDINGS: Tubes, catheters and devices: Right [id number]-T-Elig with tip in the upper right atrium. Lungs: Interstitial opacities in the peripheral lungs and right base ground-glass opacity. Shallow inspiration with crowding. Pleural spaces: No definite pleural effusion. No pneumothorax. Heart/Mediastinum: Mild cardiomegaly. Bones/joints: Unremarkable. XR/XR chest 1V portable [id number] IMPRESSION: 1. Stable atelectasis versus pneumonia in the right lung base. 2. Interstitial opacities in both lungs could indicate pulmonary edema or infectious bronchiolitis.
[2023-05-28 17:32] LABS: ABG PCO2 33.2 mmHg (35-45); ABG PH Result 7.47 (7.35-7.45); Arterial Blood Gas Hematocrit 37.8 % (42-52); Base Excess ABG 1.2 mmol/L (-2.0-2.0); Blood Gas Allen Test Pos; Blood Gas Operator Identificat WALCI; Blood Gas Sample Site Radial, right; Blood Gas Sample Type Arterial; HCO3 ABG 24.4 mmol/L (22-26); Oxygen Device ROOM AIR; PO2 ABG 62.1 mmHg (80.0-100.0); PO2 FiO2 Ratio Arterial Blood 0
[2023-05-28] MEDS: pantoprazole 40 mg SDV IVP (17:36)
[2023-05-28 18:27] LABS: Basophils % 0.2 %; Eosinophils % 0.2 %; Hematocrit 39.4 % (37-53); Lymphocytes # 0.4 10^3/uL (0.8-4.8); Lymphocytes % 3.6 %; Mean Corpuscular HGB Conc 29.9 g/dL (30-55); Mean Corpuscular Hemoglobin 29.6 pg (27-33); Mean Corpuscular Volume 98.7 fl (82-101); Mean Platelet Volume 9.6 fL (7.4-10.4); Monocytes # 1.3 10^3/uL (0.2-0.9); Monocytes % 10.4 %; Neutrophils # 10.45 10^3/uL (1.8-7.7); Nucleated Red Blood Cells % 0 %; Platelet Count 116 10^3/cmm (157-399); Red Blood Count 3.99 10^6/uL (3.85-5.65); Red Cell Distribution Width 14.3 % (12.1-15.1); White Blood Count 12.27 10^3/uL (3.29-11.43)
[2023-05-28 18:51] LABS: Alanine Aminotransferase 24 U/L (0-41); Albumin Level 2.8 g/dL (3.5-5.2); Alkaline Phosphatase 87 U/L (40-130); Anion Gap 12.1 (5-19); Aspartate Amino Transferase 44 U/L (0-40); Blood Urea Nitrogen 13 mg/dL (8-23); C Reactive Protein 112.2 mg/L (0.0-4.9); Calcium 8.2 mg/dL (8.5-10.5); Carbon Dioxide 23 mmol/L (22-29); Chloride 117 mmol/L (98-107); Globulin 3.6 g/dL (1.3-4.6); Glomerular Filtration Rate 76.2 mL/min (90-130); Glucose 102 mg/dL (65-115); Osmolality Calculated 308 mOsm/kg (285-295); Potassium 3.1 mmol/L (3.5-5.1); Sodium 149 mmol/L (136-145); Total Bilirubin 0.8 mg/dL (0.15-1.2); Total Protein 6.4 g/dL (6.6-8.7)
[2023-05-28 20:33] LABS: Adenovirus Not Detected (NOT DETECT); Chlamydia Pneumoniae Not Detected (NOT DETECT); Coronavirus 229E,HKU1,NL63,OC4 Not Detected (NOT DETECT); Human Metapneumovirus Not Detected (NOT DETECT); Human Rhinovirus/Enterovirus Not Detected (NOT DETECT); Influenza A Not Detected (NOT DETECT); Influenza A H1 Not Detected (NOT DETECT); Influenza A H1-2009 Not Detected (NOT DETECT); Influenza A H3 Not Detected (NOT DETECT); Influenza B Not Detected (NOT DETECT); Mycoplasma Pneumoniae Not Detected (NOT DETECT); Parainfluenza Virus Type 1 Not Detected (NOT DETECT); Parainfluenza Virus Type 2 Not Detected (NOT DETECT); Parainfluenza Virus Type 3 Not Detected (NOT DETECT); Parainfluenza Virus Type 4 Not Detected (NOT DETECT); Respiratory Syncytial Virus A Not Detected (NOT DETECT); Respiratory Syncytial Virus B Not Detected (NOT DETECT); SARS-COV-2 Not Detected (NOT DETECT)
[2023-05-28] MEDS: dextrose 5%-sod chloride 0.45% 1,000 ML 75 ML IV (22:39)
[2023-05-28] MEDS: potassium chloride premix 100 ML 25 MEQ IV (22:41)
[2023-05-29] VITALS (22 sets, daily range): BP systolic 148–205; BP diastolic 89–107; PULSE 44–130; RESP 18–40; TEMP 37.3–38.3; O2SAT 92–100; BMI 38.7
[2023-05-29] MEDS: morphine 4 mg/mL SDV 1 mL 2 MG IVP ×5 (00:17→22:01)
[2023-05-29] MEDS: metoprolol tartrate 1 mg/1 mL SDV 5 mL 5 MG IVP ×5 (02:16→20:19)
[2023-05-29] MEDS: ketorolac 30 mg/mL INJ 15 MG IVP (02:16)
[2023-05-29] MEDS: piperacillin-tazobactam 3.375 GM in sodium chloride 0.9% (plus) 50 ML IV ×3 (03:49→18:43)
[2023-05-29] MEDS: enoxaparin 120 mg/0.8 mL Syringe SUBCUT ×2 (04:03→15:55)
[2023-05-29] MEDS: vancomycin 1,250 MG/250 ML PIGGYBACK 250 MG IV ×2 (05:57→17:23)
[2023-05-29 06:03] LABS: Procalcitonin 0.13 ng/mL (0-0.5)
[2023-05-29 08:33] LABS: Basophils % 0.3 %; Eosinophils # 0.1 10^3/uL (0.0-0.8); Eosinophils % 0.5 %; Hematocrit 36.9 % (37-53); Lymphocytes # 0.4 10^3/uL (0.8-4.8); Lymphocytes % 3.9 %; Mean Corpuscular HGB Conc 30.4 g/dL (30-55); Mean Corpuscular Hemoglobin 29.4 pg (27-33); Mean Corpuscular Volume 96.9 fl (82-101); Mean Platelet Volume 9.9 fL (7.4-10.4); Neutrophils # 8.57 10^3/uL (1.8-7.7); Neutrophils % 84.6 %; Nucleated Red Blood Cells % 0 %; Platelet Count 117 10^3/cmm (157-399); Red Blood Count 3.81 10^6/uL (3.85-5.65); Red Cell Distribution Width 14.5 % (12.1-15.1); White Blood Count 10.13 10^3/uL (3.29-11.43)
[2023-05-29] MEDS: azithromycin 500 MG in sodium chloride 0.9% 250 ML 250 MG IV (10:28)
[2023-05-29] MEDS: aspirin 300 mg Supp PR (10:28)
[2023-05-29] MEDS: dextrose 5%-sod chloride 0.45% 1,000 ML 75 ML IV (10:47)
--- NOTE | 2023-05-29 12:27 | ECG_ITS ---
[facility] Test Date: 2023-05-29 Pat Name: Syd Gibbs Department: Room: 278 Gender: Male Senior Cyber Security Analyst: : 1960 Requested By: Juani Mckeon Order Number: [id number] Ezequiel MD: Lizzie Heard M.D. Measurements Intervals [place] Rate: 160 P: 0 MI: 0 QRS: -38 QRSD: 86 T: -8 QT: 267 QTc: 436 Interpretive Statements ATRIAL FIBRILLATION WITH RAPID VENTRICULAR RESPONSE LEFT AXIS DEVIATION [QRS AXIS < -30] POSSIBLE ANTERIOR MYOCARDIAL INFARCTION , PROBABLY OLD [30 ms Q WAVE IN V3/V4, OR R < 0.2 mV IN V4] CRITICAL TEST RESULT Compared to ECG 05/26/2023 18:01:44 Left-axis deviation now present Sinus tachycardia no longer present Left anterior fascicular block no longer present Myocardial infarct finding still present Electronically Signed On 05-30-2023 10:07:01 SALOON KEEPER by Lizzie Heard M.D. [id number]
[2023-05-29] MEDS: dilTIAZem 5 mg/mL SDV 5 mL 10 MG IVP (12:45)
--- NOTE | 2023-05-29 13:35 | PM.PN ---
Subjective Subjective: Seen this morning. Unable to follow any commands at all. He keeps moving his feet however and wiggling his toes. states he might be in pain. Discussed with regarding feeding tube but she was tearful. She says she will talk to her [id number] and then decide what to do further. Patient has been febrile overnight as well. Does not track at all and unable to follow simple commands. Vitals/I&O/Wt Last Vital Signs Temp 100.0 F H 05/29/23 12:33 Pulse 130 H 05/29/23 12:33 Resp 39 H 05/29/23 12:33 BP 149/105 05/29/23 12:33 Pulse Ox 92 05/29/23 12:33 O2 Del Method Room Air 05/29/23 12:33 05/28/23 05/29/23 05/29/23 22:59 06:59 14:59 Intake Total 1087.5 / 2487.500 376.667 / 2864.167 1210 / 1210 Output Total 1425 / 1425 550 / 1975 Balance -337.5 / 1062.500 -173.333 / 808.204 5822 / 1210 Weight last 48 hrs Weight 122.47 kg Weight 122.47 kg Weight 121.818 kg Weight 121.818 kg Physical Exam Narrative: General: Patient appears resting comfortably, unable to follow any commands. HEENT: PERRLA. EOMI appear intact. Chest: Very mild bibasilar crackles, somewhat tachypneic. CVS: RRR. Abdomen: Soft, nontender, no organomegaly, bowel sounds present. Neuro: Facial asymmetry with droop to the side. Unable to follow commands. Unable to assess neuroexam. Data 05/29/23 04:51 05/28/23 17:54 Micro: Microbiology 05/26/23 18:48 Urine Culture - Final Urine,Clean Catch A&P Assessment and plan (1) Sepsis: Ruled in on admission because of tachycardia, leukocytosis, end-organ damage with SUDEEP. Source of infection most likely pneumonia though further workup is needed. Appreciate CT chest results. Follow-up blood cultures, respiratory viral panel negative, MRSA swab pending, urinalysis negative for nitrite but trace leuk esterase. Follow-up urine culture. Urine Legionella, bacterial antigen negative. Continue with D5 NS at 75 cc/h. No labs today. Will check CBC CMP today. (2) Acute thromboembolic cerebrovascular accident: As per MRI done on 05/12. Appreciate CTA head and neck done in [place]. Echocardiogram seems to have normal EF without regional wall motion abnormality and grade 1 diastolic dysfunction, normal RV functions. Continue with full dose Lovenox 1 mg/kg body weight every 12 hourly. (3) Non-ST elevation MD (NSTEMI): Baseline troponin elevated with a positive delta troponin. Continue with full dose Lovenox. Appreciate echocardiogram for normal EF without regional wall motion normality. Rectal aspirin. Will switch to IV metoprolol 5 mg every 4 hours scheduled. If patient's mentation improves might benefit from stress test. (4) Pneumonia: High likelihood of aspiration pneumonia. Does have lung cancer. DuoNebs every 6 hour, Pulmicort twice daily. Antibiotics as above. (5) Adenocarcinoma of lower lobe of right lung: Follows up with oncology as an outpatient. On radiation therapy. (6) Hypertension: Patient has had a stroke for over 9 days ago. Goal blood pressure less than 140/90 mmHg. Start on clonidine 0.1 mg patch. IV metoprolol 5 mg every 4 scheduled. To be held for heart rate of less than 70 bpm. IV hydralazine 10 mg every 6 hours as needed for systolic blood pressure of more than 160 mmHg. (7) Diabetes: A1c normal. Hypoglycemia protocol. Not on any antidiabetic medication as an outpatient. Will start on insulin sliding scale as per A1c. Plan PLAN FOR TODAY: Continues to have tachypnea. Will order labs for today., procalcitonin 0.13, viral panel negative. Repeat CXR today. Recheck blood cultures and lactic acid. Blood gas from yesterday morning shows respiratory alkalosis. Will continue with broad-spectrum antibiotics at this time. Platelets have been low since admission. Baseline is well within normal range. HIT panel pending at this time RAAT, O2 protocol. Dysphagia diet per BUSINESS SERVICES ASSISTANT. #Atrial fibrillation with RVR Heart rate 1 30-1 60 at this time. Cardizem 10 IV push given. Check magnesium and potassium. Potassium to remain above 4 and magnesium above 2 transfer to [facility] Discussion with spouse regarding his CODE STATUS. Patient is at high risk for sudden clinical deterioration, and his prognosis is severely guarded. Code Status: Full IVF: D5NS at 75 DVT PPx: Lovenox GI PPx: Protonix ABx: Azithromycin, Zosyn, vancomycin Diet: Dysphagia diet. Discharge plan: SNF when appropriate. Attestations Medical Necessity Statement*: Requires further hospitalization for management of non-ST elevation MD, sepsis secondary to aspiration pneumonia in a patient with thromboembolic stroke Diagnoses Sepsis A41.9 Acute thromboembolic cerebrovascular accident I63.9 Non-ST elevation MD (NSTEMI) I21.4 Pneumonia J18.9 Adenocarcinoma of lower lobe of right lung C34.31 Hypertension I10 Diabetes E11.9
[2023-05-29] MEDS: pantoprazole 40 mg SDV IVP (15:54)
[2023-05-29 16:09] LABS: Methicillin-Resist S.aureu PCR NOT DETECTED (NOT DETECTED)
--- NOTE | 2023-05-29 17:45 | PC.OT ---
OT services withheld this date due to patient medical condition/running fever per nursing. To attempt OT services on a later date.
--- NOTE | 2023-05-29 22:43 | XRR_ITS ---
PROCEDURE INFORMATION: Exam: XR Chest Exam date and time: 05/29/2023 11:07 PM Age: 62 years old Clinical indication: Dyspnea; Additional info: SOB TECHNIQUE: Imaging protocol: Radiologic exam of the chest. Views: 1 view. COMPARISON: CR (CHEST, ) 05/28/2023 7:43 PM FINDINGS: Tubes, catheters and devices: Right IJ Port-A-Cath is unchanged. Lungs: Lung volumes are mildly low. Mild air-space opacities at right lower lung have decreased, while mild air- space opacities at left lower lung have increased. Pleural spaces: Unremarkable. No pleural effusion. No pneumothorax. Heart/Mediastinum: Heart remains mild-moderately enlarged. Bones/joints: Mild left upper thoracic curvature or scoliosis is unchanged. Degenerative disc disease of lower thoracic and upper lumbar spine is present. There is mild osteoarthritis of right acromioclavicular joint. XR/XR chest 1V portable [id number] IMPRESSION: 1. Decreased, mild air-space opacities at right lower lung and increased, mild air-space opacities at left lower lobe. 2. Persistent, mild-moderately enlarged heart.
[2023-05-29] MEDS: hyDRALAzine 20 mg/mL INJ 1 mL 10 MG IVP (22:51)
[2023-05-29 23:18] LABS: NT Pro B Type Natriuretic Pept 3586 pg/mL (0-125)
--- NOTE | 2023-05-29 23:18 | PC.NURSE ---
Spoke to Dr. John regarding increased work of breath. Respirations are labored, nasal flaring and retractions present, O2 in mid 80s. Respirations rate 41. Patient HOB raised, applied 2L NC, suction used to clear mouth, given PRN Morphine. Patients blood pressure 193/106, given PRN HYdralazine. Given orders by Dr. John to get a stat chest xray, Bnp, and to contact respiratory. Upon returning to room had removed O2 off patient, pts O2 at 80%. When attempting to place O2 back on patient, stated she didn't want that on him, he just needed suctioned . Educated on need for O2 to keep levels above 90s. Respiratory in room, oxygen turned up to 6L.
--- NOTE | 2023-05-29 23:38 | ECG_ITS ---
[facility] Test Date: 2023-05-29 Pat Name: Syd Gibbs Department: Room: 111 Gender: Male Hand Surgeon: : 1960 Requested By: Henri John Order Number: [id number] Ezequiel MD: Lizzie Heard M.D. Measurements Intervals [place] Rate: 147 P: 35 PA: 155 QRS: -48 QRSD: 89 T: 17 QT: 280 QTc: 438 Interpretive Statements SINUS TACHYCARDIA, POSSIBLE ATRIAL FLUTTER LEFT ANTERIOR FASCICULAR BLOCK [QRS AXIS <= -45, QR IN I, RS IN II] POSSIBLE ANTERIOR MYOCARDIAL INFARCTION , OF INDETERMINATE AGE [30 ms Q WAVE IN V3/V4, OR R < 0.2 mV IN V4] Compared to ECG 05/29/2023 12:34:26 Left anterior fascicular block now present Atrial fibrillation no longer present Left-axis deviation no longer present Myocardial infarct finding still present Electronically Signed On 05-30-2023 10:09:30 CARE MANAGEMENT ASSOCIATE by Lizzie Heard M.D. [id number]
[2023-05-29] MEDS: amiodarone 150 MG/100 ML PREMIX 400 MG IV (23:52)
[2023-05-29] MEDS: FUROsemide 10 mg/mL SDV 4mL 40 MG IVP (23:59)
[2023-05-30] VITALS (19 sets, daily range): BP systolic 126–178; BP diastolic 93–120; PULSE 7–143; RESP 25–36; TEMP 37–38.4; O2SAT 91–100
[2023-05-30 00:11] LABS: NT Pro B Type Natriuretic Pept 3093 pg/mL (0-125)
--- NOTE | 2023-05-30 00:22 | PC.NURSE ---
Spoke to Dr. Young regarding patients increased heart rate, continued increased blood pressures and respiratory rates. Given orders for BiPap, EKG, 40mg Lasix IVP ONCE, 150 Bolus Amiodarone with Amiodarone IV to follow. Educated family on new orders.
[2023-05-30 01:07] LABS: Basophils # 0.1 10^3/uL (0.0-0.1); Basophils % 0.5 %; Eosinophils # 0.2 10^3/uL (0.0-0.8); Eosinophils % 1.3 %; Hematocrit 44.5 % (37-53); Lymphocytes # 1.1 10^3/uL (0.8-4.8); Lymphocytes % 6.8 %; Mean Corpuscular HGB Conc 29.9 g/dL (30-55); Mean Corpuscular Hemoglobin 29.4 pg (27-33); Mean Corpuscular Volume 98.5 fl (82-101); Mean Platelet Volume 9.9 fL (7.4-10.4); Monocytes # 1.4 10^3/uL (0.2-0.9); Monocytes % 8.2 %; Neutrophils % 80.1 %; Nucleated Red Blood Cells % 0.1 %; Platelet Count 186 10^3/cmm (157-399); Red Blood Count 4.52 10^6/uL (3.85-5.65); Red Cell Distribution Width 14.4 % (12.1-15.1); White Blood Count 16.38 10^3/uL (3.29-11.43)
[2023-05-30 01:20] LABS: Anion Gap 14.9 (5-19); Blood Urea Nitrogen 12 mg/dL (8-23); Calcium 8.9 mg/dL (8.5-10.5); Carbon Dioxide 26 mmol/L (22-29); Chloride 119 mmol/L (98-107); Creatinine Clr Calc Pharmacy 103.0978; Glomerular Filtration Rate 76.2 mL/min (90-130); Glucose 142 mg/dL (65-115); Osmolality Calculated 324 mOsm/kg (285-295); Phosphorus 6.1 mg/dL (2.5-4.5); Potassium 3.9 mmol/L (3.5-5.1); Sodium 156 mmol/L (136-145)
[2023-05-30 01:32] LABS: NT Pro B Type Natriuretic Pept 4946 pg/mL (0-125)
--- NOTE | 2023-05-30 01:46 | PC.RESP ---
Spoke with in regards to placing patient on BIPAP per physician order. I explained the pros and cons and the purpose for the BIPAP, stated she wanted time to think about it and to call her Sister In law. I informed RN of wifes decision.
[2023-05-30] MEDS: piperacillin-tazobactam 3.375 GM in sodium chloride 0.9% (plus) 50 ML IV ×3 (02:44→19:37)
[2023-05-30] MEDS: enoxaparin 120 mg/0.8 mL Syringe SUBCUT ×2 (02:45→17:11)
[2023-05-30] MEDS: metoprolol tartrate 1 mg/1 mL SDV 5 mL 5 MG IVP ×5 (02:56→22:54)
[2023-05-30] MEDS: vancomycin 1,250 MG/250 ML PIGGYBACK 2501 MG IV (04:36)
--- NOTE | 2023-05-30 07:56 | XR_ITS ---
WS: [id number] Exam: XR chest 1V [id number] Date/Time of Exam: 05/30/2023 7:56 AM Reason For Exam: pulm edema Comparison 05/29/2023. Increasing infiltrate and atelectasis in the RIGHT lower lobe. The LEFT lung is clear. No pneumothora x or pleural effusion. Cardiomediastinal silhouette is unremarkable. Right-sided Port-A-Cath ends at the cavoatrial junction. Bony structures are intact. IMPRESSION1. Increasing infiltrate and atelectasis in the RIGHT lower lobe since prior study. No othe r change.
[2023-05-30] MEDS: ipratropium-albuterol 3 mL Neb INHALATION (08:01)
[2023-05-30] MEDS: budesonide 0.5 mg/2 mL Neb INHALATION (08:01)
[2023-05-30] MEDS: aspirin 300 mg Supp PR (08:52)
[2023-05-30] MEDS: azithromycin 500 MG in sodium chloride 0.9% 250 ML 250 MG IV (08:52)
--- NOTE | 2023-05-30 09:09 | PC.OT ---
OT tx attempted at this time. Pt lying in bed on bipap. Physician, nursing and at bedside reviewing pts medications and discussing pts needs. OT to attempt tx at later time if possible.
--- NOTE | 2023-05-30 11:11 | P.CONIM_ITS ---
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 Patient was readmitted to the hospital on 05/26/2023 due to worsening left-sided weakness, inability to walk.. He was also found to have pneumonia possibly aspiration . Patient continued to have worsening mental status since admission, currently not following commands. He continues to have fevers with elevated WBC count. Nephrology consultation was requested for management of hypernatremia. Patient currently is n.p.o., He was also noted to have elevated troponin, echocardiogram was showed normal ejection fraction. Review of Systems 2 Narrative: cannot obtain from pt Medications/Allergies Home Medications Medication Instructions Recorded Confirmed Last Taken Type metoprolol tartrate 50 mg tablet 50 mg PO BID 06/19/19 05/27/23 05/11/23 History telmisartan 80 mg tablet 80 mg PO DAILY #90 tabs 11/23/22 05/27/23 05/11/23 Rx furosemide 20 mg tablet (Lasix) See Rx Instructions .Route .COMPLEX 12/15/22 05/27/23 05/11/23 History amlodipine 5 mg tablet 5 mg PO DAILY #90 tabs 12/16/22 05/27/23 05/11/23 Rx multivitamin 1 tab PO DAILY 02/14/23 05/27/23 05/11/23 History cetirizine 10 mg capsule (Zyrtec) 10 mg PO BID 02/21/23 05/27/23 05/11/23 History acetaminophen 325 mg capsule 325 mg PO QID PRN Pain 05/11/23 05/27/23 05/11/23 History apixaban 5 mg (74 tabs) tablets in See Rx Instructions PO PER PKG DIR 05/16/23 05/27/23 Unknown Rx a dose pack (Eliquis DVT-PE Treat #74 ea 30D Start) benzonatate 200 mg capsule 200 mg PO TID #90 caps 05/16/23 05/27/23 Unknown Rx lorazepam 1 mg tablet 0.5 - 1 mg (0.5 - 1 x 1 mg) PO Q6H 05/17/23 05/27/23 Unknown Rx PRN Severe Nausea #30 tabs potassium chloride 10 mEq 10 meq PO BID #60 tabs 05/17/23 05/27/23 Unknown Rx tablet,extended release atorvastatin 20 mg tablet 20 mg PO DAILY 05/27/23 05/27/23 Unknown History Allergies Allergy/AdvReac Type Severity Reaction Status Date / Time paclitaxel Allergy Severe ALGY-Hives Verified 05/11/23 10:21 Current Medications Generic Name Dose Route Start Last Admin Trade Name Freq PRN Reason Stop Dose Admin Albuterol/Ipratropium 3 ml 05/27/23 01:14 05/30/23 08:01 Ipratropium-Albuterol 3 Ml Neb INHALATION 3 ml Q6H.RESP PRN Administration SHORTNESS OF BREATH Aspirin 300 mg 05/27/23 11:40 05/30/23 08:52 Aspirin 300 Mg Supp RI 300 mg DAILY BABAK Administration Atorvastatin Calcium 40 mg 05/26/23 21:00 05/26/23 20:47 Atorvastatin 40 Mg Tablet PO Not Given BEDTIME BABAK Budesonide 0.5 mg 05/26/23 20:00 05/30/23 08:01 Budesonide 0.5 Mg/2 Ml Neb INHALATION 0.5 mg BID.RESPIRATORY BABAK Administration Enoxaparin Sodium 120 mg 05/26/23 15:45 05/30/23 02:45 Enoxaparin 120 Mg/0.8 Ml Syringe SUBCUT 120 mg Q12H BABAK Administration Hydralazine HCl 10 mg 05/26/23 15:16 05/29/23 22:51 Hydralazine 20 Mg/Ml Inj 1 Ml IVP 10 mg Q4H PRN Administration SBP more than 160 mmhg Azithromycin 500 mg/ Sodium 250 mls @ 250 mls/hr 05/27/23 09:00 05/30/23 08:52 Chloride IV 250 mls/hr DAILY BABAK Administration Protocol Piperacillin Sod/Tazobactam 50 mls @ 12.5 mls/hr 05/26/23 17:30 05/30/23 10:22 Sod 3.375 gm/ Sodium Chloride IV 12.5 mls/hr Q8H BABAK Administration Vancomycin/PEG/NADA/Lysine/Water 1,250 mg in 250 mls @ 250 mls/hr 05/26/23 17:30 05/30/23 04:46 Vancocin IV Infused Q12H BABAK Infusion Amiodarone HCl/Dextrose 360 mg in 200 mls @ 0 mls/hr 05/29/23 23:37 05/30/23 05:38 Nexterone IV 0.5 mg/min .Q0M BABAK 16.67 mls/hr Titration Protocol Per Protocol Metoprolol Tartrate 5 mg 05/27/23 16:00 05/30/23 08:51 Metoprolol Tartrate 1 Mg/1 Ml Sdv 5 Ml IVP 5 mg Q4H BABAK Administration Morphine Sulfate 2 mg 05/26/23 14:46 05/29/23 22:01 Morphine 4 Mg/Ml Sdv 1 Ml IVP 2 mg Q4H PRN Administration SEVERE PAIN Pantoprazole Sodium 40 mg 05/26/23 15:00 05/29/23 15:54 Pantoprazole 40 Mg Sdv IVP 40 mg Q24H BABAK Administration PFSH Acute 2 PFSH: Medical History (Updated 05/30/23 @ 14:44 by Josie Camara MD) Acute thromboembolic cerebrovascular accident GERD (gastroesophageal reflux disease) Non-small cell lung cancer Diabetes Hypertension Surgical History Port-A-Cath in place History of bronchoscopy (01/03/23) History of appendectomy Family History Mother Anesthesia complication Cancer Sister Anesthesia complication Cancer Father Cancer Hypertension Denies family history of Diabetes CAD (coronary artery disease) Clotting disorder Dementia Hyperlipidemia Psychiatric illness Chronic kidney disease (CKD) Suicide Bleeding disorder Family history of premature coronary artery disease Lung disease Stroke Social History (Updated 05/16/23 @ 12:45 by Holden Oneil) Smoking and tobacco/nicotine status: former use of tobacco/nicotine Quit status (tobacco/nicotine): has quit using Year quit tobacco: 2007 Former quit date comment: tobaccco use overall 30 years Second hand smoke exposure: No Alcohol intake: current Vitals/I&O/Wt Last Vital Signs Temp 99.2 F 05/30/23 08:00 Pulse 101 H 05/30/23 11:02 Resp 29 H 05/30/23 08:00 BP 156/104 05/30/23 08:00 Pulse Ox 97 05/30/23 11:02 O2 Del Method BiPAP 05/30/23 08:00 FiO2 35 05/30/23 11:02 05/29/23 05/30/23 05/30/23 22:59 06:59 14:59 Intake Total 300 / 1510 1628.316 / 3138.316 0 / 0 Output Total 420 / 420 1999 Balance -120 / 1090 1628.316 / 2718.316 -1999 Weight last 48 hrs Weight 121.608 kg Weight 122.47 kg Weight 122.47 kg Physical Exam 2 Narrative: lethargic Data 05/30/23 00:39 05/30/23 00:39 A&P Assessment and plan (1) Hypernatremia: Plan 1. Hypernatremia: Due to free water deficit in the setting of stroke and poor p.o. intake. Will start him on gentle IV fluids-D5W at 30 cc an hour . Also requested pharmacy to change mixing solutions for antibiotics and amiodarone to the D5W instead of normal saline. 2. Sepsis secondary to aspiration pneumonia 3. Stroke with left-sided weakness, lethargy, 4. History of hypertension 5. History of adenocarcinoma of the lung 6. Anasarca, likely third spacing in the setting of low albumin-will give IV albumin, once hypernatremia corrected we will start diuresis Patient evaluated using audiovisual cart. Time spent 40 minutes Coding Level of Care Code Acute Code for Chg Fwd Diagnoses Hypernatremia E87.0
--- NOTE | 2023-05-30 11:49 | PC.NURSE ---
will wiggle right and left toes on command this morning.does not squeeze left or right fingers to command
[2023-05-30] MEDS: morphine 4 mg/mL SDV 1 mL 2 MG IVP (12:05)
[2023-05-30] MEDS: dextrose 5% 1,000 ML 30 ML IV (12:07)
--- NOTE | 2023-05-30 12:58 | CT_ITS ---
WS: [id number] CT CHEST, ABDOMEN AND PELVIS NONCONTRAST. HISTORY: Recurrent fevers. TECHNIQUE: Contiguous 5 mm axial imaging performed through the chest, abdomen and pelvis without IV c ontrast, oral contrast has not been provided. Coronal and sagittal reformats chest. Coronal and sagit giovanni reformats through the abdomen and pelvis. All CT scans at [facility] use at least one of these dose optimization techniques: automated exposure control; mA and/or kV adjustment per patient s ize (includes targeted exams where dose is matched to clinical indication); or iterative reconstructi on. CONTRAST: None DLP: 1260.62 mGy.cm COMPARISON: Chest CT 05/26/[address]: Lung lung volumes and poor inspiration. Breathing motion artifact and hazy attenuation. Ana Maria pect mild fluid overload and interstitial edema. Subsegmental atelectasis at the RIGHT lung base with small, tiny RIGHT pleural effusion. There is additional RIGHT perihilar atelectasis. Moderate cardio megaly. Normal size aorta with mild atherosclerosis. Normal sized pulmonary artery. RIGHT central allen e. Mild gynecomastia. Soft tissue anasarca. Abdomen CT: Motion artifact. Normal size liver and spleen. Variable density in the spleen is probably due to the patient's arms. Negative gallbladder and adrenal glands. Negative pancreas. No renal obst ruction. Mild atherosclerosis aorta. There are a few small foci of air within the abdominal wall prob ably from injection sites. There is also mild soft tissue anasarca. No GI tract obstruction. There is mild perinephric stranding, slightly greater LEFT kidney. No submuc osal edema or obstruction. No wall thickening or colitis. No appendicitis. Pelvic CT: Tiny amount of free fluid in the RIGHT pelvis. Sandhu catheter in the urinary bladder. Urin des bladder is nondistended. No osseous destruction is identified. IMPRESSION: 1. Subsegmental atelectasis at the RIGHT lung base with a very tiny effusion. 2. Study is overall compromised by breathing motion artifact. 3. No GI tract obstruction or submucosal edema or pericolonic inflammation. 4. Very tiny amount of free fluid in the RIGHT pelvis. 5. Soft tissue anasarca and edema. 6. No GI tract obstruction. 7. Very minimal bilateral perinephric stranding, slightly greater along the lower pole of the LEFT k [place]. No obstruction. Correlate for urinary tract infection.
--- NOTE | 2023-05-30 14:12 | PM.PN ---
Subjective Subjective: seen this am overnight events acknowledged pt went into afib rvr again was given amio bolus and started on drip also got 40 lasix x1 bnp elevated at 4000 seen this am at bedside patient still not following commands wbc count [id number] still having fevers Vitals/I&O/Wt Last Vital Signs Temp 99.8 F H 05/30/23 13:17 Pulse 100 05/30/23 13:17 Resp 32 H 05/30/23 13:17 BP 163/93 05/30/23 13:17 Pulse Ox 97 05/30/23 13:17 O2 Del Method BiPAP 05/30/23 08:00 FiO2 35 05/30/23 11:02 05/29/23 05/30/23 05/30/23 22:59 06:59 14:59 Intake Total 300 / 1510 1628.316 / 3138.316 271.684 / 271.684 Output Total 420 / 420 1999 / 1999 Balance -120 / 1090 1628.316 / 2718.316 -1728.316 / -1728.316 Weight last 48 hrs Weight 121.608 kg Weight 122.47 kg Weight 122.47 kg Physical Exam Narrative: General: Patient appears resting comfortably, unable to follow any commands. HEENT: PERRLA. Chest: Very mild bibasilar crackles, somewhat tachypneic. CVS: RRR. Abdomen: Soft, nontender, no organomegaly, bowel sounds present. Neuro: Facial asymmetry with droop to the side. Unable to follow commands. Unable to assess neuroexam. Data 05/30/23 00:39 05/30/23 00:39 A&P Assessment and plan (1) Sepsis: Ruled in on admission because of tachycardia, leukocytosis, end-organ damage with SUDEEP. Source of infection most likely pneumonia though further workup is needed. Appreciate CT chest results. Follow-up blood cultures, respiratory viral panel negative, MRSA swab pending, urinalysis negative for nitrite but trace leuk esterase. Follow-up urine culture. Urine Legionella, bacterial antigen negative. stop iv fluids repeat blood cultures today continues to spike fevers there may be central component vs infection will check ct chest abd pelvis (2) Acute thromboembolic cerebrovascular accident: As per MRI done on 05/12. Appreciate CTA head and neck done in [place]. Echocardiogram seems to have normal EF without regional wall motion abnormality and grade 1 diastolic dysfunction, normal RV functions. Continue with full dose Lovenox 1 mg/kg body weight every 12 hourly. (3) Non-ST elevation DE (NSTEMI): Baseline troponin elevated with a positive delta troponin. Continue with full dose Lovenox. Appreciate echocardiogram for normal EF without regional wall motion normality. Rectal aspirin. Will switch to IV metoprolol 5 mg every 4 hours scheduled. If patient's mentation improves might benefit from stress test. (4) Pneumonia: High likelihood of aspiration pneumonia. Does have lung cancer. DuoNebs every 6 hour, Pulmicort twice daily. Antibiotics as above. (5) Adenocarcinoma of lower lobe of right lung: Follows up with oncology as an outpatient. On radiation therapy. (6) Hypertension: Patient has had a stroke for over 9 days ago. Goal blood pressure less than 140/90 mmHg. IV metoprolol 5 mg every 4 scheduled. To be held for heart rate of less than 70 bpm. IV hydralazine 10 mg every 6 hours as needed for systolic blood pressure of more than 160 mmHg. (7) Diabetes: A1c normal. Hypoglycemia protocol. Not on any antidiabetic medication as an outpatient. Will start on insulin sliding scale as per A1c. (8) Atrial fibrillation: (9) Dyspnea on exertion: (10) Non-small cell lung cancer: Qualifiers: Laterality: right Qualified Code(s): C34.91 - Malignant neoplasm of unspecified part of right bronchus or lung (11) Right pulmonary lesion: (12) Hilar lymphadenopathy: Plan PLAN FOR TODAY: Continues to have tachypnea. Will order labs for today., procalcitonin 0.13, viral panel negative. Repeat CXR today. Recheck blood cultures and lactic acid. Blood gas from yesterday morning shows respiratory alkalosis. Will continue with broad-spectrum antibiotics at this time. repeat bcx fever may be due to central cause? Platelets have been low since admission. Baseline is well within normal range. HIT panel pending at this time RAAT, O2 protocol. Dysphagia diet per [employer]. patient unable to follow any commands will consult neurology. dr hernández to see patient today. continue on lasix 40 iv daily consult nephrology hypernatremia noted. na 156 MRI from may 27, 2023 Extensive multifocal bilateral cerebral and cerebellar acute/subacute infarcts. Noncontrast technique precludes further evaluation for underlying neoplastic component given provided history. Will check head CT for possible hemmorhagic conversion? #Atrial fibrillation with RVR Check magnesium and potassium. Potassium to remain above 4 and magnesium above 2 continue amio drip at this time pt on lovenox therapeutic dose Discussion with spouse. He is to remain a full code at this time. Patient is at high risk for sudden clinical deterioration, and his prognosis is severely guarded. i dont not see chance of meaningful recovery with this patient. i have discussed with patients as well. her sister in [place] [facility] [place] meeting. Feeding tube is an option however he carries a very poor prognosis. will attempt another goals of care discussion with family today. Code Status: Full IVF: stop iv fluids DVT PPx: Lovenox GI PPx: Protonix ABx: Azithromycin, Zosyn, vancomycin Diet: Dysphagia diet. Discharge plan: SNF when appropriate. Attestations Medical Necessity Statement*: Requires further hospitalization for management of non-ST elevation DE, sepsis secondary to aspiration pneumonia in a patient with thromboembolic stroke Diagnoses Sepsis A41.9 Acute thromboembolic cerebrovascular accident I63.9 Non-ST elevation DE (NSTEMI) I21.4 Pneumonia J18.9 Adenocarcinoma of lower lobe of right lung C34.31 Hypertension I10 Diabetes E11.9 Atrial fibrillation I48.91 Dyspnea on exertion R06.09 Non-small cell cancer of right lung C34.91 Laterality: right Right pulmonary lesion J98.4 Hilar lymphadenopathy R59.0
--- NOTE | 2023-05-30 14:14 | PM.CONSULT ---
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 At his visit with Dr. 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 He had limited activity. ECOG score was 2. He was complaining of numbness in his tongue and numbness in both hands. He was involved with radiation and chemotherapy. 05/11/2023 he had slurred speech and facial drooping and MRI scan showed findings suspicious for multiple tiny punctate foci of acute to subacute ischemia and of concern for central embolic origin but metastatic disease not excluded. For that reason he was started on apixaban and hold was put on chemotherapy. He was treated with several doses of radiation for mediastinal lymphadenopathy (of recent development). He then presented 05/26/2023 with worsening weakness. His symptoms were progressive over 9 days to the point that he was no longer able to stand up or walk and he was not responding. He was Taken to [place] by EMS and then transferred to [facility]. 05/30/2023 CT chest, abdomen and pelvis 1. Subsegmental atelectasis at the RIGHT lung base with a very tiny effusion. 2. Study is overall compromised by breathing motion artifact. 3. No GI tract obstruction or submucosal edema or pericolonic inflammation. 4. Very tiny amount of free fluid in the RIGHT pelvis. 5. Soft tissue anasarca and edema. 6. No GI tract obstruction. 7. Very minimal bilateral perinephric stranding, slightly greater along the lower pole of the LEFT kidney. No obstruction. Correlate for urinary tract infection. Dictated By: Mitali Wu DO MRI brain without contrast 05/27/2023 Extensive multifocal bilateral cerebral and cerebellar acute/subacute infarcts. Noncontrast technique precludes further evaluation for underlying neoplastic component given provided history. Dictated By: Santosh Aguirre MD MRI brain 05/12/2023 1. Multiple scattered punctate foci of restricted diffusion involving both hemispheres and LEFT cerebellum most compatible with tiny punctate foci of acute to subacute ischemia. A few of these areas demonstrate tiny amount of enhancement and metastatic disease not entirely excluded. Recommend 6 to 8-week interval follow-up to assess evolution 2. Consider central embolic etiology considering multiple vascular territories and posterior fossa involvement. 3. Mild small vessel changes. Mild to moderate parenchymal volume loss. 4. Benign RIGHT middle cranial fossa arachnoid cyst. 5. No significant mass effect or midline shift. 6. Minimal edema associated with the larger suspected areas of ischemia. Dictated By: Flo Ireland MD Echocardiogram 05/27/2023 final report pending but atria unremarkable with normal bubble study, structurally normal aortic valve, structurally normal mitral valve. Grade 1 diastolic dysfunction. Review of Systems Narrative: His has felt that he was feeling stressed. She felt that he was in pain today. He has not been able to communicate with anyone since he arrived here. He has been spiking fevers to 101 degrees with no explanation. He has had respiratory distress and requires BiPAP. Medications/Allergies Home Medications Medication Instructions Recorded Confirmed Last Taken Type metoprolol tartrate 50 mg tablet 50 mg PO BID 06/19/19 05/27/23 05/11/23 History telmisartan 80 mg tablet 80 mg PO DAILY #90 tabs 11/23/22 05/27/23 05/11/23 Rx furosemide 20 mg tablet (Lasix) See Rx Instructions .Route .COMPLEX 12/15/22 05/27/23 05/11/23 History amlodipine 5 mg tablet 5 mg PO DAILY #90 tabs 12/16/22 05/27/23 05/11/23 Rx multivitamin 1 tab PO DAILY 02/14/23 05/27/23 05/11/23 History cetirizine 10 mg capsule (Zyrtec) 10 mg PO BID 02/21/23 05/27/23 05/11/23 History acetaminophen 325 mg capsule 325 mg PO QID PRN Pain 05/11/23 05/27/23 05/11/23 History apixaban 5 mg (74 tabs) tablets in See Rx Instructions PO PER PKG DIR 05/16/23 05/27/23 Unknown Rx a dose pack (Eliquis DVT-PE Treat #74 ea 30D Start) benzonatate 200 mg capsule 200 mg PO TID #90 caps 05/16/23 05/27/23 Unknown Rx lorazepam 1 mg tablet 0.5 - 1 mg (0.5 - 1 x 1 mg) PO Q6H 05/17/23 05/27/23 Unknown Rx PRN Severe Nausea #30 tabs potassium chloride 10 mEq 10 meq PO BID #60 tabs 05/17/23 05/27/23 Unknown Rx tablet,extended release atorvastatin 20 mg tablet 20 mg PO DAILY 05/27/23 05/27/23 Unknown History Allergies Allergy/AdvReac Type Severity Reaction Status Date / Time paclitaxel Allergy Severe ALGY-Hives Verified 05/11/23 10:21 Current Medications Generic Name Dose Route Start Last Admin Trade Name Freq PRN Reason Stop Dose Admin Albuterol/Ipratropium 3 ml 05/27/23 01:14 05/30/23 08:01 Ipratropium-Albuterol 3 Ml Neb INHALATION 3 ml Q6H.RESP PRN Administration SHORTNESS OF BREATH Aspirin 300 mg 05/27/23 11:40 05/30/23 08:52 Aspirin 300 Mg Supp AK 300 mg DAILY BABAK Administration Atorvastatin Calcium 40 mg 05/26/23 21:00 05/26/23 20:47 Atorvastatin 40 Mg Tablet PO Not Given BEDTIME BABAK Budesonide 0.5 mg 05/26/23 20:00 05/30/23 08:01 Budesonide 0.5 Mg/2 Ml Neb INHALATION 0.5 mg BID.RESPIRATORY BABAK Administration Enoxaparin Sodium 120 mg 05/26/23 15:45 05/30/23 02:45 Enoxaparin 120 Mg/0.8 Ml Syringe SUBCUT 120 mg Q12H BABAK Administration Hydralazine HCl 10 mg 05/26/23 15:16 05/29/23 22:51 Hydralazine 20 Mg/Ml Inj 1 Ml IVP 10 mg Q4H PRN Administration SBP more than 160 mmhg Azithromycin 500 mg/ Sodium 250 mls @ 250 mls/hr 05/27/23 09:00 05/30/23 11:43 Chloride IV Infused DAILY BABAK Infusion Protocol Piperacillin Sod/Tazobactam 50 mls @ 12.5 mls/hr 05/26/23 17:30 05/30/23 10:22 Sod 3.375 gm/ Sodium Chloride IV 12.5 mls/hr Q8H BABAK Administration Vancomycin/PEG/NADA/Lysine/Water 1,250 mg in 250 mls @ 250 mls/hr 05/26/23 17:30 05/30/23 04:46 Vancocin IV Infused Q12H BABAK Infusion Amiodarone HCl/Dextrose 360 mg in 200 mls @ 0 mls/hr 05/29/23 23:37 05/30/23 11:43 Nexterone IV Infused .Q0M BABAK Titration Protocol Per Protocol Dextrose 1,000 mls @ 30 mls/hr 05/30/23 11:15 05/30/23 12:07 D5w IV 30 mls/hr .Q24H BABAK Administration Metoprolol Tartrate 5 mg 05/27/23 16:00 05/30/23 08:51 Metoprolol Tartrate 1 Mg/1 Ml Sdv 5 Ml IVP 5 mg Q4H BABAK Administration Morphine Sulfate 2 mg 05/26/23 14:46 05/30/23 12:05 Morphine 4 Mg/Ml Sdv 1 Ml IVP 2 mg Q4H PRN Administration SEVERE PAIN Pantoprazole Sodium 40 mg 05/26/23 15:00 05/29/23 15:54 Pantoprazole 40 Mg Sdv IVP 40 mg Q24H BABAK Administration PFSH Acute PFSH: Medical History (Updated 05/30/23 @ 15:29 by Alysha Adan MD) Acute thromboembolic cerebrovascular accident GERD (gastroesophageal reflux disease) Non-small cell lung cancer Diabetes Hypertension Surgical History Port-A-Cath in place History of bronchoscopy (01/03/23) History of appendectomy Family History Mother Anesthesia complication Cancer Sister Anesthesia complication Cancer Father Cancer Hypertension Denies family history of Diabetes CAD (coronary artery disease) Clotting disorder Dementia Hyperlipidemia Psychiatric illness Chronic kidney disease (CKD) Suicide Bleeding disorder Family history of premature coronary artery disease Lung disease Stroke Social History (Updated 05/16/23 @ 12:45 by Holden Oneil) Smoking and tobacco/nicotine status: former use of tobacco/nicotine Quit status (tobacco/nicotine): has quit using Year quit tobacco: 2007 Former quit date comment: tobaccco use overall 30 years Second hand smoke exposure: No Alcohol intake: current Vitals/I&O/Wt Last Vital Signs Temp 99.8 F H 05/30/23 13:17 Pulse 100 01/16/24 13:17 Resp 32 H 05/30/23 13:17 BP 163/93 05/30/23 13:17 Pulse Ox 97 05/30/23 13:17 O2 Del Method BiPAP 05/30/23 08:00 FiO2 35 05/30/23 11:02 05/29/23 05/30/23 05/30/23 22:59 06:59 14:59 Intake Total 300 / 1510 1628.316 / 3138.316 271.684 / 271.684 Output Total 420 / 420 1999 Balance -120 / 1090 1628.316 / 2718.316 -1728.316 / -1728.316 Weight last 48 hrs Weight 268 lb 1.6 oz Weight 270 lb Weight 270 lb Physical Exam Narrative: General: Morbidly obese middle-aged man on BiPAP. He is laying quietly in the bed propped up on his right side. Mental status exam: He follows no commands. He has a motor equipment captain reflex in the right hand that is easily mistaken for grasping in response to command, but he does not voluntarily move the fingers to command. He does not follow commands. He has strong right gaze preference. He has no movement of the left arm. He has voluntary appearing withdrawal of both feet. Cranial nerves: He has strong gaze to the right and I cannot overcome that. Tongue appears to be midline in the mouth. He appears to be managing his secretions. Motor: He has clasp knife spasticity in the right hand with grasp reflex. No response in the left upper extremity including no withdrawal from deep nailbed pressure in the left hand and he did not appear uncomfortable when I applied strong pressure to his nailbed on the left. He did not respond to nailbed pressure on the right either. In the legs, he appears to withdraw from a tickling stimulus (plantar stimulation with the tongue blade) and wiggle his toes restlessly. It was hard to appreciate whether this was a voluntary withdrawal as he is constantly moving his feet. There was a tremulous movement in the right hand that was repetitive. Toes upgoing bilaterally. HEENT no rash. Conjunctiva not injected and sclera nonicteric. Neck: He has BiPAP in place. He has a strong short neck and I could not appreciate whether there was rigidity. Chest: Clear to auscultation Cardiovascular: S1 and S2 normal without murmur or gallop. Extremities: No rash. No deformities. MRI of the brain from 3 days ago shows what appears to be multiple emboli in multiple vascular distributions with showers of end artery appearing lesions throughout and strongly suggestive of multiple emboli. Data 05/30/23 00:39 05/30/23 00:39 A&P Assessment and plan (1) Acute ischemic multifocal multiple vascular territories stroke: 62-year-old man with adenocarcinoma of the lung status post chemo and radiation who presents with multiple strokes in multiple vascular distributions with rapid development of multiple neurologic deficits, currently in a coma with strong right gaze preference and left-sided weakness suggesting that even since his MRI 3 days ago he has developed progressive pathology in the right hemisphere. 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 Treating him with apixaban at the beginning of this was the best that could be done to try to prevent further thromboembolism but unfortunately he has gone on to infarct most of his brain. His echocardiogram did not show any obvious vegetations. Plan on CT angiogram and repeat CT of the head stat to rule out hemorrhage. Consider obtaining spinal fluid and a brief treatment with high-dose steroids (i.e. Solu-Medrol 1 g a day for 3 days). Discussed with the patient's , [id number] and [id number] along with Dr. Mckeon in a prolonged conference at the bedside. Images were reviewed with the family and I explained to them that the prognosis is poor for meaningful survival. Repeat CT scan of the head does not show hemorrhage and there is no change in the appearance of the left and right hemisphere lucencies consistent with left and right middle cerebral artery strokes, the left primarily in watershed pattern. CT angiogram was performed with difficulty because the patient lost his IV site and had to be taken back to the floor and returned back to the CAT scan suite. I reviewed his CAT scan and then observed his CTA while he was being gone and help transfer him back to the first floor. There is a big change in his examination during that time. He has right gaze preference went away and his eyes are now at the midline. He is still not following commands and will not regard the examiner. He is moving the right arm spontaneously but still not moving the left arm at all. He is moving both feet spontaneously though the right more vigorously than the left. Note that his major ischemia his left hemisphere while his clinical exam suggests right hemisphere dysfunction more than left. He has repetitive tremulous movements in the right foot and sometimes in the right hand. I discussed with Dr. Mckeon that the patient has had continued fevers without explanation and despite a antibiotic treatment. Plan on obtaining spinal fluid if at all possible but the patient's requirement for anticoagulation and his extreme size will make him very challenging to obtain spinal fluid. Overall his prognosis is poor but I am recommending going ahead with PEG tube because of the fluctuation in his mental status and because his cancer diagnosis was under fair control. (2) Adenocarcinoma of lower lobe of right lung: (3) Non-ST elevation NE (NSTEMI): This is further evidence of a hypercoagulable state (4) Atrial fibrillation: Consult Attestations Medical Necessity Statement: Medically and neurologically unstable and requires hospitalization Time Spent in Patient Care: 120 minutes Coding Level of Care Code Acute Code for [facility] Diagnoses Acute ischemic multifocal multiple vascular territories stroke I63.89 Adenocarcinoma of lower lobe of right lung C34.31 Non-ST elevation NE (NSTEMI) I21.4 Atrial fibrillation I48.91
--- NOTE | 2023-05-30 15:04 | CTR_ITS ---
PROCEDURE INFORMATION: Exam: CT Head Without Contrast Exam date and time: 05/30/2023 4:07 PM Age: 62 years old Clinical indication: Right lung CA. Altered mental status/memory loss; Additional info: Stroke, hemmorhagic conversion? ? ? TECHNIQUE: Imaging protocol: Computed tomography of the head without contrast. Radiation optimization: All CT scans at this facility use at least one of these dose optimization techniques: automated exposure control; mA and/or kV adjustment per patient size (includes targeted exams where dose is matched to clinical indication); or iterative reconstruction. COMPARISON: Head and neck CTA 05/26/23, MR head wo con* [id number] 05/27/2023 2:53 PM RADIATION DOSE METRICS: Total DLP (mGy-cm): 699 FINDINGS: Tubes, catheters and devices: Right IJ Port-A-Cath is evident on surgical assist image. Brain: Mild-moderate and mild, wedge-shaped, low attenuation areas with higher density than CSF spanning ricci and white matter of left anterior frontal lobe, frontal operculum, insula, and external capsule in distribution of MCA (ASPECTS 7), left posterior parietal lobe in distribution of ELIZABETH, and to lesser extent, right mid frontal lobe and benitez radiata in distribution of MCA (ASPECTS 9) reflect evolving, subacute infarcts. < 6 mm, oval, low attenuation lesion with higher density than CSF at anterior limb of right internal capsule is consistent with subacute, lacunar infarct. Other, acute infarcts on MRI 05/27/23 are not well visualized on CT. No evidence of hemorrhagic transformation. Cerebral ventricles: Ventricles along with sulci are mild-moderately enlarged, reflecting cerebral volume loss. Paranasal sinuses: Several, bilateral ethmoid air cells are opacified or partially opacified. Bilateral middle nikko are incidentally aerated (variant). Air-fluid level within left middle nikko suggests acute sinusitis. Mucosa of bilateral maxillary and sphenoid sinuses is mildly thickened. Mastoid air cells: Visualized mastoid air cells are well aerated. Bones/joints: Unremarkable. No acute fracture. Soft tissues: Unremarkable. Vasculature: Right > left cavernous carotid arteries are mildly calcified. CT/CT head wo con* [id number] IMPRESSION: 1. Evolving, subacute infarcts at left anterior frontal lobe, frontal operculum, insula, and external capsule, left posterior parietal lobe, and to lesser extent, right mid frontal lobe and benitez radiata, without hemorrhagic transformation. Subacute, < 6 mm, lacunar infarct at anterior limb of right internal capsule. Given distribution, above are suspicious for embolic infarcts. 2. Mild-moderate cerebral volume loss. 3. Acute, bilateral ethmoid sinusitis. Mild, chronic, bilateral maxillary and sphenoid sinusitis. 4. Atherosclerosis.
[2023-05-30] MEDS: iohexol 350 mg/mL 500 mL Btl (per mL) IV (16:11)
--- NOTE | 2023-05-30 16:42 | CTR_ITS ---
PROCEDURE INFORMATION: Exam: CTA Head With Contrast, Arteriography Exam date and time: 05/30/2023 5:30 PM Age: 62 years old Clinical indication: Other: Right lung CA. AMS; Additional info: CVA TECHNIQUE: Imaging protocol: Computed tomographic angiography of the head with contrast. Exam focused on the arteries. 3D rendering (Not supervised by radiologist): MIP and/or 3D reconstructed images were created by the technologist. Radiation optimization: All CT scans at this facility use at least one of these dose optimization techniques: automated exposure control; mA and/or kV adjustment per patient size (includes targeted exams where dose is matched to clinical indication); or iterative reconstruction. Contrast material: OMNI 350; Contrast volume: 100 ml; Contrast route: INTRAVENOUS (IV); COMPARISON: 1. CT angio headneck* [id number] 05/26/2023 9:22 AM 2. Head MRI 05/26/23 RADIATION DOSE METRICS: Total DLP (mGy-cm): 560 FINDINGS: Tubes, catheters and devices: Right IJ Port-A-Cath is partially visualized. ANTERIOR CIRCULATION: Right internal carotid artery: Right > left cavernous carotid arteries are mildly calcified. Right middle cerebral artery: No occlusion or significant stenosis. No aneurysm. Right anterior cerebral artery: No occlusion or significant stenosis. No aneurysm. Left internal carotid artery: Right > left cavernous carotid arteries are mildly calcified. Left middle cerebral artery: No occlusion or significant stenosis. No aneurysm. Left anterior cerebral artery: No occlusion or significant stenosis. No aneurysm. POSTERIOR CIRCULATION: Right vertebral artery: No occlusion or significant stenosis. No aneurysm. Left vertebral artery: No occlusion or significant stenosis. No aneurysm. Basilar artery: No occlusion or significant stenosis. No aneurysm. Right posterior cerebral artery: No occlusion or significant stenosis. No aneurysm. Left posterior cerebral artery: No occlusion or significant stenosis. No aneurysm. Brain: Mild-moderate and mild, wedge-shaped, low attenuation areas with higher density than CSF spanning ricci and white matter of left anterior frontal lobe, frontal operculum, insula, and external capsule in distribution of MCA (ASPECTS 7), left posterior parietal lobe in distribution of ELIZABETH, and to lesser extent, right mid frontal lobe and benitez radiata in distribution of MCA (ASPECTS 9) reflect evolving, subacute infarcts. < 6 mm, oval, low attenuation lesion with higher density than CSF at anterior limb of right internal capsule is consistent with subacute, lacunar infarct. Other, acute infarcts on MRI 05/27/23 are not well visualized on CTA. No evidence of hemorrhagic transformation. < 3.9 cm, slightly lobulated, low attenuation (Hounsfield units 9), extra-axial fluid collection at anteromedial aspect of right middle cranial fossa is consistent with arachnoid cyst with correlated prior MRI. Cerebral ventricles: Ventricles along with sulci are mild-moderately enlarged, reflecting cerebral volume loss. Paranasal sinuses: Several, bilateral ethmoid air cells are opacified or partially opacified. Bilateral middle nikko are incidentally aerated (variant). Air-fluid level within left middle nikko suggests acute sinusitis. Mucosa of bilateral maxillary and sphenoid sinuses is mildly thickened. Bones/joints: < 5 mm, oval, well-defined, sclerotic lesion within T2 vertebral body is nonspecific. Degenerative disc and facet disease of several levels of cervical spine and degenerative disc disease of upper thoracic spine are present. There are mild osteoarthritis of bilateral sternoclavicular joints and moderate osteoarthritis of right acromioclavicular joint. Soft tissues: Unremarkable. PROCEDURE INFORMATION: Exam: CTA Neck With Contrast Exam date and time: 05/30/2023 5:30 PM Age: 62 years old Clinical indication: Other: Right lung CA. AMS; Additional info: CVA TECHNIQUE: Imaging protocol: Computed tomographic angiography of the neck with contrast. Exam focused on the cervical segments of the vasculature. 3D rendering (Not supervised by radiologist): MIP and/or 3D reconstructed images were created by the technologist. Radiation optimization: All CT scans at this facility use at least one of these dose optimization techniques: automated exposure control; mA and/or kV adjustment per patient size (includes targeted exams where dose is matched to clinical indication); or iterative reconstruction. Contrast material: OMNI 350; Contrast volume: 100 ml; Contrast route: INTRAVENOUS (IV); COMPARISON: CT angio headneck* [id number] 05/26/2023 9:22 AM RADIATION DOSE METRICS: Total DLP (mGy-cm): 560 FINDINGS: Tubes, catheters and devices: Right central and mid internal jugular vein is diminutive and poorly opacified, likely due to presence of Port-A-Cath. Right common carotid artery: Proximal common carotid artery is suboptimally visualized due to motion. Right internal carotid artery: No stenosis of the extracranial segment. No dissection or occlusion. Right external carotid artery: No occlusion or stenosis of the origin. Left common carotid artery: Proximal common carotid artery is suboptimally visualized due to motion. No stenosis. No dissection or occlusion. Left internal carotid artery: No stenosis of the extracranial segment. No dissection or occlusion. Left external carotid artery: No occlusion or stenosis of the origin. Right vertebral artery: Proximal vertebral artery is suboptimally visualized due to motion. Origin is mildly calcified. No stenosis. No dissection or occlusion. Left vertebral artery: Proximal vertebral artery is suboptimally visualized due to motion. No stenosis. No dissection or occlusion. Aorta: Visualized aorta is mildly calcified. Right brachiocephalic and bilateral proximal common carotid , subclavian, and vertebral arteries are suboptimally visualized due to motion. Lymph nodes: Several, < 1.4 cm in short axis, non and mildly enlarged, anterior mediastinal, AP window, bilateral paratracheal, precarinal, and left hilar lymph nodes are nonspecific. Soft tissues: Normal. No significant soft tissue swelling. Bones/joints: Moderate extravasated contrast within fat at right medial upper arm is partially visualized. Other findings: A few, < 5 mm, calcified granulomas are clustered at anterior right upper lobe. Mild, reticular opacities at dependent portions of bilateral upper lobes and superior left lower lobe likely reflect subsegmental atelectasis. CT/CT angio headneck* [id number] IMPRESSION: 1. Evolving, subacute infarcts at left anterior frontal lobe, frontal operculum, insula, and external capsule, left posterior parietal lobe, and to lesser extent, right mid frontal lobe and benitez radiata, without hemorrhagic transformation. Subacute, < 6 mm, lacunar infarct at anterior limb of right internal capsule. Given distribution, above are suspicious for embolic infarcts. 2. Mild-moderate cerebral volume loss. 3. Acute, bilateral ethmoid sinusitis. Mild, chronic, bilateral maxillary and sphenoid sinusitis. 4. Atherosclerosis. IMPRESSION: 1. Atherosclerosis. No stenosis or occlusion. 2. Several, < 1.4 cm in short axis, non and mildly enlarged, mediastinal and left hilar lymph nodes, nonspecific in nature. 3. Moderate extravasated contrast within fat at right medial upper arm. REFERENCES: NASCET CRITERIA. The degree of stenosis in the cervical segment of the internal carotid artery is based on NASCET criteria. Normal is no stenosis. Mild is less than 50% stenosis. Moderate is 50-69% stenosis. Severe is 70% to 99% stenosis. Total occlusion is no detectable patent lumen.
[2023-05-30] MEDS: pantoprazole 40 mg SDV IVP (17:10)
[2023-05-30] MEDS: vancomycin 1,250 MG/250 ML PIGGYBACK 250 MG IV (17:52)
--- NOTE | 2023-05-30 18:36 | PC.NURSE ---
to ct scan 3 times today.1st for ct of chest and pelvis.then for ct of head.unfortunetly the iv placed for procedure by ultrasound in right upper arm,blew during injection.power port non-coring needle was not the type for high psi injection...so port-a-cath needle switched out to one with a high psi factor using aseptic technique.cta completed.
[2023-05-30 20:22] LABS: Procalcitonin 0.13 ng/mL (0-0.5)
--- NOTE | 2023-05-30 22:38 | PC.NURSE ---
Family refusing ultrasound at this time. Requested that it be done in the morning.
[2023-05-31] VITALS (18 sets, daily range): BP systolic 137–176; BP diastolic 101–120; PULSE 81–165; RESP 19–34; TEMP 37–37.3; O2SAT 92–100; BMI 38.5
[2023-05-31] MEDS: metoprolol tartrate 1 mg/1 mL SDV 5 mL 5 MG IVP ×5 (01:05→21:09)
[2023-05-31] MEDS: piperacillin-tazobactam 3.375 GM in sodium chloride 0.9% (plus) 50 ML IV (02:30)
[2023-05-31] MEDS: enoxaparin 120 mg/0.8 mL Syringe SUBCUT ×2 (02:30→15:30)
--- NOTE | 2023-05-31 03:38 | PC.NURSE ---
Notified Dr. John of increase in patients heart rate. Given orders for 150 mg IV Amiodarone bolus.
[2023-05-31] MEDS: amiodarone 150 MG/100 ML PREMIX 400 MG IV (03:54)
[2023-05-31 04:05] LABS: Basophils % 0.3 %; Eosinophils # 0.2 10^3/uL (0.0-0.8); Eosinophils % 2.3 %; Lymphocytes # 0.6 10^3/uL (0.8-4.8); Lymphocytes % 5.3 %; Mean Corpuscular HGB Conc 30.2 g/dL (30-55); Mean Corpuscular Hemoglobin 29.4 pg (27-33); Mean Corpuscular Volume 97.3 fl (82-101); Monocytes # 1.1 10^3/uL (0.2-0.9); Monocytes % 10.1 %; Neutrophils # 8.67 10^3/uL (1.8-7.7); Neutrophils % 81.4 %; Nucleated Red Blood Cells % 0 %; Platelet Count 159 10^3/cmm (157-399); Red Blood Count 4.42 10^6/uL (3.85-5.65); Red Cell Distribution Width 14.6 % (12.1-15.1); White Blood Count 10.63 10^3/uL (3.29-11.43)
[2023-05-31 04:25] LABS: Anion Gap 15.4 (5-19); Blood Urea Nitrogen 20 mg/dL (8-23); Carbon Dioxide 26 mmol/L (22-29); Chloride 123 mmol/L (98-107); Glomerular Filtration Rate 51.7 mL/min (90-130); Glucose 98 mg/dL (65-115); Magnesium 2.5 mg/dL (1.7-2.3); Osmolality Calculated 335 mOsm/kg (285-295); Potassium 3.4 mmol/L (3.5-5.1)
[2023-05-31 04:33] LABS: Sodium 161 mmol/L (136-145)
[2023-05-31] MEDS: vancomycin 1,250 MG/250 ML PIGGYBACK 250 MG IV ×2 (05:35→17:57)
[2023-05-31] MEDS: ipratropium-albuterol 3 mL Neb INHALATION ×2 (07:19→20:15)
[2023-05-31] MEDS: budesonide 0.5 mg/2 mL Neb INHALATION ×2 (07:19→20:15)
[2023-05-31 08:17] LABS: Erythrocyte Sedimentation Rate 58 mm/hr (0-10)
[2023-05-31 08:34] LABS: C Reactive Protein 78.5 mg/L (0.0-4.9)
--- NOTE | 2023-05-31 08:41 | USCV_ITS ---
Syd Gibbs Age: 62 Gender: M : 1960 Exam Date: 05/31/2023 08:48 Ordering Phys: Juani Mckeon MD Technologist: Exam Location: [facility] [place]_ Indication: pe PROCEDURES: The venous duplex Doppler examination of both lower extremities was performed in the standard fashion. The following venous structures were evaluated: common femoral vein, profunda vein, proximal portion of the greater saphenous vein, superficial femoral vein, and the popliteal vein. In addition, the posterior tibial and peroneal trunk were evaluated. FINDINGS: Normal 2-D Doppler and augmentation and compressibility throughout the lower extremity venous structures. Additional imaging through the proximal calf veins also reveals no thrombus. Limited evaluation of the greater saphenous vein is patent with no thrombus. CONCLUSIONS No DVT bilateral lower extremities. Dr. Mitali Wu DO (Electronically Signed) Final Date: 31 May 2023 09:58 S
[2023-05-31 08:49] LABS: HIV 1 & 2 Antibody Non-Reactive (Non-Reactiv); HIV 1 & 2 Antigen Non-Reactive (Non-Reactiv)
--- NOTE | 2023-05-31 08:53 | USCV_ITS ---
Syd Gibbs Age: 62 Gender: M : 1960 Exam Date: 05/31/2023 08:59 Ordering Phys: Juani Mckeon MD Technologist: [place]am [place] [facility] [place]: ? veg BP: 143 / 67 HR: 104 Rhythm: Sinus Technical Quality: Adequate MEASUREMENTS (Male / Female) Normal Values 2D ECHO LV Diastolic Diameter PLAX 4.8 cm 4.2 - 5.9 / 3.9 - 5.3 cm LV Systolic Diameter PLAX 3.4 cm IVS Diastolic Thickness 1.6 cm 0.6 - 1.0 / 0.6 - 0.9 cm IVS Systolic Thickness 1.7 cm LVPW Diastolic Thickness 1.2 cm 0.6 - 1.0 / 0.6 - 0.9 cm LVPW Systolic Thickness 1.6 cm LVOT Diameter 2.0 cm LV Ejection Fraction 2D Teich 56.2 % LV Ejection Fraction MOD 2C 58.2 % LV Ejection Fraction 2C AL 58.5 % LA Diameter 4.3 cm LA Width 3.8 cm M-MODE Aortic Annulus Diameter 3.2 cm LA Ao Ratio MM 1.3 MV E Point Septal Separation 1.1 cm FINDINGS Left Ventricle Right Ventricle Right Atrium Left Atrium Mitral Valve Aortic Valve Tricuspid Valve Pulmonic Valve Pericardium Aorta IVC CONCLUSIONS Technically limited quality echocardiogram because of poor ultrasonic windows LV systolic function is normal with EF of 55-60% Mitral valve is structurally normal. No visible vegetation. Aortic valve is grossly normal. Limited visualization. No visible vegetation Tricuspid valve and pulmonic valve are not well visualized. Jakob Foy MD (Electronically Signed) Final Date: 31 May 2023 18:02 S
[2023-05-31] MEDS: morphine 4 mg/mL SDV 1 mL 1 MG IVP ×2 (10:27→17:59)
[2023-05-31] MEDS: aspirin 300 mg Supp PR (10:46)
--- NOTE | 2023-05-31 10:52 | P.PN_ITS ---
Subjective 2 Subjective: Seen this morning. Patient has no purposeful movements. He does not follow any commands. He does not track with his eyes. Unable to squeeze my fingers. He does have somewhat of a grasp reflex on right hand otherwise does not follow commands. Does sporadically move his toes but not by command. Sodium 160 this morning. Creatinine worsened to 1.4. He has a water deficit. He was seen by neurology earlier this morning at which time there was plan of spinal tap. Patient's declined to do a spinal tap at this time. Overnight he was afebrile however had a temp yesterday at 8 PM of 100.0. WBC count 10.63 today. Blood culture negative to date. Urine culture showed no growth. Bacterial antigen Legionella, bacterial antigen negative at this time. Neurology recommended a feeding tube at this time. Discussed with patient's at length at bedside regarding patient's situation and recommended a feeding tube at this time. Patient's states that she is too stressed out and has a lot of anxiety and cannot decide on it. She says we can do with that at a later time. I had a ramon conversation with her and said that without a feeding tube life is not sustainable given his current situation. However neurologically I do not see any meaningful recovery at this time based on the severity of his multiple embolic stroke.We will need to consider hospice versus comfort care if we are not pursuing further measures. I also emphasized that at this time he is at risk of significant morbidity mortality due to his underlying malignancy, multiple embolic strokes, comatose status. And we currently do not have a working source for his fever. There is also risk of him aspirating at this time. And I discussed that a feeding tube would not prevent further aspiration episodes. Talk to patient's [id number] as well. Patient's family states that patient's 3 sisters are coming in from out of town and will be having another family meeting today to decide further course of treatment. I told family for now we will keep him on the amiodarone drip, therapeutic Lovenox. I discussed results of CT scans done yesterday, patient's MRI and patient's echo at this time. I also offered to have a different neurologist to see the patient for second opinion versus transferring him to another hospital for second opinion if the family wishes. Patient's stated that they would like to stay at our hospital since patient's doctors are here. She is not interested in seeing another neurologist at this time however also stated she does not want to see Dr. Adan involved in his care. Vitals/I&O/Wt Last Vital Signs Temp 98.6 F 05/31/23 03:31 Pulse 99 05/31/23 07:28 Resp 29 H 05/31/23 10:27 BP 137/101 05/31/23 03:31 Pulse Ox 97 05/31/23 10:27 O2 Del Method BiPAP 05/31/23 07:10 FiO2 35 05/31/23 07:25 05/30/23 05/31/23 05/31/23 22:59 06:59 14:59 Intake Total 250 / 571.684 674.489 / 1246.173 892.5 / 892.5 Output Total 1999 / 1999 Balance 250 / -1428.316 674.489 / -753.827 -1107.5 / -1107.5 Weight last 48 hrs Weight 121.608 kg Weight 121.608 kg Physical Exam 2 Narrative: General: Patient appears resting comfortably, unable to follow any commands. Currently on bipap HEENT: PERRLA. Chest: Clear to auscultation b/l, no wheezes, no ronchi. CVS: Irregularly irregular, currently on amio drip Abdomen: Soft, nontender, no obvious organomegaly bowel sounds present. Neuro: Facial asymmetry with droop to the side. Unable to follow commands. Unable to assess neuroexam. Withdraws to pain, moves toes however not by command, has right hand grasp reflex however would not squeeze fingers b/l, does not track, unable to assess EOM. Data 05/31/23 03:26 05/31/23 03:26 Micro: Microbiology 05/28/23 18:13 Blood Culture - Preliminary Blood 05/28/23 17:54 Blood Culture - Preliminary Blood A&P Assessment and plan (1) Sepsis: (2) Acute thromboembolic cerebrovascular accident: (3) Non-ST elevation FL (NSTEMI): . (4) Pneumonia: (5) Adenocarcinoma of lower lobe of right lung: (6) Hypertension: (7) Diabetes: (8) Atrial fibrillation: (9) Dyspnea on exertion: (10) Non-small cell lung cancer: Qualifiers: Laterality: right Qualified Code(s): C34.91 - Malignant neoplasm of unspecified part of right bronchus or lung (11) Right pulmonary lesion: (12) Hilar lymphadenopathy: Plan #Acute ischemic multifocal multiple vascular territory stroke, most likely thromboembolic source #Sepsis secondary to most likely pneumonia #Persistent fever, secondary to pneumonia versus unknown origin #NSTEMI #Adenocarcinoma of lower lobe of right lung #Hypertension #Diabetes mellitus #A-fib with RVR #Non-small cell lung cancer #Hilar lymphadenopathy -Patient presented with strokes in multiple vascular distributions with after development of multiple neurological deficits returning and a strong right gaze preference and left-sided weakness suggesting that his MRI 3 days ago he developed progressive pathology in right hemisphere. 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 Initially patient placed on Eliquis as an outpatient. Echo transthoracic?did not show any obvious vegetations. ? Head CT checked 05/30 rule out hemorrhage ? CTA head and neck did not show any obvious occlusions. -Neurology recommends obtaining spinal fluid and doing a brief treatment with high-dose steroids Solu-Medrol 1 g a day for 3 days. ? For pneumonia: ESR CRP elevated, Pro-Anshul normal. Bacterial antigens strep Legionella normal. Patient does have persistent recurrent fever low-grade. This may be secondary to pneumonia versus a different cause. Will check a tick panel today, HIV. Continue on broad-spectrum antibiotics vancomycin, Zosyn, azithromycin. Will complete 7 days total at this time from time of admission. This could also be drug fever. White count is down to normal. Will consider discontinuing antibiotics at day 7 to see if there is any improvement. ? Respiratory viral panel also negative ? Limited echo done this morning also did not show any vegetations. I do not believe patient is a candidate for DAWIT at this time given his current state as there is high risk of aspiration. Briefly discussed with cardiology as well. ? Continue on amiodarone drip for atrial fibrillation with RVR -Continue therapeutic Lovenox for now twice daily. ? Continue on hydralazine 10 IV every 4 hours as needed for hypertension ? Patient currently does not have a feeding tube. I have discussed this with the family multiple times. They are undecided on the matter. ? Sodium 160 this morning. Increase D5 water to 60 cc/h. Switch drips to dextrose as opposed to normal saline. Discussed with pharmacy this morning. Patient has a large free water deficit. Again discussed this with family that we need to address feeding as soon as possible. ? Accu-Chek every 6 hours. Do not put on sliding scale at this time. Continue with hypoglycemia protocol ? Baseline troponin 410, 6-hour troponin 571.8. Delta at 6-hour 161.8 positive. EKG did not show any acute ischemic changes. Continue on rectal aspirin. Unable to administer statin at this time. Continue on therapeutic Lovenox. Family is undecided on feeding tube. ? Continue DuoNeb every 6 hour, Pulmicort twice daily ? Patient did receive one-time IV Lasix 40 05/29. Urine output being monitored. ? Continue metoprolol 5 mg every 6 hours ? has declined to do a spinal tap at this time. Discussion with spouse. He is to remain a full code at this time. Patient is at high risk for sudden clinical deterioration, and his prognosis is severely guarded. i dont not see chance of meaningful recovery with this patient. Feeding tube is an option however he carries a very poor prognosis. will attempt another goals of care discussion with family today. Family meeting scheduled for this afternoon when rest of family gets here today. Patient's is undecided on feeding tube at this time. Will continue to maintain n.p.o. status Code Status: Full IVF: D5 water at 50 cc/h DVT PPx: Lovenox therapeutic GI PPx: Protonix ABx: Azithromycin, Zosyn, vancomycin Diet: N.p.o. Discharge plan: SNF when appropriate. Attestations 2 Medical Necessity Statement*: Requires further hospitalization for management of non-ST elevation FL, sepsis secondary to aspiration pneumonia in a patient with thromboembolic stroke Diagnoses Sepsis A41.9 Acute thromboembolic cerebrovascular accident I63.9 Non-ST elevation FL (NSTEMI) I21.4 Pneumonia J18.9 Adenocarcinoma of lower lobe of right lung C34.31 Hypertension I10 Diabetes E11.9 Atrial fibrillation I48.91 Dyspnea on exertion R06.09 Non-small cell cancer of right lung C34.91 Laterality: right Right pulmonary lesion J98.4 Hilar lymphadenopathy R59.0
[2023-05-31] MEDS: potassium chloride premix 100 ML 25 MEQ IV (11:06)
--- NOTE | 2023-05-31 11:45 | PC.OT ---
OT treatment on hold for today due to pt's medical status; will attempt at a later time if possible.
--- NOTE | 2023-05-31 12:00 | XR_ITS ---
WS: [id number] Exam: XR chest 1V portable [id number] Date/Time of Exam: 05/31/2023 12:00 PM Reason For Exam: short of breath Comparison 05/30/2023. There is been interval cardiac enlargement with pulmonary vascular congestion suggesting CHF. Fluid o verload might be a consideration. There is atelectasis and infiltrate in the RIGHT lower lobe. No obv ious pneumothorax or pleural effusion. Right-sided Port-A-Cath ends in the region of the cavoatrial j unction. Bony structures are intact. IMPRESSION: 1. Interval increase in heart size with pulmonary vascular congestion suspicious for CHF. 2. Consolidation and atelectasis in the RIGHT lower lobe. This has worsened since the previous study.
--- NOTE | 2023-05-31 12:01 | ECG_ITS ---
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 Measurements Intervals [place] Rate: 176 P: 0 NE: 0 QRS: -43 QRSD: 98 T: 4 QT: 259 QTc: 444 Interpretive Statements ATRIAL FIBRILLATION WITH RAPID VENTRICULAR RESPONSE PATTERN CONSISTENT WITH PULMONARY DISEASE INFERIOR MYOCARDIAL INFARCTION , PROBABLY OLD [40+ ms Q WAVE AND/OR ST/T ABNORMALITY IN II/aVF] CRITICAL TEST RESULT INTERPRETATION BASED ON A DEFAULT AGE OF 40 YEARS Compared to ECG 05/29/2023 23:44:12 Left anterior fascicular block no longer present Myocardial infarct finding still present Electronically Signed On 05-31-2023 14:21:04 ALTERATIONS SEWER by Syd Obando M.D. [id number]
[2023-05-31 12:14] LABS: ABG PCO2 58.4 mmHg (35-45); ABG PH Result 7.28 (7.35-7.45); Alveolar-Arterial Oxygen Gradi 54.3 mmHg (5-10); Arterial Blood Gas Hematocrit 44.8 % (42-52); Base Excess ABG -0.4 mmol/L (-2.0-2.0); Blood Gas Allen Test Pos; Blood Gas Operator Identificat GD; Blood Gas Sample Site Radial, left; Blood Gas Sample Type Arterial; Carboxyhemoglobin 1.2 %THgb (0.4-20.1); HCO3 ABG 27.6 mmol/L (22-26); HGB O2 Sat 93.9 % (95-100); Ionized Calcium Level - ABG 1.3 mmol/L (1.1-1.4); Methemoglobin 0.3 % (0.4-1.5); Oxygen Device BIPAP; Oxygen Saturation ABG 95.4; PO2 ABG 84.9 mmHg (80.0-100.0); PO2 FiO2 Ratio Arterial Blood 0; Potassium Level - ABG 4.2 mmol/L (3.5-5.0); Total Hemoglobin 14.6 g/dL (14-18)
[2023-05-31] MEDS: methylPREDNISolone sod succ 125 mg/2 mL INJ 60 MG IVP (12:15)
[2023-05-31 12:17] LABS: Blood Urea Nitrogen 21 mg/dL (8-23); Calcium 8.9 mg/dL (8.5-10.5); Carbon Dioxide 26 mmol/L (22-29); Chloride 124 mmol/L (98-107); Glomerular Filtration Rate 47.7 mL/min (90-130); Glucose 124 mg/dL (65-115); Osmolality Calculated 332 mOsm/kg (285-295); Sodium 159 mmol/L (136-145)
[2023-05-31 12:37] LABS: Creatinine Clr Calc Pharmacy 68.4764
--- NOTE | 2023-05-31 12:37 | P.CONIM_ITS ---
Providers/Reason For Consult 2 Consulting Physician/Specialty*: Jakob Foy MD/ Cardiology Reason for Consult*: Atrial fibrillation with RVR Requesting Physician: Dr Mckeon Attending Physician: Juani Mckeon MD Primary Care Provider: Lopez Smith History of Present Illness History of Present Illness Syd Gibbs is a 62 year old male with PMH of adenocarcinoma of the right lung, diastolic dysfunction, who has presented with stroke involving multiple arterial territories. Likely thromboembolic origin. Was recently started on eliquis. He does not respond. Cardiology consulted as he went into afib with RVR. Heart rates are difficult to control. ECHO shows normal LV systolic function. Review of Systems 2 General: Reports: ROS unobtainable due to medical condition Medications/Allergies Home Medications Medication Instructions Recorded Confirmed Last Taken Type metoprolol tartrate 50 mg tablet 50 mg PO BID 06/19/19 05/27/23 05/11/23 History telmisartan 80 mg tablet 80 mg PO DAILY #90 tabs 11/23/22 05/27/23 05/11/23 Rx furosemide 20 mg tablet (Lasix) See Rx Instructions .Route .COMPLEX 12/15/22 05/27/23 05/11/23 History amlodipine 5 mg tablet 5 mg PO DAILY #90 tabs 12/16/22 05/27/23 05/11/23 Rx multivitamin 1 tab PO DAILY 02/14/23 05/27/23 05/11/23 History cetirizine 10 mg capsule (Zyrtec) 10 mg PO BID 02/21/23 05/27/23 05/11/23 History acetaminophen 325 mg capsule 325 mg PO QID PRN Pain 05/11/23 05/27/23 05/11/23 History apixaban 5 mg (74 tabs) tablets in See Rx Instructions PO PER PKG DIR 05/16/23 05/27/23 Unknown Rx a dose pack (Eliquis DVT-PE Treat #74 ea 30D Start) benzonatate 200 mg capsule 200 mg PO TID #90 caps 05/16/23 05/27/23 Unknown Rx lorazepam 1 mg tablet 0.5 - 1 mg (0.5 - 1 x 1 mg) PO Q6H 05/17/23 05/27/23 Unknown Rx PRN Severe Nausea #30 tabs potassium chloride 10 mEq 10 meq PO BID #60 tabs 05/17/23 05/27/23 Unknown Rx tablet,extended release atorvastatin 20 mg tablet 20 mg PO DAILY 05/27/23 05/27/23 Unknown History Allergies Allergy/AdvReac Type Severity Reaction Status Date / Time paclitaxel Allergy Severe ALGY-Hives Verified 05/11/23 10:21 Current Medications Generic Name Dose Route Start Last Admin Trade Name Freq PRN Reason Stop Dose Admin Albuterol/Ipratropium 3 ml 05/27/23 01:14 05/31/23 07:19 Ipratropium-Albuterol 3 Ml Neb INHALATION 3 ml Q6H.RESP PRN Administration SHORTNESS OF BREATH Aspirin 300 mg 05/27/23 11:40 05/31/23 10:46 Aspirin 300 Mg Supp [place] 300 mg DAILY BABAK Administration Atorvastatin Calcium 40 mg 05/26/23 21:00 05/26/23 20:47 Atorvastatin 40 Mg Tablet PO Not Given BEDTIME BABAK Budesonide 0.5 mg 05/26/23 20:00 05/31/23 07:19 Budesonide 0.5 Mg/2 Ml Neb INHALATION 0.5 mg BID.RESPIRATORY BABAK Administration Enoxaparin Sodium 120 mg 05/26/23 15:45 05/31/23 02:30 Enoxaparin 120 Mg/0.8 Ml Syringe SUBCUT 120 mg Q12H BABAK Administration Hydralazine HCl 10 mg 05/26/23 15:16 05/29/23 22:51 Hydralazine 20 Mg/Ml Inj 1 Ml IVP 10 mg Q4H PRN Administration SBP more than 160 mmhg Vancomycin/PEG/NADA/Lysine/Water 1,250 mg in 250 mls @ 250 mls/hr 05/26/23 17:30 05/31/23 06:36 Vancocin IV Infused Q12H BABAK Infusion Amiodarone HCl/Dextrose 360 mg in 200 mls @ 0 mls/hr 05/29/23 23:37 05/31/23 04:23 Nexterone IV 0.5 mg/min .Q0M BABAK 16.67 mls/hr Titration Protocol Per Protocol Azithromycin 500 mg/ Dextrose 250 mls @ 250 mls/hr 05/31/23 09:00 05/31/23 10:22 IV Infused DAILY BABAK Infusion Protocol Metoprolol Tartrate 5 mg 05/27/23 16:00 05/31/23 10:32 Metoprolol Tartrate 1 Mg/1 Ml Sdv 5 Ml IVP 5 mg Q4H BABAK Administration Morphine Sulfate 1 mg 05/30/23 15:08 05/31/23 10:27 Morphine 4 Mg/Ml Sdv 1 Ml IVP 1 mg Q4H PRN Administration SEVERE PAIN Pantoprazole Sodium 40 mg 05/26/23 15:00 05/30/23 17:10 Pantoprazole 40 Mg Sdv IVP 40 mg Q24H BABAK Administration PFSH Acute 2 PFSH: Medical History (Updated 06/01/23 @ 21:56 by Juani Mckeon MD) Acute thromboembolic cerebrovascular accident GERD (gastroesophageal reflux disease) Non-small cell lung cancer Diabetes Hypertension Surgical History Port-A-Cath in place History of bronchoscopy (01/03/23) History of appendectomy Family History Mother Anesthesia complication Cancer Sister Anesthesia complication Cancer Father Cancer Hypertension Denies family history of Diabetes CAD (coronary artery disease) Clotting disorder Dementia Hyperlipidemia Psychiatric illness Chronic kidney disease (CKD) Suicide Bleeding disorder Family history of premature coronary artery disease Lung disease Stroke Social History (Updated 05/16/23 @ 12:45 by Holden Oneil) Smoking and tobacco/nicotine status: former use of tobacco/nicotine Quit status (tobacco/nicotine): has quit using Year quit tobacco: 2007 Former quit date comment: tobaccco use overall 30 years Second hand smoke exposure: No Alcohol intake: current Vitals/I&O/Wt Last Vital Signs Temp 98.6 F 05/31/23 03:31 Pulse 107 H 05/31/23 11:59 Resp 29 H 05/31/23 10:27 BP 137/101 05/31/23 03:31 Pulse Ox 100 05/31/23 11:59 O2 Del Method BiPAP 05/31/23 07:10 FiO2 100 05/31/23 11:59 05/30/23 05/31/23 05/31/23 22:59 06:59 14:59 Intake Total 250 / 571.684 674.489 / 1246.173 892.5 / 892.5 Output Total 1999 Balance 250 / -1428.316 674.489 / -753.827 -1107.5 / -1107.5 Weight last 48 hrs Weight 268 lb 1.6 oz Weight 268 lb 1.6 oz Physical Exam 2 Narrative: GENERAL: Patient does not respond. On bipap NECK: No jugular vein distension. [] HEENT: No cyanosis. No icterus. No pallor. [] HEART: Irregularly irregular, tachycardia LUNGS: Diminished air entry CENTRAL NERVOUS SYSTEM: Does not respond EXTREMITIES: Lower extremities with 1+ edema bilaterally. Data 05/31/23 12:45 06/02/23 11:24 Micro: Microbiology 05/28/23 18:13 Blood Culture - Preliminary Blood 05/28/23 17:54 Blood Culture - Preliminary Blood A&P Assessment and plan (1) Atrial fibrillation: Qualifiers: Atrial fibrillation type: paroxysmal Qualified Code(s): I48.0 - Paroxysmal atrial fibrillation (2) Accelerated hypertension: (3) Adenocarcinoma of lower lobe of right lung: (4) Acute thromboembolic cerebrovascular accident: Plan Patient has gone into afib with RVR. Also has respiratory distress. His electrolytes are abnormal with sodium of 159. Continue amiodarone gtt. We will administer a bolus of 150 amiodarone again. Cardizem gtt if needed Will avoid cardioversion unless hemodynamic instability as chances of staying in normal sinus rhythm are low with electrolyte abnormalities. Continue tele monitoring Continue anticoagulation Thank you for involving us with care of this patient. please call with questions. Consult Attestations 2 Medical Necessity Statement: Care expected to cross 2 midnights. Coding Level of Care Code Acute Code for [facility] Fwd Diagnoses Paroxysmal atrial fibrillation I48.0 Atrial fibrillation type: paroxysmal Accelerated hypertension I10 Adenocarcinoma of lower lobe of right lung C34.31 Acute thromboembolic cerebrovascular accident I63.9
[2023-05-31 12:38] LABS: Anion Gap 12.8 (5-19); Potassium 3.8 mmol/L (3.5-5.1)
[2023-05-31] MEDS: digoxin 250 mcg/ml INJ 2 mL 500 MCG IVP (12:50)
[2023-05-31] MEDS: FUROsemide 10 mg/mL SDV 2mL 20 MG IVP (12:51)
[2023-05-31 12:52] LABS: Troponin T (5th) Once 369 ng/L (0-15)
--- NOTE | 2023-05-31 13:08 | PC.NURSE ---
Arrived from [facility], non responsive, afib rvr, tachypenea. Dr. Mckeon at bedside
--- NOTE | 2023-05-31 13:13 | USCV_ITS ---
Gibbs Syd Age: 62 Gender: M : 1960 Exam Date: 05/31/2023 14:02 Ordering Phys: Juani Mckeon MD Technologist: Exam Location: [facility] [place] Indication: ? per effusion BP: / HR: Rhythm: Sinus Technical Quality: Adequate MEASUREMENTS (Male / Female) Normal Values FINDINGS Left Ventricle Right Ventricle Right Atrium Left Atrium Mitral Valve Aortic Valve Tricuspid Valve Pulmonic Valve Pericardium Aorta IVC CONCLUSIONS Technically very limited quality echocardiogram. LV systolic function appears grossly normal. No significant pericardial effusion noted Jakob Foy MD (Electronically Signed) Final Date: 31 May 2023 18:30 S
[2023-05-31] MEDS: dextrose 5% 1,000 ML 75 ML IV (13:20)
[2023-05-31 13:35] LABS: Mean Corpuscular HGB Conc 29.6 g/dL (30-55); Mean Corpuscular Hemoglobin 29.6 pg (27-33); Mean Platelet Volume 10.3 fL (7.4-10.4); Platelet Count 207 10^3/cmm (157-399); Red Cell Distribution Width 14.7 % (12.1-15.1); White Blood Count 12.65 10^3/uL (3.29-11.43)
[2023-05-31 13:37] LABS: Alanine Aminotransferase 24 U/L (0-41); Albumin Level 3.1 g/dL (3.5-5.2); Alkaline Phosphatase 94 U/L (40-130); Anion Gap 14.5 (5-19); Aspartate Amino Transferase 44 U/L (0-40); Blood Urea Nitrogen 23 mg/dL (8-23); Calcium 9.1 mg/dL (8.5-10.5); Carbon Dioxide 27 mmol/L (22-29); Chloride 121 mmol/L (98-107); Globulin 4.2 g/dL (1.3-4.6); Glomerular Filtration Rate 38.7 mL/min (90-130); Glucose 137 mg/dL (65-115); Magnesium 2.6 mg/dL (1.7-2.3); Osmolality Calculated 334 mOsm/kg (285-295); Potassium 3.5 mmol/L (3.5-5.1); Sodium 159 mmol/L (136-145); Total Bilirubin 0.4 mg/dL (0.15-1.2); Total Protein 7.3 g/dL (6.6-8.7)
[2023-05-31 13:42] LABS: Lactate (Lactic Acid level) 1.8 mmol/L (0.5-2.2)
[2023-05-31] MEDS: amiodarone 50 mg/mL SDV 3 mL 150 MG IVP (13:45)
--- NOTE | 2023-05-31 14:00 | PC.NURSE ---
Witnessed a conversation regarding patient's overall status and decompensation with patient's family, including his spouse, Helga, his mother, sister, niece, and [id number] in ICU waiting room. Dr. Mckeon clearly explained patient's current diagnoses, including CVA, hyponatremia, tachycardia, kidney function, and neurological status. Patient's spouse was notably resistant to the conversation and made very limited eye contact with Dr. Mckeon, myself, or supervisor display fabrication that were present. She was obviously crying and family, mainly patient's sister, participated and asked questions regarding patient's prognosis. Dr. Mckeon explained that patient will likely not stabilize from this and will likely require CPR at some point, but will likely not recover from that, either. She also explained that upon collaboration with Dr. Adan, patient would likely not recover neurologically as well. Patient's family were understanding and when we asked if there were any questions to answer, patient's spouse stood quickly, upset, and left the room abruptly. Dr. Mckeon, Nader, and I offered support to patient's family and reminded them that we were available to answer questions or address concerns. They verbalized understanding and denied any questions/concerns. I informed them that while they were taking their time with the decision, they would all be allowed to visit patient together outside of the ICU visiting policy. They verbalized understanding. I updated Marguerite Choudhury RN, patient's primary nurse and Toro Muñiz RN, shoe salesman on the above information.
--- NOTE | 2023-05-31 14:36 | P.PN_ITS ---
Subjective 2 Subjective: pt had resp distress and on BIPAP Also in rapid A fib Medications: Reviewed: Yes Vitals/I&O/Wt Last Vital Signs Temp 98.6 F 05/31/23 03:31 Pulse 107 H 05/31/23 11:59 Resp 29 H 05/31/23 10:27 BP 137/101 05/31/23 03:31 Pulse Ox 100 05/31/23 11:59 O2 Del Method BiPAP 05/31/23 07:10 FiO2 100 05/31/23 11:59 05/30/23 05/31/23 05/31/23 22:59 06:59 14:59 Intake Total 250 / 571.684 674.489 / 2835.285 4362.0 / 1250.0 Output Total 1999 Balance 250 / -1428.316 674.489 / -753.827 -750.0 / -750.0 Weight last 48 hrs Weight 121.608 kg Weight 121.608 kg Physical Exam 2 Narrative: lethargic Data 05/31/23 12:45 05/31/23 23:19 Micro: Microbiology 05/28/23 18:13 Blood Culture - Preliminary Blood 05/28/23 17:54 Blood Culture - Preliminary Blood A&P Assessment and plan (1) Hypernatremia: Plan 1. Hypernatremia: Due to free water deficit in the setting of stroke and poor p.o. intake.. Also requested pharmacy to change mixing solutions for antibiotics and amiodarone to the D5W instead of normal saline. - was on d5 1/2 NS --> switch to d5w for now and once NGT placed - start 300 ml q 4 hours of free water boluses 2. Sepsis secondary to aspiration pneumonia 3. Stroke with left-sided weakness, lethargy, 4. History of hypertension 5. History of adenocarcinoma of the lung 6. Anasarca, likely third spacing in the setting of low albumin-will give IV albumin, once hypernatremia corrected we will start diuresis 7. Rapid A fib , 8.Resp failure on bipap Patient evaluated using audiovisual cart. Time spent 20 minutes Attestations 2 Medical Necessity Statement*: per iona Coding Level of Care Code Acute Code for Chg Fwd Diagnoses Hypernatremia E87.0
[2023-05-31] MEDS: pantoprazole 40 mg SDV IVP (15:30)
[2023-05-31] MEDS: hyDRALAzine 20 mg/mL INJ 1 mL 10 MG IVP ×2 (15:52→22:31)
[2023-05-31 16:08] LABS: Total Cells Counted 100 (0-100)
[2023-05-31 16:11] LABS: Absolute Segmented Neutrophil 10.2 10/cmm (1.6-7.1); Lymphocytes 6 %; Monocytes Absolute 0.8 10^3/cmm (0.1-0.6); Segmented Neutrophils 81 %
[2023-05-31 16:12] LABS: Absolute Eosinophils 0.4 10^3/cmm (0.0-0.7); Absolute Neutrophil 10.2 10^3/cmm (1.4-6.5); Anisocytosis 1+; Eosinophils 3 %; Lymphocytes Absolute 1.3 10^3/cmm (1.2-3.4); Platelet Estimate Normal (Normal)
--- NOTE | 2023-05-31 16:17 | PC.NURSE ---
this nurse and charge nurse spoke with per 's request about code status options, decide to change to AND
[2023-05-31] MEDS: piperacillin-tazobactam 3.375 GM in dextrose 5% (plus) 50 ML IV (18:19)
--- NOTE | 2023-05-31 19:32 | USCV_ITS ---
Syd Gibbs Age: 62 Gender: M : 1960 Exam Date: 05/31/2023 08:24 Ordering Phys: Juani Mckeon MD Technologist: [place] [facility] [place] Ind[place]: pe PROCEDURES: Venous duplex imaging was performed in bilateral upper extremities. The following venous structures were evaluated: internal jugular vein, subclavian vein, axillary vein, and brachial veins. In addition, the basilic vein, cephalic vein, radial vein, and ulnar vein. FINDINGS: No evidence of deep vein thrombosis or superficial thrombophlebitis in the right upper extremity. No evidence of deep vein thrombosis or superficial thrombophlebitis in the left upper extremity. CONCLUSIONS No bilateral upper extremity DVT. Dr. Mitali Wu DO (Electronically Signed) Final Date: 31 May 2023 09:59 S
--- NOTE | 2023-05-31 20:52 | PC.NURSE ---
At the beginning of this nurse's shift the amiodarone was running at 1 mg/min but the MAR said it was at 0.5 mg/min. MAR was changed to reflect the current rate.
[2023-05-31 23:05] LABS: Glucose Point of Care 176 mg/dL (70-110)
[2023-05-31 23:42] LABS: Anion Gap 14.2 (5-19); Blood Urea Nitrogen 27 mg/dL (8-23); Calcium 9.3 mg/dL (8.5-10.5); Carbon Dioxide 25 mmol/L (22-29); Chloride 121 mmol/L (98-107); Glomerular Filtration Rate 38.7 mL/min (90-130); Glucose 199 mg/dL (65-115); Osmolality Calculated 335 mOsm/kg (285-295); Potassium 3.2 mmol/L (3.5-5.1); Sodium 157 mmol/L (136-145)
[2023-05-31] MEDS: nicardipine 20 MG/200 ML PREMIX 50 MG IV (23:47)
[2023-06-01] VITALS (21 sets, daily range): BP systolic 122–168; BP diastolic 80–103; PULSE 62–109; RESP 17–29; TEMP 37.4–38.3; O2SAT 96–99; BMI 36.5
[2023-06-01] MEDS: metoprolol tartrate 1 mg/1 mL SDV 5 mL 5 MG IVP ×4 (01:53→17:37)
[2023-06-01] MEDS: enoxaparin 120 mg/0.8 mL Syringe SUBCUT ×2 (03:41→15:46)
[2023-06-01] MEDS: piperacillin-tazobactam 3.375 GM in dextrose 5% (plus) 50 ML IV ×3 (03:47→17:59)
[2023-06-01] MEDS: dextrose 5% 1,000 ML 75 ML IV ×2 (03:51→17:34)
[2023-06-01] MEDS: nicardipine 20 MG/200 ML PREMIX 30 MG IV (04:37)
[2023-06-01] MEDS: vancomycin 1,250 MG/250 ML PIGGYBACK 250 MG IV ×2 (04:56→23:23)
--- NOTE | 2023-06-01 07:17 | PC.OT ---
SKILLED OT D/C AT THIS TIME DUE TO DECLINE IN PATIENT STATUS. IF PATIENT ABLE TO ACTIVELY PARTICIPATE AT A LATER TIME, WILL BE HAPPY TO RE-EVALUATE AT THAT TIME.
[2023-06-01 07:40] LABS: Heparin Induced Platelet AB NEGATIVE (NEGATIVE); Patient O.D 0.035
[2023-06-01 07:51] LABS: Glucose Point of Care 165 mg/dL (70-110)
[2023-06-01] MEDS: budesonide 0.5 mg/2 mL Neb INHALATION ×2 (08:50→19:46)
[2023-06-01] MEDS: aspirin 300 mg Supp PR (09:06)
[2023-06-01] MEDS: nicardipine 20 MG/200 ML PREMIX 75 MG IV (09:18)
--- NOTE | 2023-06-01 09:18 | PM.PN ---
Subjective Subjective: transferred to ICU Medications: Reviewed: Yes Vitals/I&O/Wt Last Vital Signs Temp 100.1 F H 06/01/23 05:12 Pulse 101 H 06/01/23 08:52 Resp 24 H 06/01/23 08:50 BP 139/102 06/01/23 05:12 Pulse Ox 98 06/01/23 08:52 O2 Del Method BiPAP 06/01/23 08:50 FiO2 50 06/01/23 08:52 05/31/23 06/01/23 06/01/23 22:59 06:59 14:59 Intake Total 300.834 / 5806.429 3533.250 / 3172.357 152.000 / 152.000 Output Total 250 / 2250 475 / 2725 Balance 50.834 / -523.893 971.250 / 447.357 152.000 / 152.000 Weight last 48 hrs Weight 115.383 kg Weight 121.608 kg Physical Exam Narrative: lethargic Urinary Catheter Management: Sandhu: Cath Placed During This Visit: no Reason for Continuing Indwelling Catheter: Accurate Measurement of Urinary Output in Critically Ill Patients Data 05/31/23 12:45 06/01/23 11:32 Micro: Microbiology 05/28/23 18:13 Blood Culture - Preliminary Blood 05/28/23 17:54 Blood Culture - Preliminary Blood A&P Assessment and plan (1) Hypernatremia: Plan 1. Hypernatremia: Due to free water deficit in the setting of stroke and poor p.o. intake.. Also requested pharmacy to change mixing solutions for antibiotics and amiodarone to the D5W instead of normal saline. - NGT couldnt be placed due to being on BIPAP -on d5w infusion 2. SUDEEP : - renal function worsening , decreased UOP and pt volume overloaded -giving PRN LASIX - If no improvement by tomorrow , will consider temporary HD for volume management , not likely a intermediate HD candidate -discussed with - re: possible dialysis if renal fxn worsens , she will discuss with rest of family and make decision 2. Sepsis secondary to aspiration pneumonia 3. Stroke with left-sided weakness, lethargy, 4. History of hypertension 5. History of adenocarcinoma of the lung 6. Anasarca, likely third spacing in the setting of low albumin- and CHF 7. Rapid A fib , 8.Resp failure on bipap Patient evaluated using audiovisual cart. Time spent 20 minutes Attestations Medical Necessity Statement*: per [facility] Coding Level of Care Code Acute Code for Chg Fwd Diagnoses Hypernatremia E87.0
[2023-06-01] MEDS: FUROsemide 10 mg/mL SDV 4mL 40 MG IVP (10:51)
[2023-06-01 12:17] LABS: Anion Gap 12.6 (5-19); Blood Urea Nitrogen 27 mg/dL (8-23); Calcium 8.9 mg/dL (8.5-10.5); Carbon Dioxide 25 mmol/L (22-29); Chloride 120 mmol/L (98-107); Glomerular Filtration Rate 41.3 mL/min (90-130); Glucose 223 mg/dL (65-115); Osmolality Calculated 332 mOsm/kg (285-295); Sodium 155 mmol/L (136-145)
[2023-06-01] MEDS: nicardipine 20 MG/200 ML PREMIX 25 MG IV ×2 (12:25→20:46)
--- NOTE | 2023-06-01 12:47 | P.CONIM_ITS ---
Providers/Reason For Consult 2 Consulting Physician/Specialty*: General surgery Reason for Consult*: PEG tube placement Attending Physician: Juani Mckeon MD Primary Care Provider: Lopez Smith History of Present Illness History of Present Illness Syd Gibbs is a 62 year old male with history of lung cancer and admitted to the hospital with a acute ischemic multifocal stroke. I have been consulted for evaluation for possible PEG tube placement. Currently patient is in critical condition, requiring BiPAP, on multiple drips including amiodarone and nicardipine. Family member at the bedside have explained that he has remained stable over the last 24 hours without worsening of his status. Review of Systems 2 General: Reports: ROS unobtainable due to medical condition Medications/Allergies Home Medications Medication Instructions Recorded Confirmed Last Taken Type metoprolol tartrate 50 mg tablet 50 mg PO BID 06/19/19 05/27/23 05/11/23 History telmisartan 80 mg tablet 80 mg PO DAILY #90 tabs 11/23/22 05/27/23 05/11/23 Rx furosemide 20 mg tablet (Lasix) See Rx Instructions .Route .COMPLEX 12/15/22 05/27/23 05/11/23 History amlodipine 5 mg tablet 5 mg PO DAILY #90 tabs 12/16/22 05/27/23 05/11/23 Rx multivitamin 1 tab PO DAILY 02/14/23 05/27/23 05/11/23 History cetirizine 10 mg capsule (Zyrtec) 10 mg PO BID 02/21/23 05/27/23 05/11/23 History acetaminophen 325 mg capsule 325 mg PO QID PRN Pain 05/11/23 05/27/23 05/11/23 History apixaban 5 mg (74 tabs) tablets in See Rx Instructions PO PER PKG DIR 05/16/23 05/27/23 Unknown Rx a dose pack (Eliquis DVT-PE Treat #74 ea 30D Start) benzonatate 200 mg capsule 200 mg PO TID #90 caps 05/16/23 05/27/23 Unknown Rx lorazepam 1 mg tablet 0.5 - 1 mg (0.5 - 1 x 1 mg) PO Q6H 05/17/23 05/27/23 Unknown Rx PRN Severe Nausea #30 tabs potassium chloride 10 mEq 10 meq PO BID #60 tabs 05/17/23 05/27/23 Unknown Rx tablet,extended release atorvastatin 20 mg tablet 20 mg PO DAILY 05/27/23 05/27/23 Unknown History Allergies Allergy/AdvReac Type Severity Reaction Status Date / Time paclitaxel Allergy Severe ALGY-Hives Verified 05/11/23 10:21 Current Medications Generic Name Dose Route Start Last Admin Trade Name Freq PRN Reason Stop Dose Admin Albuterol/Ipratropium 3 ml 05/27/23 01:14 05/31/23 20:15 Ipratropium-Albuterol 3 Ml Neb INHALATION 3 ml Q6H.RESP PRN Administration SHORTNESS OF BREATH Aspirin 300 mg 05/27/23 11:40 06/01/23 09:06 Aspirin 300 Mg Supp CO 300 mg DAILY BABAK Administration Atorvastatin Calcium 40 mg 05/26/23 21:00 05/26/23 20:47 Atorvastatin 40 Mg Tablet PO Not Given BEDTIME BABAK Budesonide 0.5 mg 05/26/23 20:00 06/01/23 08:50 Budesonide 0.5 Mg/2 Ml Neb INHALATION 0.5 mg BID.RESPIRATORY BABAK Administration Enoxaparin Sodium 120 mg 05/26/23 15:45 06/01/23 03:41 Enoxaparin 120 Mg/0.8 Ml Syringe SUBCUT 120 mg Q12H BABAK Administration Hydralazine HCl 10 mg 05/26/23 15:16 05/31/23 22:31 Hydralazine 20 Mg/Ml Inj 1 Ml IVP 10 mg Q4H PRN Administration SBP more than 160 mmhg Vancomycin/PEG/NADA/Lysine/Water 1,250 mg in 250 mls @ 250 mls/hr 05/26/23 17:30 06/01/23 04:56 Vancocin IV 250 mls/hr Q12H BABAK Administration Amiodarone HCl/Dextrose 360 mg in 200 mls @ 0 mls/hr 05/29/23 23:37 06/01/23 03:18 Nexterone IV 0.5 mg/min .Q0M BABAK 16.67 mls/hr Titration Protocol Per Protocol Piperacillin Sod/Tazobactam 50 mls @ 12.5 mls/hr 05/31/23 11:00 06/01/23 10:51 Sod 3.375 gm/ Dextrose IV 12.5 mls/hr Q8H BABAK Administration Azithromycin 500 mg/ Dextrose 250 mls @ 250 mls/hr 05/31/23 09:00 06/01/23 09:06 IV 250 mls/hr DAILY BABAK Administration Protocol Dextrose 1,000 mls @ 75 mls/hr 05/31/23 13:15 06/01/23 03:51 D5w IV 75 mls/hr .[id number] BABAK Administration Nicardipine/Sodium Chloride 20 mg in 200 mls @ 0 mls/hr 05/31/23 23:45 06/01/23 12:25 Cardene IV 2.5 mg/hr .Q0M BABAK 25 mls/hr Administration Protocol Per Protocol Metoprolol Tartrate 5 mg 05/27/23 16:00 06/01/23 09:14 Metoprolol Tartrate 1 Mg/1 Ml Sdv 5 Ml IVP 5 mg Q4H BABAK Administration Morphine Sulfate 1 mg 05/30/23 15:08 05/31/23 17:59 Morphine 4 Mg/Ml Sdv 1 Ml IVP 1 mg Q4H PRN Administration SEVERE PAIN Pantoprazole Sodium 40 mg 05/26/23 15:00 05/31/23 15:30 Pantoprazole 40 Mg Sdv IVP 40 mg Q24H BABAK Administration PFSH Acute 2 PFSH: Medical History (Updated 05/30/23 @ 15:29 by Alysha Adan MD) Acute thromboembolic cerebrovascular accident GERD (gastroesophageal reflux disease) Non-small cell lung cancer Diabetes Hypertension Surgical History Port-A-Cath in place History of bronchoscopy (01/03/23) History of appendectomy Family History Mother Anesthesia complication Cancer Sister Anesthesia complication Cancer Father Cancer Hypertension Denies family history of Diabetes CAD (coronary artery disease) Clotting disorder Dementia Hyperlipidemia Psychiatric illness Chronic kidney disease (CKD) Suicide Bleeding disorder Family history of premature coronary artery disease Lung disease Stroke Social History (Updated 05/16/23 @ 12:45 by Holden Oneil) Smoking and tobacco/nicotine status: former use of tobacco/nicotine Quit status (tobacco/nicotine): has quit using Year quit tobacco: 2007 Former quit date comment: tobaccco use overall 30 years Second hand smoke exposure: No Alcohol intake: current Vitals/I&O/Wt Last Vital Signs Temp 100.1 F H 06/01/23 05:12 Pulse 104 H 06/01/23 10:20 Resp 17 06/01/23 10:20 BP 148/80 06/01/23 10:20 Pulse Ox 97 06/01/23 10:20 O2 Del Method BiPAP 06/01/23 08:50 FiO2 50 06/01/23 08:52 05/31/23 06/01/23 06/01/23 22:59 06:59 14:59 Intake Total 300.834 / 6055.388 8802.250 / 3172.357 402.000 / 402.000 Output Total 250 / 2250 475 / 2725 Balance 50.834 / -523.893 971.250 / 447.357 402.000 / 402.000 Weight last 48 hrs Weight 254 lb 6 oz Weight 268 lb 1.6 oz Physical Exam 2 Narrative: Patient is very somnolent, on BiPAP, unable to answer questions. ? Abdomen soft, nontender, nondistended, moderate abdominal pannus. First remedy edema noted.- Urinary Catheter Management: Sandhu: Cath Placed During This Visit: no Reason for Continuing Indwelling Catheter: Accurate Measurement of Urinary Output in Critically Ill Patients Data 05/31/23 12:45 06/01/23 11:32 Micro: Microbiology 05/28/23 18:13 Blood Culture - Preliminary Blood 05/28/23 17:54 Blood Culture - Preliminary Blood A&P Assessment and plan (1) Acute thromboembolic cerebrovascular accident: (2) Acute ischemic multifocal multiple vascular territories stroke: Plan 62-year-old male with ischemic stroke who is currently in the ICU for management. I was consulted for possible PEG tube placement. I have talked to the family and while I think that the PEG tube will be a good solution for long- term care, at this point in time patient is not a surgical candidate for this procedure due to clinical status, need for multiple drips and recent A-fib with RVR making him a very high risk candidate for anesthesia or any kind of surgical intervention. We have discussed this with the family and ICU team and decided to defer PEG tube placement until patient is stable and off drips. At that point general surgery can be reconsulted and we will be happy to proceed with placement of the tube. I have discussed with the family the potential procedure and complications in anticipation for intervention. Coding Level of Care Code Acute Code for Chg Fwd Diagnoses Acute thromboembolic cerebrovascular accident I63.9 Acute ischemic multifocal multiple vascular territories stroke I63.89
[2023-06-01 12:57] LABS: Potassium 2.6 mmol/L (3.5-5.1)
[2023-06-01 13:20] LABS: Lyme AB Screen <0.90 index
[2023-06-01 14:56] LABS: Cytomegalovirus Antibody (IGG) >10.00 U/mL; Cytomegalovirus Antibody (IGM) <30.00 AU/mL
[2023-06-01] MEDS: pantoprazole 40 mg SDV IVP (15:46)
--- NOTE | 2023-06-01 16:01 | P.PN_ITS ---
Subjective 2 Subjective: pt seen this am he has no purposeful movements he sometimes spontaneously moves his right hand and arm a little but it is random and not by command. continues to wiggle feet does not track does not follow commands eyes open and scleral injection noted b/l, asked rn to use saline drops does not withdraw to pain/sternal rub, no posturing noted. updated at bedside she would like to go head with peg tube. told her pt is unstable for surgical procedure however we will get surgery's input currently on cardene gtt and amio gtt, d5w gtt still requiring bipap urine output decreasing creatinine 1.8 k 2.7 patient made dnr/dni by family yesterday refused any kid of PT/OT, she stated it agitates him and there is no point . I did tell patient's and daughter at bedside regarding patient aspirating and she answered so the antibiotics are not doing any good . I explained to her that it is a recurrent aspiration and that is probably why he continues with his fever at this time. Vitals/I&O/Wt Last Vital Signs Temp 101 F H 06/01/23 13:25 Pulse 104 H 06/01/23 14:00 Resp 19 H 06/01/23 12:57 BP 156/89 06/01/23 12:57 Pulse Ox 99 06/01/23 12:57 O2 Del Method BiPAP 06/01/23 08:50 FiO2 50 06/01/23 08:52 06/01/23 06/01/23 06/01/23 06:59 14:59 22:59 Intake Total 1446.250 / 3172.357 402.000 / 402.000 Output Total 475 / 2725 Balance 971.250 / 447.357 402.000 / 402.000 Weight last 48 hrs Weight 115.383 kg Weight 121.608 kg Physical Exam 2 Narrative: General: Patient appears resting comfortably, unable to follow any commands. Currently on bipap, slightly tachypneac as prior days HEENT: PERRLA. Chest: Clear to auscultation b/l, no wheezes, no ronchi, difficult auscultation 2/2 body habitus and positioning CVS: Irregularly irregular, currently on amio drip Abdomen: Soft, nontender, no obvious organomegaly bowel sounds present. does not grimace to palpation. Neuro: Facial asymmetry with droop to the side. Unable to follow commands. Unable to assess neuroexam. does not Withdraws to pain, moves toes however not by command, has right hand grasp reflex however would not squeeze fingers b/l, does not track, unable to assess EOM. scleral injection noted, some crusting at medial eyelid Urinary Catheter Management: Sandhu: Cath Placed During This Visit: no Reason for Continuing Indwelling Catheter: Accurate Measurement of Urinary Output in Critically Ill Patients Data 05/31/23 12:45 06/01/23 16:15 A&P Assessment and plan (1) Sepsis: (2) Acute thromboembolic cerebrovascular accident: (3) Non-ST elevation [place] (NSTEMI): . (4) Pneumonia: Qualifiers: Pneumonia type: aspiration pneumonia Aspiration pneumonia type: u nspecified Laterality: right Lung location: lower lobe of lung Qualified Code(s): J69.0 - Pneumonitis due to inhalation of food and vomit (5) Adenocarcinoma of lower lobe of right lung: (6) Hypertension: (7) Diabetes: (8) Atrial fibrillation: Qualifiers: Atrial fibrillation type: paroxysmal Qualified Code(s): I48.0 - Paroxysmal atrial fibrillation (9) Dyspnea on exertion: (10) Non-small cell lung cancer: Qualifiers: Laterality: right Qualified Code(s): C34.91 - Malignant neoplasm of unspecified part of right bronchus or lung (11) Right pulmonary lesion: (12) Hilar lymphadenopathy: (13) Anasarca: (14) Heart failure: (15) Accelerated hypertension: (16) Aspiration into lower respiratory tract: (17) BiPAP (biphasic positive airway pressure) dependence: (18) Acute kidney injury: (19) Poor prognosis: (20) Neurological deficit present: (21) Malnutrition: (22) Hypoalbuminemia: (23) Goals of care, counseling/discussion: Plan #Acute ischemic multifocal multiple vascular territory stroke, most likely thromboembolic source #Sepsis secondary to most likely pneumonia #Persistent fever, secondary to pneumonia versus unknown origin #NSTEMI #Adenocarcinoma of lower lobe of right lung #Hypertension #Diabetes mellitus #A-fib with RVR #Non-small cell lung cancer #Hilar lymphadenopathy #Acute kidney injury #Anasarca 2/2 to renal #Congestive heart failure, most likely diastolic #BIPAP dependent resp failure -Patient presented with strokes in multiple vascular distributions with after development of multiple neurological deficits returning and a strong right gaze preference and left-sided weakness suggesting that his MRI 3 days ago he developed progressive pathology in right hemisphere. 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 Initially patient placed on Eliquis as an outpatient. Echo transthoracic?did not show any obvious vegetations. ? Head CT checked 05/30 rule out hemorrhage ? CTA head and neck did not show any obvious occlusions. -Neurology recommends obtaining spinal fluid and doing a brief treatment with high-dose steroids Solu-Medrol 1 g a day for 3 days. ? For pneumonia: ESR CRP elevated, Pro-Anshul normal. Bacterial antigens strep Legionella normal. Patient does have persistent recurrent fever low-grade. This may be secondary to pneumonia versus a different cause. Will check a tick panel today, HIV. Continue on broad-spectrum antibiotics vancomycin, Zosyn, azithromycin. Will complete 7 days total at this time from time of admission. This could also be drug fever. White count is down to normal. Will consider discontinuing antibiotics at day 7 to see if there is any improvement. ? Respiratory viral panel also negative ? Limited echo done this morning also did not show any vegetations. I do not believe patient is a candidate for DAWIT at this time given his current state as there is high risk of aspiration. Briefly discussed with cardiology as well. ? Continue on amiodarone drip for atrial fibrillation with RVR -Continue therapeutic Lovenox for now twice daily. ? Continue on hydralazine 10 IV every 4 hours as needed for hypertension ? Patient currently does not have a feeding tube. I have discussed this with the family multiple times. They are undecided on the matter. ? Sodium 160 this morning. Increase D5 water to 60 cc/h. Switch drips to dextrose as opposed to normal saline. Discussed with pharmacy this morning. Patient has a large free water deficit. Again discussed this with family that we need to address feeding as soon as possible. ? Accu-Chek every 6 hours. Do not put on sliding scale at this time. Continue with hypoglycemia protocol ? Baseline troponin 410, 6-hour troponin 571.8. Delta at 6-hour 161.8 positive. EKG did not show any acute ischemic changes. Continue on rectal aspirin. Unable to administer statin at this time. Continue on therapeutic Lovenox. Family is undecided on feeding tube. ? Continue DuoNeb every 6 hour, Pulmicort twice daily ? Patient did receive one-time IV Lasix 40 05/29. Urine output being monitored. ? Continue metoprolol 5 mg every 6 hours ? has declined to do a spinal tap at this time. Discussion with spouse. He is to remain a full code at this time. Patient is at high risk for sudden clinical deterioration, and his prognosis is severely guarded. i dont not see chance of meaningful recovery with this patient. Feeding tube is an option however he carries a very poor prognosis. will attempt another goals of care discussion with family today. Family meeting scheduled for this afternoon when rest of family gets here today. Patient's is undecided on feeding tube at this time. Will continue to maintain n.p.o. status Todays plan 06/01/2023 - no change in neurological status compared to yesterday, does have slight movement in right upper extremity however purposeless. No tracking, no following commands - at bedside, will consult gen surgery for peg tube however he is deemed not a surgical candidate at this time. appreciate gen surg recs - kidney function is worsening, may require dialysis in next 24-48 hours depending on renal function. discussed with nephrology who also discussed the same with family. they are undecided on proceeding with it for now - will discuss with family regarding possibility of TPN as a bridge to PEG tube as it is day 6 of no nutrition. Family was undecided at first on feeding however now interested in a PEG. - I have again discussed with family that if there is no nutrition, this is not sustainable - Pt not a candidate for NG tube and tube feeds given the need for continous bipap at this time - Continue metroprolol q4H IV pushes scheduled - Continue with lasix 40 IV today. Discussed with nephrology. - Replete hypokalaemia - Continue solumedrol 1 g/day as per neuro recs for the remote remote possibility of a vasculitis however i do not believe that this is the case. Have sent ALONDRA workup. - Patient at very high risk of recurrent aspiration. I do not believe is able to fully protect his airway. XR reviewed that was repeated yesterday shows right lower lobe worsening infiltrate. I have told this to the family as well the fact that a PEG will not eliminate the risk of aspiration. - Will continue to treat with ABX at this time. - We will attempt to wean patient from bipap and see if we can transition to nasal cannula however i do not believe that will be possible at this time secondary to difficult diuresis, hypernatremia, 3rd spacing, anasarca and central pulm congestion as evident on chest xr. - Goal to Continue to wean cardene drip and switch to hydrazline IV pushes - Discussed with neurology, nephrology (multiple times), nursing staff DNR/DNI SCDs, Therapeutic lovenox Code Status: DNR/DNI, Allow natural IVF: D5 water at 75 cc/h DVT PPx: Lovenox therapeutic GI PPx: Protonix ABx: Azithromycin, Zosyn, vancomycin Diet: N.p.o. Discharge plan: SNF when appropriate. Attestations 2 Medical Necessity Statement*: continue icu level care Critical Care Time: The high probability of a clinically significant, sudden or life threatening deterioration of the patient's [cardiovascular, resp, renal] system(s) required my full and direct attention, intervention and personal management. The critical care time is as shown. This time is in addition to time spent performing any reported procedures but includes the following: [x] Data and vital sign review and interpretation [x] Patient assessment, examination and intervention [x] Documentation [x] Medication orders and management Critical Care Time (min): 60 Coding Level of Care Code Critical Care >/= 30 minutes Critical care time (in minutes): 60 The high probability of a clinically significant, sudden or life threatening deterioration, as referenced in this documentation, required my full and direct attention, intervention and personal management. The critical care time shown is in addition to time spent performing any reported separately billable procedures and includes the following: [x] Data and vital sign review and interpretation [x ] Patient assessment, examination and intervention [x] Medication orders and management [x] Patient/Family updates as able [x] Care Coordination and Documentation. Diagnoses Sepsis A41.9 Acute thromboembolic cerebrovascular accident I63.9 Non-ST elevation [place] (NSTEMI) I21.4 Aspiration pneumonia of right lower lobe, unspecified aspiration pneumonia type J69.0 Pneumonia type: aspiration pneumonia Aspiration pneumonia type: unspecified Laterality: right Lung location: lower lobe of lung Adenocarcinoma of lower lobe of right lung C34.31 Hypertension I10 Diabetes E11.9 Paroxysmal atrial fibrillation I48.0 Atrial fibrillation type: paroxysmal Dyspnea on exertion R06.09 Non-small cell cancer of right lung C34.91 Laterality: right Right pulmonary lesion J98.4 Hilar lymphadenopathy R59.0 Anasarca R60.1 Heart failure I50.9 Accelerated hypertension I10 Aspiration into lower respiratory tract T17.800A BiPAP (biphasic positive airway pressure) dependence Z99.89 Acute kidney injury N17.9 Poor prognosis Z78.9 Neurological deficit present R29.818 Malnutrition E46 Hypoalbuminemia E88.09 Goals of care, counseling/discussion Z71.89
[2023-06-01 16:52] LABS: Vancomycin Trough 27.6 ug/mL (10-15)
[2023-06-01 16:54] LABS: Anion Gap 13.7 (5-19); Blood Urea Nitrogen 29 mg/dL (8-23); Calcium 8.9 mg/dL (8.5-10.5); Carbon Dioxide 25 mmol/L (22-29); Chloride 122 mmol/L (98-107); Glomerular Filtration Rate 44.3 mL/min (90-130); Glucose 156 mg/dL (65-115); Osmolality Calculated 335 mOsm/kg (285-295); Sodium 158 mmol/L (136-145)
[2023-06-01 16:57] LABS: Potassium 2.7 mmol/L (3.5-5.1)
[2023-06-01] MEDS: potassium chloride premix 100 ML 25 MEQ IV (17:35)
--- NOTE | 2023-06-01 18:50 | P.PN_ITS ---
Subjective 2 Subjective: This is a progress note for 06/01/2022 I saw the patient yesterday morning and visited with his at the bedside. She did not want me to wake him up. I visited with Dr. Mckeon yesterday and again today. I reviewed the events on his chart. He presented with multiple strokes in multiple vascular distributions with devastating neurologic injury, coma, inability to communicate with both expressive and receptive difficulty and quadriplegia worse on the left side than the right even though his stroke looks to be larger in the left hemisphere. He is also experiencing progressive renal failure and had hematuria which leaves me concerned about embolic injury to the kidneys. Plan was for PEG tube to help with long-term solution for keeping him hydrated and giving him the best chance for recovery but he is too unstable for PEG tube. He is now in ICU because of progressive renal failure. He has right lower lobe pneumonia. He has not responded to antibiotics and his temperature is still 101. He is now in ICU. Although cerebral vasculitis is an extremely unlikely possibility, because of his multiple infarcts and poor prognosis we agreed to a 3 day trial of high-dose steroids. Vitals/I&O/Wt Last Vital Signs Temp 101 F H 06/01/23 13:25 Pulse 97 06/01/23 16:32 Resp 22 H 06/01/23 16:28 BP 152/91 06/01/23 16:28 Pulse Ox 97 06/01/23 16:32 O2 Del Method BiPAP 06/01/23 08:50 FiO2 50 06/01/23 16:32 06/01/23 06/01/23 06/01/23 06:59 14:59 22:59 Intake Total 1446.250 / 3172.357 452.000 / 651.550 1685 / 1452.000 Output Total 475 / 2725 2800 / 2800 Balance 971.250 / 447.357 452.000 / 452.000 -1800 / -1348.000 Weight last 48 hrs Weight 254 lb 6 oz Weight 268 lb 1.6 oz Physical Exam 2 Narrative: He is transferred to ICU and I visited with him in ICU. He has multiple automatic behaviors including frequent blinking, random eye movements (mainly central position of the eyes), occasional lifting of the right arm and nonpurposeful movement of the right hand. Constant restless movements of the feet, stereotyped and unchanged from previous exams. He does not follow any verbal commands. He does not fix and follow the examiner. He has constant blinking when his eyes are open and no specific response to visual threat. He has strong grasp reflex on the right. The left arm is flaccid. He has a vigorous movements with stimulation of the feet without any purposeful movements such as withdrawal or attempt to protect the feet. These appear stereotyped but although nonpurposeful, more than triple flexion. He has upgoing toes. Urinary Catheter Management: Sandhu: Cath Placed During This Visit: no Reason for Continuing Indwelling Catheter: Accurate Measurement of Urinary Output in Critically Ill Patients Data 05/31/23 12:45 06/02/23 07:56 A&P Assessment and plan (1) Acute ischemic multifocal multiple vascular territories stroke: 62-year-old man with hypercoagulable state secondary to adenocarcinoma of the lung. It is unfortunate that his adenocarcinoma seem to be responding to chemoradiation but he presented with multiple strokes in multiple vascular distributions and already had devastating neurologic injury by the time he arrived here. He has continued to wax and wane neurologically during his stay. Trial of steroids on the extremely unlikely case that these are multiple infarcts from cerebral vasculitis. His prognosis is grave for meaningful recovery and he now has multiorgan failure as well as persistent fever despite antibiotics. Worsening renal failure. Non-ST [place] and new onset of atrial fibrillation. We cannot be sure that he does not have marantic endocarditis as that entity is almost impossible to visualize and he is not stable for DAWIT. (2) Atrial fibrillation: Qualifiers: Atrial fibrillation type: paroxysmal Qualified Code(s): I48.0 - Paroxysmal atrial fibrillation (3) Non-ST elevation [place] (NSTEMI): (4) Adenocarcinoma of lower lobe of right lung: (5) Pneumonia: Qualifiers: Aspiration pneumonia type: unspecified Laterality: right Lung location: lower lobe of lung Pneumonia type: aspiration pneumonia Qualified Code(s): J69.0 - Pneumonitis due to inhalation of food and vomit (6) Hilar lymphadenopathy: Attestations 2 Medical Necessity Statement*: The patient is in every way unstable and his demise has been rapid and unexpected Coding Level of Care Code Acute Code for [facility] Diagnoses Acute ischemic multifocal multiple vascular territories stroke I63.89 Paroxysmal atrial fibrillation I48.0 Atrial fibrillation type: paroxysmal Non-ST elevation [place] (NSTEMI) I21.4 Adenocarcinoma of lower lobe of right lung C34.31 Aspiration pneumonia of right lower lobe, unspecified aspiration pneumonia type J69.0 Aspiration pneumonia type: unspecified Laterality: right Lung location: lower lobe of lung Pneumonia type: aspiration pneumonia Hilar lymphadenopathy R59.0
--- NOTE | 2023-06-01 19:28 | PC.PHAR ---
VANCOMYCIN PHARMACY TO DOSE BASED ON TROUGH 27.6 Use this page to adjust dose, Tinf, or tau when only a TROUGH is taken. VANCOMYCIN or AMINOGLYCOSIDE: VANCO mg/kg Last Name FRAN Dose(mg) 1250 13.90 First Name TIFFANI Tinf (hrs) 1 hrs : 62 Tau=freq (hrs) 12 hrs Location: ICU-10 Cmax (calculated) 45.2 mcg/ml Cpeak (calculated) 43.3 mcg/ml Sex (M/F) M Cmin (trough): 27.6 mcg/ml AGE (yrs) 62 Calculated Vd: 67.5 liters Ht (inches) 70.0 Calculated Ke: 0.043 hrs-1 ABW (Kg) 115.4 Calculated T1/2: 16.19 hrs IBW (Kg) 73.0 mg/kg DW (Kg) 90.0 NEW Dose (mg) 1250 13.90 NEW Tinf (hrs) 1 NEW Tau (hrs) 18 VANCO GENT TARGETS Expected Cmax: 33.8 Targets Standard Dosing High Dose Expected Cpeak: 32.3 25 to 40 6 - 12 mcg/ml 20 - 24 mcg/ml Expected Cmin: 16.3 10 to 20 0.5 - 2 mcg/ml < 1 mcg/ml WHEN DO I GIVE THE NEXT DOSE? When will the Blood Conc. Be Equal to my New Expected Cmin? If Dose was HELD If Dose was GIVEN Give Next Dose In: (From time trough drawn) 12 hrs 24 hrs [address] will the Conc. Be if I wait : 12.8 mcg/ml 21.3 mcg/ml 18 hrs
--- NOTE | 2023-06-01 20:47 | PC.NURSE ---
Amiodarone was off at the beginning of this nurse's shift. MAR was updated to reflect this.
[2023-06-01 23:11] LABS: Anion Gap 13.9 (5-19); Blood Urea Nitrogen 32 mg/dL (8-23); Carbon Dioxide 25 mmol/L (22-29); Chloride 121 mmol/L (98-107); Glomerular Filtration Rate 38.7 mL/min (90-130); Glucose 172 mg/dL (65-115); Osmolality Calculated 335 mOsm/kg (285-295); Sodium 157 mmol/L (136-145)
[2023-06-01 23:27] LABS: Potassium 2.9 mmol/L (3.5-5.1)
[2023-06-02] VITALS (26 sets, daily range): BP systolic 143–168; BP diastolic 87–101; PULSE 79–101; RESP 15–24; TEMP 37–37.2; O2SAT 95–100; BMI 36.6
[2023-06-02] MEDS: lidocaine 1% 5 ML in potassium chloride premix 100 ML 26.25 ML IV ×2 (00:24→14:29)
[2023-06-02] MEDS: metoprolol tartrate 1 mg/1 mL SDV 5 mL 5 MG IVP ×2 (01:38→05:32)
[2023-06-02] MEDS: nicardipine 20 MG/200 ML PREMIX 30 MG IV (02:21)
[2023-06-02] MEDS: hyDRALAzine 20 mg/mL INJ 1 mL 10 MG IVP (03:24)
[2023-06-02] MEDS: piperacillin-tazobactam 3.375 GM in dextrose 5% (plus) 50 ML IV ×2 (03:25→11:14)
[2023-06-02] MEDS: dextrose 5% 1,000 ML 75 ML IV ×2 (03:49→15:01)
[2023-06-02] MEDS: enoxaparin 120 mg/0.8 mL Syringe SUBCUT ×2 (03:49→15:01)
[2023-06-02] MEDS: morphine 4 mg/mL SDV 1 mL 1 MG IVP (03:58)
[2023-06-02 05:49] LABS: Glucose Point of Care 154 mg/dL (70-110)
[2023-06-02] MEDS: ipratropium-albuterol 3 mL Neb INHALATION (07:43)
[2023-06-02] MEDS: budesonide 0.5 mg/2 mL Neb INHALATION (07:43)
[2023-06-02 08:25] LABS: Anti-Nuclear Antibody Pattern Cytoplasmic; Anti-Nuclear Antibody Screen POSITIVE (NEGATIVE)
[2023-06-02 08:28] LABS: Anion Gap 12.9 (5-19); Blood Urea Nitrogen 35 mg/dL (8-23); Calcium 9.1 mg/dL (8.5-10.5); Carbon Dioxide 25 mmol/L (22-29); Chloride 122 mmol/L (98-107); Glomerular Filtration Rate 41.3 mL/min (90-130); Glucose 162 mg/dL (65-115); Osmolality Calculated 336 mOsm/kg (285-295); Sodium 157 mmol/L (136-145)
[2023-06-02 08:30] LABS: Potassium 2.9 mmol/L (3.5-5.1)
[2023-06-02] MEDS: aspirin 300 mg Supp PR (08:34)
--- NOTE | 2023-06-02 08:48 | PC.NUTR ---
IF enteral nutrition is desired and PEG access obtained, see nutrition regimen below: continuous: Jevity 1.2 @75 ml/hr x24hrs (1800 ml/day) with 100 ml FWF q4. bolus: 8, (240ml) cans/day (3 can @B, 3 can @L, 2 can @D) with 150 ml FWF q8 See most recent RD note for details
--- NOTE | 2023-06-02 09:07 | P.PN_ITS ---
Subjective 2 Subjective: Patient seen at 01 11. There has been no change in his neurologic status or his medical state. He is afebrile this morning. Vitals/I&O/Wt Last Vital Signs Temp 98.9 F 06/02/23 05:52 Pulse 89 06/02/23 07:46 Resp 21 H 06/02/23 07:30 BP 159/94 06/02/23 05:52 Pulse Ox 100 06/02/23 07:35 O2 Del Method BiPAP 06/02/23 07:30 FiO2 50 06/02/23 07:35 06/01/23 06/02/23 06/02/23 22:59 06:59 14:59 Intake Total 1698.333 / 2150.333 1065.834 / 3216.167 Output Total 2800 / 2800 975 / 3775 Balance -1101.667 / -649.667 90.834 / -558.833 Weight last 48 hrs Weight 255 lb 9 oz Weight 254 lb 6 oz Physical Exam 2 Narrative: Patient lying quietly in icu with BiPAP in place. He does not follow any commands such as open your eyes, close your eyes, hold up your hand. He does not respond to pain. He has stereotyped movements including flexion of the right elbow, placing his right hand near his neck or over his mask, constant restless movements of the feet. These are the same movements that he has displayed throughout his stay and during the same time he is opening and closing the eyes and constantly blinking. No response to visual threat. He has a strong grasp reflex in the right hand. The left arm is flaccid. He displays vigorous withdrawal of the feet from any stimulus but there is no change in any of his other behaviors during this very vigorous movement which is perhaps an exaggerated triple flexion response. Toes are upgoing. Urinary Catheter Management: Sandhu: Cath Placed During This Visit: no Reason for Continuing Indwelling Catheter: Accurate Measurement of Urinary Output in Critically Ill Patients Data 05/31/23 12:45 06/02/23 07:56 Micro: Microbiology 05/26/23 15:57 Blood Culture - Final Blood 05/26/23 15:50 Blood Culture - Final Blood A&P Assessment and plan (1) Acute ischemic multifocal multiple vascular territories stroke: Unfortunate 62-year-old man with hypercoagulable state secondary to underlying adenocarcinoma of the lung. On the remote chance that his multiple strokes were a reaction to cerebral vasculitis we have given him 3 days of high-dose steroids without any change in his vegetative state. I would consider that his stereotypic behaviors without any signs of voluntary reaction would be best characterized as vegetative state. His prognosis for meaningful recovery is poor. I attempted to talk with his this morning and she did not want to discuss this, brushed by me, saying we already talked about this. High suspicion that his renal failure may be a reaction to emboli. High suspicion of marantic endocarditis. This is not treatable. Stop steroids after today. Continue attempting to negotiate with this very difficult situation. Discussed at length with Dr. Mkceon. Attestations 2 Medical Necessity Statement*: Medically and neurologically unstable 62-year-old man Coding Level of Care Code Acute Code for g Fwd Diagnoses Acute ischemic multifocal multiple vascular territories stroke I63.89
--- NOTE | 2023-06-02 09:49 | P.PN_ITS ---
Subjective 2 Subjective: on bipap 40 % fio2 Medications: Reviewed: Yes Vitals/I&O/Wt Last Vital Signs Temp 98.9 F 06/02/23 05:52 Pulse 84 06/02/23 09:12 Resp 18 06/02/23 09:12 BP 168/101 06/02/23 09:12 Pulse Ox 98 06/02/23 09:12 O2 Del Method BiPAP 06/02/23 07:30 FiO2 50 06/02/23 07:35 06/01/23 06/02/23 06/02/23 22:59 06:59 14:59 Intake Total 1698.333 / 2150.333 1065.834 / 3216.167 Output Total 2800 / 2800 975 / 3775 Balance -1101.667 / -649.667 90.834 / -558.833 Weight last 48 hrs Weight 115.921 kg Weight 115.383 kg Physical Exam 2 Narrative: lethargic Urinary Catheter Management: Sandhu: Cath Placed During This Visit: no Reason for Continuing Indwelling Catheter: Accurate Measurement of Urinary Output in Critically Ill Patients Data 05/31/23 12:45 06/02/23 07:56 Micro: Microbiology 05/26/23 15:57 Blood Culture - Final Blood 05/26/23 15:50 Blood Culture - Final Blood A&P Assessment and plan (1) Hypernatremia: Plan 1. Hypernatremia: Due to free water deficit in the setting of stroke and poor p.o. intake.. Also requested pharmacy to change mixing solutions for antibiotics and amiodarone to the D5W instead of normal saline. - NGT couldnt be placed due to being on BIPAP -on d5w infusion 2. SUDEEP : - Cr stable and good UOP -giving PRN LASIX Noted Neurology note re: poor prognosis. discussed with pt's re: overall poor prognosis and dialysis will not change the outcome 2. Sepsis secondary to aspiration pneumonia 3. Stroke with left-sided weakness, lethargy, 4. History of hypertension 5. History of adenocarcinoma of the lung 6. Anasarca, likely third spacing in the setting of low albumin- and CHF 7. Rapid A fib , 8.Resp failure on bipap Patient evaluated using audiovisual cart. Time spent 20 minutes Attestations 2 Medical Necessity Statement*: per mediicne Coding Level of Care Code Acute Code for [facility] Diagnoses Hypernatremia E87.0
[2023-06-02 11:53] LABS: Anion Gap 13.8 (5-19); Blood Urea Nitrogen 35 mg/dL (8-23); Carbon Dioxide 25 mmol/L (22-29); Chloride 118 mmol/L (98-107); Glomerular Filtration Rate 41.3 mL/min (90-130); Glucose 165 mg/dL (65-115); Osmolality Calculated 330 mOsm/kg (285-295); Sodium 154 mmol/L (136-145)
[2023-06-02 12:19] LABS: Potassium 2.8 mmol/L (3.5-5.1)
--- NOTE | 2023-06-02 14:06 | P.PN_ITS ---
Subjective 2 Subjective: seen today. no change in neuro status Vitals/I&O/Wt Last Vital Signs Temp 99.0 F 06/02/23 12:19 Pulse 91 06/02/23 13:03 Resp 23 H 06/02/23 12:19 BP 168/101 06/02/23 09:12 Pulse Ox 98 06/02/23 13:03 O2 Del Method BiPAP 06/02/23 07:30 FiO2 40 06/02/23 13:03 06/01/23 06/02/23 06/02/23 22:59 06:59 14:59 Intake Total 1698.333 / 2150.333 1065.834 / 3216.167 50 / 50 Output Total 2800 / 2800 975 / 3775 Balance -1101.667 / -649.667 90.834 / -558.833 50 / 50 Weight last 48 hrs Weight 115.921 kg Weight 115.383 kg Physical Exam 2 Narrative: General: Patient appears resting comfortably, unable to follow any commands. Currently on bipap, HEENT: PERRLA. Chest: Clear to auscultation b/l, no wheezes, no ronchi, difficult auscultation 2/2 body habitus and positioning CVS: Irregularly irregular, Abdomen: Soft, nontender, no obvious organomegaly bowel sounds present. does not grimace to palpation. Neuro: Facial asymmetry with droop to the side. Unable to follow commands. Unable to assess neuroexam. does not Withdraws to pain, moves toes however not by command, has right hand grasp reflex however would not squeeze fingers b/l, does not track, unable to assess EOM. scleral injection noted, some crusting at medial eyelid Urinary Catheter Management: Sandhu: Cath Placed During This Visit: no Reason for Continuing Indwelling Catheter: Accurate Measurement of Urinary Output in Critically Ill Patients Data 05/31/23 12:45 06/02/23 11:24 Micro: Microbiology 05/26/23 15:57 Blood Culture - Final Blood 05/26/23 15:50 Blood Culture - Final Blood A&P Assessment and plan (1) Sepsis: (2) Acute thromboembolic cerebrovascular accident: (3) Non-ST elevation AK (NSTEMI): . (4) Pneumonia: Qualifiers: Pneumonia type: aspiration pneumonia Aspiration pneumonia type: u nspecified Laterality: right Lung location: lower lobe of lung Qualified Code(s): J69.0 - Pneumonitis due to inhalation of food and vomit (5) Adenocarcinoma of lower lobe of right lung: (6) Hypertension: (7) Diabetes: (8) Atrial fibrillation: Qualifiers: Atrial fibrillation type: paroxysmal Qualified Code(s): I48.0 - Paroxysmal atrial fibrillation (9) Dyspnea on exertion: (10) Non-small cell lung cancer: Qualifiers: Laterality: right Qualified Code(s): C34.91 - Malignant neoplasm of unspecified part of right bronchus or lung (11) Right pulmonary lesion: (12) Hilar lymphadenopathy: (13) Anasarca: (14) Heart failure: (15) Accelerated hypertension: (16) Aspiration into lower respiratory tract: (17) BiPAP (biphasic positive airway pressure) dependence: (18) Acute kidney injury: (19) Poor prognosis: (20) Neurological deficit present: (21) Malnutrition: (22) Hypoalbuminemia: (23) Goals of care, counseling/discussion: Plan #Acute ischemic multifocal multiple vascular territory stroke, most likely thromboembolic source #Sepsis secondary to most likely pneumonia #Persistent fever, secondary to pneumonia versus unknown origin #NSTEMI #Adenocarcinoma of lower lobe of right lung #Hypertension #Diabetes mellitus #A-fib with RVR #Non-small cell lung cancer #Hilar lymphadenopathy #Acute kidney injury #Anasarca 2/2 to renal #Congestive heart failure, most likely diastolic #BIPAP dependent resp failure -Patient presented with strokes in multiple vascular distributions with after development of multiple neurological deficits returning and a strong right gaze preference and left-sided weakness suggesting that his MRI 3 days ago he developed progressive pathology in right hemisphere. 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 Initially patient placed on Eliquis as an outpatient. Echo transthoracic?did not show any obvious vegetations. ? Head CT checked 05/30 rule out hemorrhage ? CTA head and neck did not show any obvious occlusions. -Neurology recommends obtaining spinal fluid and doing a brief treatment with high-dose steroids Solu-Medrol 1 g a day for 3 days. ? For pneumonia: ESR CRP elevated, Pro-Anshul normal. Bacterial antigens strep Legionella normal. Patient does have persistent recurrent fever low-grade. This may be secondary to pneumonia versus a different cause. Will check a tick panel today, HIV. Continue on broad-spectrum antibiotics vancomycin, Zosyn, azithromycin. Will complete 7 days total at this time from time of admission. This could also be drug fever. White count is down to normal. Will consider discontinuing antibiotics at day 7 to see if there is any improvement. ? Respiratory viral panel also negative ? Limited echo done this morning also did not show any vegetations. I do not believe patient is a candidate for DAWIT at this time given his current state as there is high risk of aspiration. Briefly discussed with cardiology as well. ? Continue on amiodarone drip for atrial fibrillation with RVR -Continue therapeutic Lovenox for now twice daily. ? Continue on hydralazine 10 IV every 4 hours as needed for hypertension ? Patient currently does not have a feeding tube. I have discussed this with the family multiple times. They are undecided on the matter. ? Sodium 160 this morning. Increase D5 water to 60 cc/h. Switch drips to dextrose as opposed to normal saline. Discussed with pharmacy this morning. Patient has a large free water deficit. Again discussed this with family that we need to address feeding as soon as possible. ? Accu-Chek every 6 hours. Do not put on sliding scale at this time. Continue with hypoglycemia protocol ? Baseline troponin 410, 6-hour troponin 571.8. Delta at 6-hour 161.8 positive. EKG did not show any acute ischemic changes. Continue on rectal aspirin. Unable to administer statin at this time. Continue on therapeutic Lovenox. Family is undecided on feeding tube. ? Continue DuoNeb every 6 hour, Pulmicort twice daily ? Patient did receive one-time IV Lasix 40 05/29. Urine output being monitored. ? Continue metoprolol 5 mg every 6 hours ? has declined to do a spinal tap at this time. Discussion with spouse. He is to remain a full code at this time. Patient is at high risk for sudden clinical deterioration, and his prognosis is severely guarded. i dont not see chance of meaningful recovery with this patient. Feeding tube is an option however he carries a very poor prognosis. will attempt another goals of care discussion with family today. Family meeting scheduled for this afternoon when rest of family gets here today. Patient's is undecided on feeding tube at this time. Will continue to maintain n.p.o. status Todays plan 06/02/2023 - no change in neurological status compared to yesterday, does have slight movement in right upper extremity however purposeless. No tracking, no following commands - consulted gen surgery for peg tube however he is deemed not a surgical candidate at this time. appreciate gen surg recs -Discussed with nephrology today. Since there is no change in neurological status. Dialysis would not change the outcome. - will discuss with family regarding possibility of TPN as a bridge to PEG tube. Initially family was undecided however after talking with them again today. Daughter also present in room and says that she does not want to torture him more. - Pt not a candidate for NG tube and tube feeds given the need for continous bipap at this time - Continue metroprolol q4H IV pushes scheduled -Hold IV Lasix today.. - Replete hypokalaemia - Continue solumedrol 1 g/day as per neuro recs for the remote remote possibility of a vasculitis however i do not believe that this is the case. Have sent ALONDRA workup. Last dose of Solu-Medrol due today. ALONDRA titer moderately elevated. May be nonspecific given patient history of underlying cancer. Aura discussed with rheumatology over the phone as well. - Patient at very high risk of recurrent aspiration. I do not believe is able to fully protect his airway. PEG was not a limited risk of aspiration. - Will continue to treat with ABX at this time. - We will attempt to wean patient from bipap and see if we can transition to nasal cannula however i do not believe that will be possible at this time secondary to difficult diuresis, hypernatremia, 3rd spacing, anasarca and central pulm congestion as evident on chest xr. Discussed with and she is undecided on allowing us to switch to nasal cannula at this time. - Goal to Continue to wean cardene drip and switch to hydrazline IV pushes ? Had another meeting with family namely and patient's daughter in the waiting room. Patient's states is her anyway to conduct physician assisted suicide . And I told her we cannot do that. She is upset and stating started chemo do this to him? No one told us about the side effects, I do not know why the pneumonia and he keeps getting a pneumonia . She also states that he was not brought to the hospital on time due to the ambulance taking him to [place] instead of here however patient was having TIA-like symptoms for last week prior to hospital admission. ? I discussed about comfort measures and with the use of morphine and Ativan. Will consult ethics committee in this case. Will also place a referral for palliative care for Dr. Bird. - Discussed with neurology, nephrology (multiple times), nursing staff DNR/DNI SCDs, Therapeutic lovenox Code Status: DNR/DNI, Allow natural IVF: D5 water at 75 cc/h DVT PPx: Lovenox therapeutic GI PPx: Protonix ABx: Azithromycin, Zosyn, vancomycin Diet: N.p.o. Discharge plan: SNF when appropriate. Attestations 2 Medical Necessity Statement*: continue icu level care Diagnoses Sepsis A41.9 Acute thromboembolic cerebrovascular accident I63.9 Non-ST elevation AK (NSTEMI) I21.4 Aspiration pneumonia of right lower lobe, unspecified aspiration pneumonia type J69.0 Pneumonia type: aspiration pneumonia Aspiration pneumonia type: unspecified Laterality: right Lung location: lower lobe of lung Adenocarcinoma of lower lobe of right lung C34.31 Hypertension I10 Diabetes E11.9 Paroxysmal atrial fibrillation I48.0 Atrial fibrillation type: paroxysmal Dyspnea on exertion R06.09 Non-small cell cancer of right lung C34.91 Laterality: right Right pulmonary lesion J98.4 Hilar lymphadenopathy R59.0 Anasarca R60.1 Heart failure I50.9 Accelerated hypertension I10 Aspiration into lower respiratory tract T17.800A BiPAP (biphasic positive airway pressure) dependence Z99.89 Acute kidney injury N17.9 Poor prognosis Z78.9 Neurological deficit present R29.818 Malnutrition E46 Hypoalbuminemia E88.09 Goals of care, counseling/discussion Z71.89
--- NOTE | 2023-06-02 15:52 | P.EN_ITS ---
Event Note Event Note: Called by RN that patient's family wants to transition to comfort measures Discussed with family. and daughter would like to transition to comfort measures. They understand we will stop all medications, drips, blood draws, further workup/management at this time. Place on ativan, morphine and standard comfort orders were reviewed with family in presence of TYE Segura. Orders placed in chart to reflect above. Family requests to continue bipap till morning. RT updated. Event Notes Attestations Time Spent in Patient Care: Greater than 35 minutes (>than 50% of time spent in counselling and/or direct pt care on unit) .
--- NOTE | 2023-06-02 16:18 | P.CONIM_ITS ---
Providers/Reason For Consult 2 Consulting Physician/Specialty*: Hospice services Reason for Consult*: Hospice Requesting Physician: Dr. Juani Mckeon Attending Physician: Juani Mckeon MD Primary Care Provider: Lopez Smith History of Present Illness History of Present Illness Syd Gibbs is a 62 year old male with Hx of HTN, HLD, DM2, Afib, CHF and adenocarcinoma of lungs seen in ICU s/p acute ischemic multifocal multi vessel territory stroke, sepsis 2/2 PNA, NSTEMI, afib RVR, respiratory failure requiring BIPAP and electrolyte derangement 2/2 multi-organ failure. Patient was admitted to hospital on 05/26/23 and I was consulted on 06/02/23 for complicated hospital course with poor outcomes requiring hospice consult. After Speaking with multiple medical staff there has been difficulty with the POA in regards to understanding the patients medical condition. Hospital course was complicated by PNA requiring Vancomycin, Zosyn, azithromyzin, BIPAP for respiritory failure, and consultation of nephrology and neurology. Likely cause of CVA 2/2 thromboembolic state from underlying CA as no obvious vegetations on ECHO or hematological abnormalities. There has been no improvement in his mentation since 05/26/23 per both hospital staff and family. Renal function has progressively worsened but currently has stabilized at CKD 3a. Electrolyte derangement has worsened in this patient, specifically consistent decrease in potassium levels. Requirement of BIPAP with some improvements per subsequent ABG's. No noticeable improvement after IV ABx for PNA. Significant amount of time was spent with family by both Dr. Adan and Dr. Mckeon. After discussion with hospitalist and personal evaluation of scans, blood work findings, and progress notes, I believe the effects of the CVA and subsequent rapid deterioration and sustained encephalopathy of patient will lead to impending cessation of life. He meets hospice criteria based on his current status as his life expectancy is 6 months or less if his current condition follows its normal course. I spoke with the POA Ivone Hoover and her daughter for an extended period of time. I notified family of the above and what I felt his prognosis was. I was unaware at this time he had been moved to comfort measures by Dr. Mckeon. In describing what hospice was and its goals, it appeared they where interested in this; however, when discussing disposition there where significant misunderstandings. I informed the family that the goal is to transfer the patient to hospice at home or at a nursing facility as he does not meet criteria for General Inpatient Hospice given his lack of active medications, severe agitation, open wounds, intractable nausea or vomiting, pathological fractures, frequent medication administration or adjustments. The daughter was fairly confrontational on the phone as she was under the impression Syd could stay in hospital under comfort measures while on hospice. She was adamant that home was not an option given 1hr away from [place] and in a location without cell phone service. The daughter was also adamant that custodial was not an option as she worked there, did not like the conditions and refused the discussion of the matter. Given her preferences unfortunately does not factor into GIP criteria per CMS guidelines we elected to keep on comfort measures under hospitalist care. I informed the daughter that she has the right to determine Hospice care companies for which i gave her the options; however, I also informed her that other Hospice entities in the region likely will come under the same conclusion that he does not meet requirements for in-hospital hospice care and would require discussion and eventual transfer to a custodial if he continues to persist more than a couple days. The daughter appeared frustrated by this and requested the conversation to end. I informed her that i would not be sending our hospice team for admission considering the above circumstances as she wished to think about it and consider her options. In summary I do believe Mr Syd Gibbs has suffered a significant CVA with subsequent multiorgan failure meeting hospice criteria; however, at this time he does not meet GIP criteria for long-term in hospital care. He certainly could be moved to GIP-status with the plan for [facility] transfer on the Monday06/05/22; however this option is currently not agreeable by family. We concluded the conversation by agreeing to discuss again tomorrow. Medications/Allergies Home Medications Medication Instructions Recorded Confirmed Last Taken Type metoprolol tartrate 50 mg tablet 50 mg PO BID 06/19/19 05/27/23 05/11/23 History telmisartan 80 mg tablet 80 mg PO DAILY #90 tabs 11/23/22 05/27/23 05/11/23 Rx furosemide 20 mg tablet (Lasix) See Rx Instructions .Route .COMPLEX 12/15/22 05/27/23 05/11/23 History amlodipine 5 mg tablet 5 mg PO DAILY #90 tabs 08/09/0405/27/23 05/11/23 Rx multivitamin 1 tab PO DAILY 02/14/23 05/27/23 05/11/23 History cetirizine 10 mg capsule (Zyrtec) 10 mg PO BID 02/21/23 05/27/23 05/11/23 History acetaminophen 325 mg capsule 325 mg PO QID PRN Pain 05/11/23 05/27/23 05/11/23 History apixaban 5 mg (74 tabs) tablets in See Rx Instructions PO PER PKG DIR 05/16/23 05/27/23 Unknown Rx a dose pack (Eliquis DVT-PE Treat #74 ea 30D Start) benzonatate 200 mg capsule 200 mg PO TID #90 caps 05/16/23 05/27/23 Unknown Rx lorazepam 1 mg tablet 0.5 - 1 mg (0.5 - 1 x 1 mg) PO Q6H 05/17/23 05/27/23 Unknown Rx PRN Severe Nausea #30 tabs potassium chloride 10 mEq 10 meq PO BID #60 tabs 05/17/23 05/27/23 Unknown Rx tablet,extended release atorvastatin 20 mg tablet 20 mg PO DAILY 05/27/23 05/27/23 Unknown History Allergies Allergy/AdvReac Type Severity Reaction Status Date / Time paclitaxel Allergy Severe ALGY-Hives Verified 05/11/23 10:21 Current Medications Generic Name Dose Route Start Last Admin Trade Name Freq PRN Reason Stop Dose Admin Morphine Sulfate 1 mg 05/30/23 15:08 06/02/23 03:58 Morphine 4 Mg/Ml Sdv 1 Ml IVP 1 mg Q4H PRN Administration SEVERE PAIN PFSH Acute 2 PFSH: Medical History (Updated 06/01/23 @ 21:56 by Juani Mckeon MD) Acute thromboembolic cerebrovascular accident GERD (gastroesophageal reflux disease) Non-small cell lung cancer Diabetes Hypertension Surgical History Port-A-Cath in place History of bronchoscopy (01/03/23) History of appendectomy Family History Mother Anesthesia complication Cancer Sister Anesthesia complication Cancer Father Cancer Hypertension Denies family history of Diabetes CAD (coronary artery disease) Clotting disorder Dementia Hyperlipidemia Psychiatric illness Chronic kidney disease (CKD) Suicide Bleeding disorder Family history of premature coronary artery disease Lung disease Stroke Social History (Updated 05/16/23 @ 12:45 by Holden Oneil) Smoking and tobacco/nicotine status: former use of tobacco/nicotine Quit status (tobacco/nicotine): has quit using Year quit tobacco: 2007 Former quit date comment: tobaccco use overall 30 years Second hand smoke exposure: No Alcohol intake: current Vitals/I&O/Wt Last Vital Signs Temp 99.0 F 06/02/23 12:19 Pulse 92 06/02/23 16:14 Resp 23 H 06/02/23 12:19 BP 168/101 06/02/23 09:12 Pulse Ox 98 06/02/23 16:14 O2 Del Method BiPAP 06/02/23 07:30 FiO2 40 06/02/23 16:14 06/02/23 06/02/23 06/02/23 06:59 14:59 22:59 Intake Total 1065.834 / 3216.167 50 / 50 840 / 890 Output Total 975 / 3775 Balance 90.834 / -558.833 50 / 50 840 / 890 Weight last 48 hrs Weight 255 lb 9 oz Weight 254 lb 6 oz Physical Exam 2 Narrative: General: AOx0, pt appears resting comfortably on BIPAP. unable to follow commands. psych: unconcscious, unable to eval Head: atraumatic, normocephalic, no mass/lesions Ears: clear external auditory canals Eyes: conjunctiva clear with some hemmorhage present, no exudate. non-icteric, PERRLA. no signs of nystagmus Nose: nasal mucosa pink, septum midline Neck: no lymphadenopathy, no tracheal deviation Chest: atraumatic, symmetrical CVD: irregular irregular, normal S1 and S2, 2/6 WILLIE at LSB, no R/G. 2+ pulse x 4 extremities, no JVD, faint bilateral carotid bruit. Lungs: clear lung sounds in all graham, no rhonchi, wheezing, rales. bipap in place Abdomen: ND, soft, NABS. No hepatosplenomegaly, no mass. no grunting or movements when pressing abdomen. Neuro: visible dyssymitry of face. unable to complete full assessment due to mentation. no withdrawal to painful stimulous. no movement to verbal commands, no squeezing of hands on command. Skin:? no rash, vesicles, lesions. Urinary Catheter Management: Sandhu: Cath Placed During This Visit: no Reason for Continuing Indwelling Catheter: Accurate Measurement of Urinary Output in Critically Ill Patients Data 05/31/23 12:45 06/02/23 11:24 Micro: Microbiology 05/26/23 15:57 Blood Culture - Final Blood 05/26/23 15:50 Blood Culture - Final Blood A&P Assessment and plan (1) Sepsis: (2) Acute thromboembolic cerebrovascular accident: (3) Non-ST elevation GA (NSTEMI): . (4) Pneumonia: Qualifiers: Pneumonia type: aspiration pneumonia Aspiration pneumonia type: u nspecified Laterality: right Lung location: lower lobe of lung Qualified Code(s): J69.0 - Pneumonitis due to inhalation of food and vomit (5) Adenocarcinoma of lower lobe of right lung: (6) Hypertension: (7) Diabetes: (8) Atrial fibrillation: Qualifiers: Atrial fibrillation type: paroxysmal Qualified Code(s): I48.0 - Paroxysmal atrial fibrillation (9) Non-small cell lung cancer: Qualifiers: Laterality: right Qualified Code(s): C34.91 - Malignant neoplasm of unspecified part of right bronchus or lung (10) Right pulmonary lesion: (11) Heart failure: (12) Accelerated hypertension: (13) Aspiration into lower respiratory tract: (14) BiPAP (biphasic positive airway pressure) dependence: (15) Acute kidney injury: (16) Poor prognosis: (17) Neurological deficit present: (18) Malnutrition: (19) Hypoalbuminemia: (20) Goals of care, counseling/discussion: Plan Consulted for Hospice care Pt qualifies for hospice; however does not currently meet GIP criteria for in- hospital hospice care. Significant time spent discussing with family. at this time they wish to continue on comfort measures through Dr. Mckeon and will consider hospice whether through [facility] or a different entity in the morning. I informed the patient that the ultimate goal if not meeting in-patient CMS guidelines is transfer to home or nursing facility which is difficult for the family to come to half backer with. I have discussed this with Dr. Mckeon Comfort measures DNR/DNI, allow natural currently still on Bipap plan to remove lovenox, IVF and Bipap in the AM Discharge disposition -pending decision from family in regards to hospice care. -i will continue to monitor this patient and see if he transitions into GIP, if family is agreable to hospice at home or nursing facility, or if the family elects another hospice entity. Coding Level of Care Code 07540 Diagnoses Sepsis A41.9 Acute thromboembolic cerebrovascular accident I63.9 Non-ST elevation GA (NSTEMI) I21.4 Aspiration pneumonia of right lower lobe, unspecified aspiration pneumonia type J69.0 Pneumonia type: aspiration pneumonia Aspiration pneumonia type: unspecified Laterality: right Lung location: lower lobe of lung Adenocarcinoma of lower lobe of right lung C34.31 Hypertension I10 Diabetes E11.9 Paroxysmal atrial fibrillation I48.0 Atrial fibrillation type: paroxysmal Non-small cell cancer of right lung C34.91 Laterality: right Right pulmonary lesion J98.4 Heart failure I50.9 Accelerated hypertension I10 Aspiration into lower respiratory tract T17.800A BiPAP (biphasic positive airway pressure) dependence Z99.89 Acute kidney injury N17.9 Poor prognosis Z78.9 Neurological deficit present R29.818 Malnutrition E46 Hypoalbuminemia E88.09 Goals of care, counseling/discussion Z71.89
--- NOTE | 2023-06-02 16:33 | PC.NURSE ---
I presented to the ICU to speak with patient's , Ivone, and daughter, Roxana, regarding the potential consult to palliative care/hospice with Dr. Bird along with Rosenda Gaytan RN, Printing Services Coordinator. We sat down and reviewed the information they were already informed of, including the question about moving patient to comfort care. I offered for Dr. Bird to consult with them and answer more questions regarding comfort care/palliative care/hospice and explain those benefits further as the expert. Both Ivone and Roxana were agreeable to comfort measures, stating that they didn't want patient to suffer, wanted Ivone to be able to stay with him, and for him to have visitors as well. We reassured her that all of these things would be our priority and that she and the rest of the family could visit whenever they chose and could stay overnight as well. They both verbalized understanding. Patient apologized for her actions toward staff earlier in the week d/t exhaustion and feeling overwhelmed by the fact that this was sudden and unexpected. We reassured her that she was not a burden and we as well as the rest of the staff were there to support them and help them in any way possible. We spoke about what comfort measures would look like, including medications, d/c of labs and critical drips, VS, and O2 requirement. We explained that these are flexible and are individualized to fit the needs of the patient and/or family. Both Ivone and Roxana seemed engaged in the conversation, asking questions, and repeating back facts about patient's status. I provided them my card and assured them that patient and their comfort was our first priority and we were happy to help and support them in any way possible. They denied further questions/concerns.
[2023-06-02] MEDS: morphine 4 mg/mL SDV 1 mL IVP ×4 (17:18→23:56)
--- NOTE | 2023-06-02 17:37 | PC.NURSE ---
I was called back to ICU by patient's mother, Shadia, and daughter, Roxana. They stated that they spoke with Dr. Bird and didn't feel comfortable talking about longer term care at this time. I explained that it was on intended to provide options on if patient remained on comfort care for days, that we could explore options for moving patient to home or a SNF on hospice. They verbalize understanding and state they would like to cross that bridge when they get to it . I reassured them that we would only be doing what they and the patient would be comfortable with and discussed moving patient to Med/Surg on 06/03 to a private room. They are in agreement with this plan at this time. I updated Dr. Mckeon and Marguerite Choudhury, RN.
[2023-06-02 21:15] LABS: UFH High Dose, 100 IU/ML 0 % release; UFH Low Dose, 0.1 IU/ML 0 % release; UFH Low Dose, 0.5 IU/ML 0 % release; UFH SRA Result NEGATIVE (NEGATIVE)
[2023-06-03] VITALS (22 sets, daily range): BP systolic 99–168; BP diastolic 75–98; PULSE 65–88; RESP 8–22; TEMP 36.6–37.2; O2SAT 95–99
[2023-06-03] MEDS: morphine 4 mg/mL SDV 1 mL IVP ×7 (01:20→21:21)
[2023-06-03 04:49] LABS: CMV DNA By PCR NOT DETECTED; CMV DNA, QN PCR NOT DETECTED Log IU/mL; SOURCE WHOLE BLOOD
--- NOTE | 2023-06-03 06:16 | PC.NURSE ---
Pt monitored overnight. Because t is unable to speak or communicate in a meaningful way, IVP morphine given per comfort care orders based on pt vital signs (see MAR). Pt temp periodically spiked to 99's (see vital signs). Pt continues to have flushed, warm skin. Pt continues to make non-purposeful movements of both feet and right hand only.
--- NOTE | 2023-06-03 13:51 | P.PN_ITS ---
Subjective 2 Subjective: seen today at bedside appears comfortable breathing with bipap. Vitals/I&O/Wt Last Vital Signs Temp 99 F 06/03/23 04:00 Pulse 71 06/03/23 12:00 Resp 22 H 06/03/23 12:00 BP 168/98 06/03/23 12:00 Pulse Ox 98 06/03/23 11:14 O2 Del Method BiPAP 06/02/23 20:00 FiO2 30 06/03/23 11:14 06/02/23 06/03/23 06/03/23 22:59 06:59 14:59 Intake Total 2864.75 / 2914.75 Output Total 1000 / 1000 800 / 1800 Balance 1864.75 / 1914.75 -800 / 1114.75 Weight last 48 hrs Weight 115.921 kg Physical Exam 2 Narrative: General: Patient appears resting comfortably, unable to follow any commands. Currently on bipap, HEENT: PERRLA. Chest: Clear to auscultation b/l, CVS: Irregularly irregular, t Abdomen: Soft, nontender, Neuro: Unable to follow commands, in persistent vegetative state Urinary Catheter Management: Sandhu: Cath Placed During This Visit: no Reason for Continuing Indwelling Catheter: Accurate Measurement of Urinary Output in Critically Ill Patients Data 05/31/23 12:45 06/02/23 11:24 Micro: Microbiology 05/30/23 11:40 Blood Culture - Preliminary Blood 05/30/23 11:34 Blood Culture - Preliminary Blood 05/26/23 15:57 Blood Culture - Final Blood 05/26/23 15:50 Blood Culture - Final Blood A&P Assessment and plan (1) Sepsis: (2) Acute thromboembolic cerebrovascular accident: (3) Non-ST elevation MN (NSTEMI): . (4) Pneumonia: Qualifiers: Pneumonia type: aspiration pneumonia Aspiration pneumonia type: u nspecified Laterality: right Lung location: lower lobe of lung Qualified Code(s): J69.0 - Pneumonitis due to inhalation of food and vomit (5) Adenocarcinoma of lower lobe of right lung: (6) Hypertension: (7) Diabetes: (8) Atrial fibrillation: Qualifiers: Atrial fibrillation type: paroxysmal Qualified Code(s): I48.0 - Paroxysmal atrial fibrillation (9) Dyspnea on exertion: (10) Non-small cell lung cancer: Qualifiers: Laterality: right Qualified Code(s): C34.91 - Malignant neoplasm of unspecified part of right bronchus or lung (11) Right pulmonary lesion: (12) Hilar lymphadenopathy: (13) Anasarca: (14) Heart failure: (15) Accelerated hypertension: (16) Aspiration into lower respiratory tract: (17) BiPAP (biphasic positive airway pressure) dependence: (18) Acute kidney injury: (19) Poor prognosis: (20) Neurological deficit present: (21) Malnutrition: (22) Hypoalbuminemia: (23) Goals of care, counseling/discussion: (24) Comfort measures only status: (25) Persistent vegetative state: Plan #Comfort measures only #Persistent vegetative state #Acute ischemic multifocal multiple vascular territory stroke, most likely thromboembolic source #Sepsis secondary to most likely pneumonia #Persistent fever, secondary to pneumonia versus unknown origin #NSTEMI #Adenocarcinoma of lower lobe of right lung #Hypertension #Diabetes mellitus #A-fib with RVR #Non-small cell lung cancer #Hilar lymphadenopathy #Acute kidney injury #Anasarca 2/2 to renal #Congestive heart failure, most likely diastolic #BIPAP dependent resp failure -Patient presented with strokes in multiple vascular distributions with after development of multiple neurological deficits returning and a strong right gaze preference and left-sided weakness suggesting that his MRI 3 days ago he developed progressive pathology in right hemisphere. 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 Initially patient placed on Eliquis as an outpatient. Echo transthoracic?did not show any obvious vegetations. Patient in persistent vegetative state. Please see previous progress notes for details. - Family elected to pursue comfort measures 06/02. Patient made comfort measures. - They would like to continue bipap for now and not ready to wean yet. - Transfer to private room today. Comfort measures only. at bedside. Attestations 2 Medical Necessity Statement*: comfort measures only Diagnoses Sepsis A41.9 Acute thromboembolic cerebrovascular accident I63.9 Non-ST elevation MN (NSTEMI) I21.4 Aspiration pneumonia of right lower lobe, unspecified aspiration pneumonia type J69.0 Pneumonia type: aspiration pneumonia Aspiration pneumonia type: unspecified Laterality: right Lung location: lower lobe of lung Adenocarcinoma of lower lobe of right lung C34.31 Hypertension I10 Diabetes E11.9 Paroxysmal atrial fibrillation I48.0 Atrial fibrillation type: paroxysmal Dyspnea on exertion R06.09 Non-small cell cancer of right lung C34.91 Laterality: right Right pulmonary lesion J98.4 Hilar lymphadenopathy R59.0 Anasarca R60.1 Heart failure I50.9 Accelerated hypertension I10 Aspiration into lower respiratory tract T17.800A BiPAP (biphasic positive airway pressure) dependence Z99.89 Acute kidney injury N17.9 Poor prognosis Z78.9 Neurological deficit present R29.818 Malnutrition E46 Hypoalbuminemia E88.09 Goals of care, counseling/discussion Z71.89 Comfort measures only status Z51.5 Persistent vegetative state R40.3
[2023-06-03 20:35] LABS: E. Chaffeensis AB IGG <1:64; E. Chaffeensis AB IGM <1:20
[2023-06-04] VITALS (8 sets, daily range): BP systolic 144; BP diastolic 89; PULSE 72–88; RESP 13–40; TEMP 36.9; O2SAT 95
[2023-06-04] MEDS: morphine 4 mg/mL SDV 1 mL IVP ×3 (03:17→22:35)
[2023-06-04] MEDS: morphine 10 mg/0.5 mL oral liq UD SUBLINGUAL (10:46)
--- NOTE | 2023-06-04 13:01 | P.PN_ITS ---
Subjective 2 Subjective: Appears comfortable. and daughter at bedside. BiPAP was removed shortly before I saw the patient. Vitals/I&O/Wt Last Vital Signs Temp 98.4 F 06/04/23 03:31 Pulse 88 06/04/23 08:36 Resp 18 06/04/23 03:31 BP 144/89 06/04/23 03:31 Pulse Ox 95 06/04/23 08:36 O2 Del Method BiPAP 06/04/23 03:31 FiO2 30 06/04/23 08:36 06/03/23 06/04/23 06/04/23 22:59 06:59 14:59 Output Total 750 / 750 350 / 1100 Balance -750 / -750 -350 / -1100 Physical Exam 2 Narrative: Full example secondary to comfort measures. Lung clear to auscultation. Is not tachypneic and appears to be comfortable at this time. Urinary Catheter Management: Sandhu: Cath Placed During This Visit: no Reason for Continuing Indwelling Catheter: Hospice/Comfort/Palliative Care Data 05/31/23 12:45 06/02/23 11:24 Micro: Microbiology 05/30/23 11:40 Blood Culture - Preliminary Blood 05/30/23 11:34 Blood Culture - Preliminary Blood A&P Assessment and plan (1) Sepsis: (2) Acute thromboembolic cerebrovascular accident: (3) Non-ST elevation PR (NSTEMI): . (4) Pneumonia: Qualifiers: Pneumonia type: aspiration pneumonia Aspiration pneumonia type: u nspecified Laterality: right Lung location: lower lobe of lung Qualified Code(s): J69.0 - Pneumonitis due to inhalation of food and vomit (5) Adenocarcinoma of lower lobe of right lung: (6) Hypertension: (7) Diabetes: (8) Atrial fibrillation: Qualifiers: Atrial fibrillation type: paroxysmal Qualified Code(s): I48.0 - Paroxysmal atrial fibrillation (9) Dyspnea on exertion: (10) Non-small cell lung cancer: Qualifiers: Laterality: right Qualified Code(s): C34.91 - Malignant neoplasm of unspecified part of right bronchus or lung (11) Right pulmonary lesion: (12) Hilar lymphadenopathy: (13) Anasarca: (14) Heart failure: (15) Accelerated hypertension: (16) Aspiration into lower respiratory tract: (17) BiPAP (biphasic positive airway pressure) dependence: (18) Acute kidney injury: (19) Poor prognosis: (20) Neurological deficit present: (21) Malnutrition: (22) Hypoalbuminemia: (23) Goals of care, counseling/discussion: (24) Comfort measures only status: (25) Persistent vegetative state: Plan #Comfort measures only #Persistent vegetative state #Acute ischemic multifocal multiple vascular territory stroke, most likely thromboembolic source #Sepsis secondary to most likely pneumonia #Persistent fever, secondary to pneumonia versus unknown origin #NSTEMI #Adenocarcinoma of lower lobe of right lung #Hypertension #Diabetes mellitus #A-fib with RVR #Non-small cell lung cancer #Hilar lymphadenopathy #Acute kidney injury #Anasarca 2/2 to renal #Congestive heart failure, most likely diastolic #BIPAP dependent resp failure - Comfort measures at this time as per standard protocol. ? BiPAP has been removed on request of the family. Patient on room air at this time. Comfort measures only. at bedside. Attestations 2 Medical Necessity Statement*: Comfort measures. Diagnoses Sepsis A41.9 Acute thromboembolic cerebrovascular accident I63.9 Non-ST elevation PR (NSTEMI) I21.4 Aspiration pneumonia of right lower lobe, unspecified aspiration pneumonia type J69.0 Pneumonia type: aspiration pneumonia Aspiration pneumonia type: unspecified Laterality: right Lung location: lower lobe of lung Adenocarcinoma of lower lobe of right lung C34.31 Hypertension I10 Diabetes E11.9 Paroxysmal atrial fibrillation I48.0 Atrial fibrillation type: paroxysmal Dyspnea on exertion R06.09 Non-small cell cancer of right lung C34.91 Laterality: right Right pulmonary lesion J98.4 Hilar lymphadenopathy R59.0 Anasarca R60.1 Heart failure I50.9 Accelerated hypertension I10 Aspiration into lower respiratory tract T17.800A BiPAP (biphasic positive airway pressure) dependence Z99.89 Acute kidney injury N17.9 Poor prognosis Z78.9 Neurological deficit present R29.818 Malnutrition E46 Hypoalbuminemia E88.09 Goals of care, counseling/discussion Z71.89 Comfort measures only status Z51.5 Persistent vegetative state R40.3
--- NOTE | 2023-06-04 15:13 | PC.NURSE ---
Patient has refused to let staff turn patient. Spouse states she does not want to move patient.
--- NOTE | 2023-06-04 15:15 | PC.NURSE ---
Patients spouse has refused to let staff obtain vital signs. Would like for patient to be left alone. Patient was taken off of Bipap this am.
[2023-06-04 20:06] LABS: Myeloperoxidase Antibody <1.0 AI (<1.0)
--- NOTE | 2023-06-05 01:20 | PM.DCS ---
Discharge Providers Date of Admission: 05/26/23 14:15 Date of Discharge: June 29, 2023 Attending Provider at Admission: Tung Mcbride MD Attending Provider at Discharge: Juani Mckeon MD Primary Care Provider: Lopez Smith Diagnoses at Discharge Discharge Diagnosis (1) Sepsis: Status: Acute (2) Acute thromboembolic cerebrovascular accident: Status: Acute (3) Non-ST elevation [place] (NSTEMI): Status: Acute (4) Pneumonia: Status: Acute Qualifiers: Pneumonia type: aspiration pneumonia Aspiration pneumonia type: unspecified Laterality: right Lung location: lower lobe of lung Qualified Code(s): J69.0 - Pneumonitis due to inhalation of food and vomit (5) Adenocarcinoma of lower lobe of right lung: Status: Acute (6) Hypertension: Status: Acute (7) Diabetes: Status: Acute (8) Atrial fibrillation: Status: Acute Qualifiers: Atrial fibrillation type: paroxysmal Qualified Code(s): I48.0 - Paroxysmal atrial fibrillation (9) Dyspnea on exertion: Status: Acute (10) Non-small cell lung cancer: Status: Acute Qualifiers: Laterality: right Qualified Code(s): C34.91 - Malignant neoplasm of unspecified part of right bronchus or lung (11) Right pulmonary lesion: Status: Acute (12) Hilar lymphadenopathy: Status: Acute (13) Anasarca: Status: Acute (14) Heart failure: Status: Acute (15) Accelerated hypertension: Status: Acute (16) Aspiration into lower respiratory tract: Status: Acute (17) BiPAP (biphasic positive airway pressure) dependence: Status: Acute (18) Acute kidney injury: Status: Acute (19) Poor prognosis: Status: Acute (20) Neurological deficit present: Status: Acute (21) Malnutrition: Status: Acute (22) Hypoalbuminemia: Status: Acute (23) Goals of care, counseling/discussion: Status: Acute (24) Comfort measures only status: Status: Acute (25) Persistent vegetative state: Status: Acute Reason for Visit Reason for Visit: Stroke Hospital Course Hospital Course Patient presented with strokes in multiple vascular distributions with after development of multiple neurological deficits returning and a strong right gaze preference and left-sided weakness suggesting that his MRI 3 days ago he developed progressive pathology in right hemisphere. 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 Initially patient placed on Eliquis as an outpatient. Echo transthoracic?did not show any obvious vegetations. Patient in persistent vegetative state. Please see previous progress notes for details. - Family elected to pursue comfort measures 06/02. Patient made comfort measures. He 06/05/2023 time of 1.19 AM Physical Exam Urinary Catheter Management: Sandhu: Cath Placed During This Visit: no Reason for Continuing Indwelling Catheter: Hospice/Comfort/Palliative Care Discharge Data Studies Completed and Pending Completed Studies During Hospitalization Category Date Time Status CT angio head neck [CT angio headneck* 60648/87884] Cat Scan 05/30/23 16:[address] [id number] Urgent Cat Scan 05/30/23 12:[address] chest wo con [id number] Routine Cat Scan 05/26/23 17:[address] head wo con* [id number] Stat Cat Scan 05/30/23 15:04 Completed XR chest 1V [id number] Urgent Exams 05/30/23 07:56 Completed XR chest 1V portable [id number] Stat Exams 05/29/23 22:43 Completed XR chest 1V portable [id number] Stat Exams 05/31/23 12:00 Completed XR chest 1V portable [id number] Urgent Exams 05/28/23 17:02 Completed Blood Cultures ([facility]) Routine Lab 05/26/23 15:50 Completed Blood Cultures ([facility]) Routine Lab 05/26/23 15:57 Completed Blood Cultures ([facility]) Routine Lab 05/28/23 17:54 Completed Blood Cultures ([facility]) Routine Lab 05/28/23 18:13 Completed Blood Cultures ([facility]) Routine Lab 05/30/23 11:34 Completed Blood Cultures ([facility]) Routine Lab 05/30/23 11:40 Completed MR head wo con* [id number] Routine MRI 05/27/23 13:00 [place] [id number] Routine Ultrasound 05/31/23 19:32 Completed CV. echo limited 64090 Routine Ultrasound 05/31/23 08:53 Completed CV. echo limited 22574 Routine Ultrasound 05/31/23 13:13 Completed CV. echo w/w bubble cont [id number] Routine Ultrasound 05/27/23 06:00 Completed US venous duplex lower extremity bilat [CV venous Ultrasound 05/31/23 08:41 [place] [id number]] Routine Radiology Impressions Chest CT 05/26/23 17:27 IMPRESSION: 1. Mild centrilobular opacities in the peripheral lungs is most likely infectious bronchiolitis. 2. Opacity in the right lung base could represent atelectasis and scarring from previous pneumonia. Active pneumonia is not entirely excluded. Head MRI 05/27/23 13:00 IMPRESSION: Extensive multifocal bilateral cerebral and cerebellar acute/subacute infarcts. Noncontrast technique precludes further evaluation for underlying neoplastic component given provided history. ADDENDUM: 05/27/23 1625 THIS REPORT CONTAINS FINDINGS THAT MAY BE CRITICAL TO PATIENT CARE. The findings were verbally communicated via telephone conference at 4:23 PM COMPUTER FORENSICS ANALYST on 05/27/2023 with TUNG MCBRIDE. The findings were acknowledged and understood. Head CT 05/30/23 15:04 IMPRESSION: 1. Evolving, subacute infarcts at left anterior frontal lobe, frontal operculum, insula, and external capsule, left posterior parietal lobe, and to lesser extent, right mid frontal lobe and benitez radiata, without hemorrhagic transformation. Subacute, < 6 mm, lacunar infarct at anterior limb of right internal capsule. Given distribution, above are suspicious for embolic infarcts. 2. Mild-moderate cerebral volume loss. 3. Acute, bilateral ethmoid sinusitis. Mild, chronic, bilateral maxillary and sphenoid sinusitis. 4. Atherosclerosis. ADDENDUM: 05/30/23 1848 < 3.9 cm, slightly lobulated, low attenuation (Hounsfield units 9), extra-axial fluid collection at anteromedial aspect of right middle cranial fossa is consistent with arachnoid cyst with correlated prior MRI. Head/Neck CTA 05/30/23 16:42 IMPRESSION: 1. Evolving, subacute infarcts at left anterior frontal lobe, frontal operculum, insula, and external capsule, left posterior parietal lobe, and to lesser extent, right mid frontal lobe and benitez radiata, without hemorrhagic transformation. Subacute, < 6 mm, lacunar infarct at anterior limb of right internal capsule. Given distribution, above are suspicious for embolic infarcts. 2. Mild-moderate cerebral volume loss. 3. Acute, bilateral ethmoid sinusitis. Mild, chronic, bilateral maxillary and sphenoid sinusitis. 4. Atherosclerosis. IMPRESSION: 1. Atherosclerosis. No stenosis or occlusion. 2. Several, < 1.4 cm in short axis, non and mildly enlarged, mediastinal and left hilar lymph nodes, nonspecific in nature. 3. Moderate extravasated contrast within fat at right medial upper arm. REFERENCES: NASCET CRITERIA. The degree of stenosis in the cervical segment of the internal carotid artery is based on NASCET criteria. Normal is no stenosis. Mild is less than 50% stenosis. Moderate is 50-69% stenosis. Severe is 70% to 99% stenosis. Total occlusion is no detectable patent lumen. Laboratory Results WBC 12.65 10^3/uL (3.29-11.43) H 05/31/23 12:45 RBC 4.60 10^6/uL (3.85-5.65) 05/31/23 12:45 Hgb 13.60 g/dL (11.27-16.99) 05/31/23 12:45 Hct 46.0 % (37-53) 05/31/23 12:45 MCV 100.0 fl (82-101) 05/31/23 12:45 MCH 29.6 pg (27-33) 05/31/23 12:45 MCHC 29.6 g/dL (30-55) L 05/31/23 12:45 RDW 14.7 % (12.1-15.1) 05/31/23 12:45 Plt Count 207 10^3/cmm (157-399) D 05/31/23 12:45 MPV 10.3 fL (7.4-10.4) 05/31/23 12:45 Neut % (Auto) 81.4 % 05/31/23 03:26 Lymph % (Auto) 5.3 % 05/31/23 03:26 Ogle % (Auto) 10.1 % 05/31/23 03:26 Eos % (Auto) 2.3 % 05/31/23 03:26 Baso % (Auto) 0.3 % 05/31/23 03:26 Neut # (Auto) 8.67 10^3/uL (1.8-7.7) H 05/31/23 03:26 Lymph # (Auto) 0.6 10^3/uL (0.8-4.8) L 05/31/23 03:26 Ogle # (Auto) 1.1 10^3/uL (0.2-0.9) H 05/31/23 03:26 Eos # (Auto) 0.2 10^3/uL (0.0-0.8) 05/31/23 03:26 Baso # (Auto) 0.0 10^3/uL (0.0-0.1) 05/31/23 03:26 Nucleated RBC % (auto) 0 % 05/31/23 03:26 Total Counted 100 (0-100) 05/31/23 12:45 Atypical Lymphs % 4.0 % (0-5) 05/31/23 12:45 Absolute Neutrophils 10.2 10^3/cmm (1.4-6.5) H 05/31/23 12:45 Segmented Neutrophils 81 % 05/31/23 12:45 Abs Segm Neuts (Man) 10.2 10/cmm (1.6-7.1) H 05/31/23 12:45 Band Neutrophils 0.0 % 05/31/23 12:45 Abs Band Neuts (Man) 0.0 10^3/cmm (0.0-1.2) 05/31/23 12:45 Absolute Lymphocytes 1.3 10^3/cmm (1.2-3.4) 05/31/23 12:45 Lymphocytes (Manual) 6 % 05/31/23 12:45 Monocytes (Manual) 6.0 % 05/31/23 12:45 Absolute Monocytes 0.8 10^3/cmm (0.1-0.6) H 05/31/23 12:45 Eosinophils (Manual) 3 % 05/31/23 12:45 Absolute Eosinophils 0.4 10^3/cmm (0.0-0.7) 05/31/23 12:45 Basophils (Manual) 0.0 % 05/31/23 12:45 Absolute Basophils 0.0 10^3/cmm (0.0-0.2) 05/31/23 12:45 Nucleated RBCs # 0.0 /100WBC 05/31/23 03:26 Platelet Estimate Normal (Normal) 05/31/23 12:45 Anisocytosis 1+ H 05/31/23 12:45 ESR 58 mm/hr (0-10) H 05/31/23 03:26 Heparin Require Pat 0.035 05/28/23 17:54 Specimen Type Arterial 05/31/23 11:56 Sample Site Radial, left 05/31/23 11:56 ABG pH 7.28 (7.35-7.45) L 05/31/23 11:56 ABG pCO2 58.4 mmHg (35-45) H 05/31/23 11:56 ABG pO2 84.9 mmHg (80.0-100.0) 05/31/23 11:56 ABG PO2/FiO2 Ratio 0 05/31/23 11:56 ABG HCO3 27.6 mmol/L (22-26) H 05/31/23 11:56 ABG O2 Saturation 95.4 05/31/23 11:56 ABG Base Excess -0.4 mmol/L (-2.0-2.0) 05/31/23 11:56 Gildardo Test Pos 05/31/23 11:56 A-a O2 Gradient 54.3 mmHg (5-10) H 05/31/23 11:56 Hematocrit 44.8 % (42-52) 05/31/23 11:56 Hgb O2 Saturation 93.9 % (95-100) L 05/31/23 11:56 Carboxyhemoglobin 1.2 %THgb (0.4-20.1) 05/31/23 11:56 Methemoglobin 0.3 % (0.4-1.5) L 05/31/23 11:56 Total Hemoglobin 14.6 g/dL (14-18) 05/31/23 11:56 Sodium 166.0 mmol/L (131-143) H 05/31/23 11:56 Potassium 4.2 mmol/L (3.5-5.0) 05/31/23 11:56 Glucose 137.0 mg/dL (70-115) H 05/31/23 11:56 Ionized Calcium 1.3 mmol/L (1.1-1.4) 05/31/23 11:56 O2 Delivery Device Bipap 05/31/23 11:56 FiO2 80.0 % 05/31/23 11:56 PEEP 7.0 cmH20 05/31/23 11:56 Chief Environmental Commitment Officer ID Gd 05/31/23 11:56 Sodium 154 mmol/L (136-145) H 06/02/23 11:24 Potassium 2.8 mmol/L (3.5-5.1) L* 06/02/23 11:24 Chloride 118 mmol/L (98-107) H 06/02/23 11:24 Carbon Dioxide 25 mmol/L (22-29) 06/02/23 11:24 Anion Gap 13.8 (5-19) 06/02/23 11:24 BUN 35 mg/dL (8-23) H 06/02/23 11:24 Creatinine 1.7 mg/dL (0.7-1.2) H 06/02/23 11:24 GFR Calculation 41.3 mL/min (90-130) L 06/02/23 11:24 Glucose 165 mg/dL (65-115) H 06/02/23 11:24 POC Glucose 154 mg/dL (70-110) H 06/02/23 05:44 Estimat Average Glucose 97 05/27/23 04:16 Hemoglobin A1c 5.0 % (4.0-6.0) 05/27/23 04:16 Calculated Osmolality 330 mOsm/kg (285-295) H 06/02/23 11:24 Lactic Acid 1.6 mmol/L (0.5-2.2) 05/26/23 15:50 Lactate 1.8 mmol/L (0.5-2.2) 05/31/23 12:45 Calcium 9.0 mg/dL (8.5-10.5) 06/02/23 11:24 Phosphorus 6.1 mg/dL (2.5-4.5) H 05/30/23 00:39 Magnesium 2.6 mg/dL (1.7-2.3) H 05/31/23 12:45 Iron 15 ug/dL (59-158) L 05/26/23 15:50 TIBC 174 mcg/dl 05/26/23 15:50 % Saturation 8.6 % (20-50) L 05/26/23 15:50 Unsat Iron Binding 159 ug/dL (112-347) 05/26/23 15:50 Total Bilirubin 0.4 mg/dL (0.15-1.2) 05/31/23 12:45 AST 44 U/L (0-40) H 05/31/23 12:45 ALT 24 U/L (0-41) 05/31/23 12:45 Alkaline Phosphatase 94 U/L (40-130) 05/31/23 12:45 Troponin T 5th Gen ng/L 369 ng/L (0-15) H* 05/31/23 11:49 Troponin T Baseline 410 ng/L (0-15) H* 05/26/23 15:50 Troponin T 120 Minute 425.4 ng/L (0-15) H 05/26/23 18:26 Delta Troponin T 15.4 ABS# (0-10) H* 05/26/23 18:26 Troponin T Hi Sens 6Hr 571.8 ng/L (0-15) H 05/26/23 21:57 Troponin T Hi Sens 6Hr Delta 161.8 ng/L (0-12) H* 05/26/23 21:57 C-Reactive Protein 78.5 mg/L (0.0-4.9) H 05/31/23 03:26 NT-Pro-B Natriuret Pep 4946 pg/mL (0-125) H 05/30/23 00:39 Total Protein 7.3 g/dL (6.6-8.7) 05/31/23 12:45 Albumin 3.1 g/dL (3.5-5.2) L 05/31/23 12:45 Globulin 4.2 g/dL (1.3-4.6) 05/31/23 12:45 Triglycerides 104 mg/dL (0-150) 05/27/23 04:16 Cholesterol 135 mg/dL (0-200) 05/27/23 04:16 LDL Cholesterol, Calc 73 mg/dL (50-129) 05/27/23 04:16 HDL Cholesterol 41 mg/dL (60-100) L 05/27/23 04:16 LDL/HDL Ratio 1.78 RATIO (0.00-3.22) 05/27/23 04:16 Cholesterol/HDL Ratio 3.29 mg/dL (1.0-5.00) 05/27/23 04:16 Vitamin B12 1083 pg/mL (232-1245) 05/26/23 15:50 Folate > 20.0 ng/mL (4.5-32.2) 05/27/23 04:16 Procalcitonin 0.13 ng/mL (0-0.5) 05/30/23 00:39 TSH 0.34 uIU/mL (0.27-4.20) 05/26/23 15:50 Urine Color Yellow (Yellow) 05/26/23 18:48 Urine Appearance Turbid (CLEAR) A 05/26/23 18:48 Urine pH 5 (5-7) 05/26/23 18:48 Ur Specific [place] 1.015 (1.005-1.030) 05/26/23 18:48 Urine Protein 3+ (Negative) H 05/26/23 18:48 Urine Glucose (UA) Norm (Normal) 05/26/23 18:48 Urine Ketones 1+ (Negative) H 05/26/23 18:48 Urine Blood 3+ (Negative) H 05/26/23 18:48 Urine Nitrate Negative (Negative) 05/26/23 18:48 Urine Bilirubin 1+ (Negative) H 05/26/23 18:48 Urine Urobilinogen 1 mg/dL (Negative) H 05/26/23 18:48 Ur Leukocyte Esterase Trace (Negative) H 05/26/23 18:48 Urine RBC 25-40 /hpf (0-2) H 05/26/23 18:48 Urine WBC 55-80 /hpf (0-5) H 05/26/23 18:48 Ur Squamous Epith Cells 5-10 /hpf (0-5) H 05/26/23 18:48 Amorphous Sediment 1+ /hpf 05/26/23 18:48 Urine Bacteria 1+ /hpf (NONE) H 05/26/23 18:48 Hyaline Casts 0-4 /lpf H 05/26/23 18:48 Fine Granular Casts 0-4 /lpf H 05/26/23 18:48 Coarse Granular Casts 5-10 /lpf H 05/26/23 18:48 Urine Mucus 1+ /hpf 05/26/23 18:48 Vancomycin Trough 27.6 ug/mL (10-15) H* 06/01/23 16:15 ALONDRA Screen Positive (NEGATIVE) A 05/31/23 12:45 ALONDRA Titer 1:80 titer H 05/31/23 12:45 ALONDRA Pattern Cytoplasmic A 05/31/23 12:45 ANCA Screen Negative (Negative) 05/31/23 12:45 ANCA Titer Not Reportable 05/31/23 12:45 Proteinase 3 (PR3) Ab <1.0 AI (<1.0) 05/31/23 12:45 Myeloperoxidase Ab <1.0 AI (<1.0) 05/31/23 12:45 Heparin-induced Ab Negative (NEGATIVE) 05/28/23 17:54 UF Heparin Low Dose 1 0 % release 05/28/23 17:54 UF Heparin Low Dose 2 0 % release 05/28/23 17:54 UF Heparin High Dose 0 % release 05/28/23 17:54 JOSE M Unfract Heparin Negative (NEGATIVE) 05/28/23 17:54 Adenovirus (PCR) Not detected (NOT DETECT) 05/28/23 18:28 Lyme Ab (Western Blot) <0.90 index 05/31/23 03:26 C. pneumoniae DNA (PCR) Not detected (NOT DETECT) 05/28/23 18:28 Coronavirus 229E (PCR) Not detected (NOT DETECT) 05/28/23 18:28 CMV Culture Source Whole blood 05/31/23 03:26 CMV IgG Ab >10.00 U/mL H 05/31/23 03:26 CMV IgM Ab <30.00 AU/mL 05/31/23 03:26 CMV DNA Quant PCR Not detected IU/mL 05/31/23 03:26 CMV Qnt PCR Interp Not detected Log IU/mL 05/31/23 03:26 E. chaffeensis IgG Ab <1:64 05/31/23 03:26 E. chaffeensis IgM Ab <1:20 05/31/23 03:26 E. chaffeensis Interp See note 05/31/23 03:26 E. chaffeensis Comment Not Reportable 05/31/23 03:26 HIV 1&2 Ab & HIV 1 Ag Non-reactive (Non-Reactiv) 05/31/23 03:26 HIV 1&2 Antibody Non-reactive (Non-Reactiv) 05/31/23 03:26 Human Metapneumovir PCR Not detected (NOT DETECT) 05/28/23 18:28 Influenza A (H1) PCR Not detected (NOT DETECT) 05/28/23 18:28 Influ A (H1/09) PCR Not detected (NOT DETECT) 05/28/23 18:28 Influenza A (H3) PCR Not detected (NOT DETECT) 05/28/23 18:28 Influenza Type A (PCR) Not detected (NOT DETECT) 05/28/23 18:28 Influenza Type B (PCR) Not detected (NOT DETECT) 05/28/23 18:28 M. pneumoniae (PCR) Not detected (NOT DETECT) 05/28/23 18:28 Parainfluenza 1 (PCR) Not detected (NOT DETECT) 05/28/23 18:28 Parainfluenza 2 (PCR) Not detected (NOT DETECT) 05/28/23 18:28 Parainfluenza 3 (PCR) Not detected (NOT DETECT) 05/28/23 18:28 Parainfluenza 4 (PCR) Not detected (NOT DETECT) 05/28/23 18:28 RSV Type A (PCR) Not detected (NOT DETECT) 05/28/23 18:28 RSV Type B (PCR) Not detected (NOT DETECT) 05/28/23 18:28 Entero/Rhino (PCR) Not detected (NOT DETECT) 05/28/23 18:28 Rickettsia IgG Ab Not detected 05/31/23 03:26 Rickettsia IgM Ab Not detected 05/31/23 03:26 SARS-CoV-2 (PCR) Not detected (NOT DETECT) 05/28/23 18:28 MRSA (PCR) Not detected (NOT DETECTED) 05/26/23 19:26 Vitals Last Vital Signs Temp 98.4 F 06/04/23 03:31 Pulse 88 06/04/23 08:36 Resp 40 H 06/04/23 22:35 BP 144/89 06/04/23 03:31 Pulse Ox 95 06/04/23 08:36 O2 Del Method BiPAP 06/04/23 03:31 FiO2 30 06/04/23 08:36 Discharge Plan Discharge Patient Disposition: Discharge Attestations Time Spent in Discharge Care*: less than 30 min Quality Metrics Clinical Quality Measures [ No reported AMI, CVA or VTE this stay] Coding Level of Care Code 23601 Diagnoses Sepsis A41.9 Acute thromboembolic cerebrovascular accident I63.9 Non-ST elevation IL (NSTEMI) I21.4 Aspiration pneumonia of right lower lobe, unspecified aspiration pneumonia type J69.0 Pneumonia type: aspiration pneumonia Aspiration pneumonia type: unspecified Laterality: right Lung location: lower lobe of lung Adenocarcinoma of lower lobe of right lung C34.31 Hypertension I10 Diabetes E11.9 Paroxysmal atrial fibrillation I48.0 Atrial fibrillation type: paroxysmal Dyspnea on exertion R06.09 Non-small cell cancer of right lung C34.91 Laterality: right Right pulmonary lesion J98.4 Hilar lymphadenopathy R59.0 Anasarca R60.1 Heart failure I50.9 Accelerated hypertension I10 Aspiration into lower respiratory tract T17.800A BiPAP (biphasic positive airway pressure) dependence Z99.89 Acute kidney injury N17.9 Poor prognosis Z78.9 Neurological deficit present R29.818 Malnutrition E46 Hypoalbuminemia E88.09 Goals of care, counseling/discussion Z71.89 Comfort measures only status Z51.5 Persistent vegetative state R40.3
--- NOTE | 2023-06-05 01:27 | PC.NURSE ---
[facility] - Ref #[id number] Pt not candidate for [facility] donation due to medical dx. [facility] pending at this time.
--- NOTE | 2023-06-05 02:39 | PC.NURSE ---
Pt was without breath/heartbeat and two nurses verified at 0119. Family was at bedside. supervisor machine setter and physician notified. [facility] was notified by warehouse director and declined. home of choice is [facility] in [place], [place]. Post mortem care was performed, all lines removed from patient.
--- NOTE | 2023-06-05 03:41 | PC.NURSE ---
Patient taken to [facility] at 0340 by kiln head house operator.
--- NOTE | 2023-06-05 06:07 | PC.NURSE ---
Pt released by [facility]. Pt to be released to Home.
[2023-06-06 20:04] LABS: RMSF IGG NOT DETECTED; RMSF IGM NOT DETECTED
[2023-06-06 22:15] LABS: ANCA Screen Negative (Negative)
== END 2023-06-05 03:30 | disposition expired | DRG 64 ==
LOC: ICU 14:33 → MEDSURG 05-27 16:21 → CSU 05-29 14:38 → ICU 05-31 12:44 → MEDSURG 06-03 15:11
PROVIDERS: Family Medicine; Hospitalist; Admitting Provider Student in an Organized Health Care Education/Training Program; PCP Family Medicine; Visit Provider Internal Medicine
DX: I63.413 Cerebral infarction due to embolism of bilateral middle cerebral arteries (principal); A41.9 Sepsis, unspecified organism; I21.4 Non-ST elevation (NSTEMI) myocardial infarction; J96.90 Respiratory failure, unspecified, unspecified whether with hypoxia or hypercapnia; J69.0 Pneumonitis due to inhalation of food and vomit; G81.94 Hemiplegia, unspecified affecting left nondominant side; C34.31 Malignant neoplasm of lower lobe, right bronchus or lung; I13.0 Hypertensive heart and chronic kidney disease with heart failure and stage 1 through stage 4 chronic kidney disease, or unspecified chronic kidney disease; N17.9 Acute kidney failure, unspecified; I50.32 Chronic diastolic (congestive) heart failure; G93.40 Encephalopathy, unspecified; E46 Unspecified protein-calorie malnutrition; E87.0 Hyperosmolality and hypernatremia; Z87.891 Personal history of nicotine dependence; E78.5 Hyperlipidemia, unspecified; K21.9 Gastro-esophageal reflux disease without esophagitis; I48.0 Paroxysmal atrial fibrillation; Z79.01 Long term (current) use of anticoagulants; R59.0 Localized enlarged lymph nodes; Z66 Do not resuscitate; Z51.5 Encounter for palliative care; E11.22 Type 2 diabetes mellitus with diabetic chronic kidney disease; N18.31 Chronic kidney disease, stage 3a; E88.09 Other disorders of plasma-protein metabolism, not elsewhere classified; E87.6 Hypokalemia
CPT/HCPCS: 36415; 36416; 36591; 36600; 70450; 70496; 70498; 70551; 71045; 71250; 74176; 80048; 80051; 80053; 80061; 80202; 81001; 82330; 82607; 82746; 82803; 82805; 82962; 83036; 83540; 83550; 83605; 83735; 83880; 84100; 84145; 84443; 84484; 85007; 85025; 85027; 85651; 86021; 86036; 86038; 86140; 86403; 86618; 86666; 86757; 87040; 87086; 87449; 87486; 87496; 87581; 87633; 87641; 87806; 92526; 92610; 93005; 93308; 93970; 94640; 94660; 94664; 96372; 96376; 97161; 97166; 97530; 97535; A4222; C8929; C9113; J0131; J0282; J0283; J0360; J0456; J1160; J1650; J1885; J1940; J2270; J2543; J2930; J3370; J3480; J3490; J7042; J7050; J7060; J7070; J7626; J7799; Q9967